=== PATIENT | female | born 1950 | race Caucasian/White ===

== ENCOUNTER 2024-10-16 13:09 | Outpatient (REF) | payer OTHER, SELFPAY ==
[2024-10-16 17:34] LABS: Influenza A PCR POSITIVE (Negative); Influenza B PCR NEGATIVE (Negative); Resp Syncy Virus RNA Qual PCR NEGATIVE (Negative); SARS COV2 PCR INHOUSE NEGATIVE (Negative)
--- OUTSIDE RECORDS SUMMARY | 2024-10-16 18:09 | XMS_ITS | Clinical Summary ---
Author Organization [facility] [address] [place] [address] Address [address] [place], [place] Phone Care Team Providers Care Ball Ender Name Role Phone Marjorie Viveros MD Primary Care Provider [phone] Allergies No known active allergies Medications cholecalciferol [...] 11:00 AM EST Office Visit Adult Medicine [facility] [address] [place] [address] Lauryn Fernández PA Hypercholesterolemia (Primary Dx); Vitamin [...] 12 & older) Biv alent, COVID-19 05/17/2023,06/24/2022 [employer] Covid-19 Bivalent, Or iginal + Ba.1 (Non-US Trademark [employer] Bivalent) 06/24/2022 [employer] SARS-CoV-2 COVID-19, mRNA, LNP-S, preservative free 05/23/2021 [...] care for your loved ones. For example, school child care attendant or elderly care for an older adult? [...] 11:00 AM EDT Office Visit Adult Medicine [facility] [address] [place] [address] Marjorie Viveros MD [address] [place] [address] 03/04/2025 10:30 AM EDT Appointment Radiology Department - [address] [phone] Health Maintenance Due Date Last Done Comments [...] mg/dL LAB CHEMISTRY METHOD 08/05/2024 12:17 PM [facility] Triglycerides 193(H) 0 - 150 mg/dL LAB CHEMISTRY METHOD 08/05/2024 12:17 PM [facility] HDL 75 >=40 mg/dL LAB CHEMISTRY METHOD 08/05/2024 12:17 PM [facility] LDL Calculated 93 0 - 100 mg/dL LAB CHEMISTRY METHOD 08/05/2024 12:17 PM [facility] VLDL Cholesterol Rolando 38.6 mg/dL LAB CHEMISTRY METHOD 08/05/2024 12:17 PM [facility] Non HDL Chol. (LDL+VLDL) 132 <145 mg/dL LAB CHEMISTRY METHOD 08/05/2024 12:17 PM [facility] Chol/HDL Ratio 2.8 0.0 - 4.4 LAB CHEMISTRY METHOD 08/05/2024 12:17 PM [facility] Blood Venous blood specimen / Unknown Venipuncture / Unknown 08/05/2024 9:17 AM EST 08/05/2024 9:17 AM EST us Lauryn ORTEGA LAB BLOOD ORDERABLES Final Re sult [facility] [address] [place] [address], * (ABNORMAL) CBC auto differential (08/05/2024 9:17 AM EST) WBC 4.6(L) 4.8 - 10.8 K/mcL LAB HEMETOLOGY METHOD 08/05/2024 10:09 AM [facility] RBC 4.30 3.80 - 4.80 M/mcL LAB HEMETOLOGY METHOD 08/05/2024 10:09 AM [facility] Hemoglobin 13.7 11.5 - 16.0 g/dL LAB HEMETOLOGY METHOD 08/05/2024 10:09 AM [facility] Hematocrit 40.1 35.0 - 47.0 % LAB HEMETOLOGY METHOD 08/05/2024 10:09 AM [facility] MCV 94.4 79.0 - 98.0 FL LAB HEMETOLOGY METHOD 08/05/2024 10:09 AM [facility] MCH 32.2(H) 27.0 - 32.0 pcg LAB HEMETOLOGY METHOD 08/05/2024 10:09 AM [facility] MCHC 34.2 32.0 - 37.0 g/dL LAB HEMETOLOGY METHOD 08/05/2024 10:09 AM [facility] RDW 12.5 11.0 - 15.0 % LAB HEMETOLOGY METHOD 08/05/2024 10:09 AM [facility] Platelets 214 130 - 400 K/mcL LAB HEMETOLOGY METHOD 08/05/2024 10:09 AM [facility] MPV 10.5 7.0 - 11.0 FL LAB HEMETOLOGY METHOD 08/05/2024 10:09 AM [facility] NRBC 0.0 <1.0 % LAB HEMETOLOGY METHOD 08/05/2024 10:09 AM [facility] NRBC Absolute 0.00 <0.10 K/mcL LAB HEMETOLOGY METHOD 08/05/2024 10:09 AM [facility] Neutrophils Relative 60.5 % LAB HEMETOLOGY METHOD 08/05/2024 10:09 AM [facility] Lymphocytes Relative 30.6 % LAB HEMETOLOGY METHOD 08/05/2024 10:09 AM [facility] Monocytes Relative 6.6 % LAB HEMETOLOGY METHOD 08/05/2024 10:09 AM [facility] Eosinophils Relative 1.7 % LAB HEMETOLOGY METHOD 08/05/2024 10:09 AM EST [facility] Basophils Relative 0.2 % LAB HEMETOLOGY METHOD 08/05/2024 10:09 AM EST [facility] Immature Granulocytes Relative 0.4 % LAB HEMETOLOGY METHOD 08/05/2024 10:09 AM [facility] Neutrophils Absolute 2.77 1.50 - 7.00 K/mcL LAB HEMETOLOGY METHOD 08/05/2024 10:09 AM EST [facility] Lymphocytes Absolute 1.40 1.00 - 5.00 K/mcL LAB HEMETOLOGY METHOD 08/05/2024 10:09 AM [facility] Monocytes Absolute 0.30 0.20 - 1.00 K/mcL LAB HEMETOLOGY METHOD 08/05/2024 10:09 AM [facility] Eosinophils Absolute 0.08 0.00 - 0.50 K/mcL LAB HEMETOLOGY METHOD 08/05/2024 10:09 AM EST [facility] Basophils Absolute 0.01 0.00 - 0.20 K/mcL LAB HEMETOLOGY METHOD 08/05/2024 10:09 AM [facility] Immature Granulocytes Absolute 0.02 0.00 - 0.03 K/mcL LAB HEMETOLOGY METHOD 08/05/2024 10:09 AM [facility] Blood Venous blood specimen / Unknown Venipuncture / Unknown 08/05/2024 9:17 AM EST 08/05/2024 9:17 AM EST us Lauryn ORTEGA LAB BLOOD ORDERABLES Final Re sult [facility] [address] [place] [address], * Vitamin D 25 hydroxy (08/05/2024 9:17 AM EST) Vit D, 25-Hydroxy 36.6 30.0 - 80.0 ng/mL LAB CHEMISTRY METHOD 08/05/2024 12:26 PM [facility] Blood Venous blood specimen / Unknown Venipuncture / Unknown 08/05/2024 9:17 AM EST 08/05/2024 9:17 AM EST us Lauryn ORTEGA LAB BLOOD ORDERABLES Final Re sult [facility] [address] [place] [address], [place] [phone] * Comprehensive metabolic panel (08/05/2024 9:17 AM EST) Sodium 140 133 - 145 mmol/L LAB CHEMISTRY METHOD 08/05/2024 12:17 PM [facility] Potassium 4.2 3.5 - 5.5 mmol/L LAB CHEMISTRY METHOD 08/05/2024 12:17 PM [facility] Chloride 106 96 - 110 mmol/L LAB CHEMISTRY METHOD 08/05/2024 12:17 PM [facility] CO2 27 21 - 32 mmol/L LAB CHEMISTRY METHOD 08/05/2024 12:17 PM [facility] Anion Gap 7 3 - 11 LAB CHEMISTRY METHOD 08/05/2024 12:17 PM [facility] Glucose 96 70 - 100 mg/dL LAB CHEMISTRY METHOD 08/05/2024 12:17 PM [facility] BUN 9 5 - 25 mg/dL LAB CHEMISTRY METHOD 08/05/2024 12:17 PM [facility] Creatinine 0.88 0.50 - 1.10 mg/dL LAB CHEMISTRY METHOD 08/05/2024 12:17 PM [facility] eGFR 69 >=60 mL/min/1. 73m2 LAB CHEMISTRY METHOD 08/05/2024 12:17 PM [facility] Comment:Calculation based on the??Chronic Kidney Disease Epidemiology Collaboration (CKD-EPI) equation refit??without adjustment for race. BUN/Creatinine Ratio 10.2 LAB CHEMISTRY METHOD 08/05/2024 12:17 PM [facility] Calcium 9.8 8.5 - 10.5 mg/dL LAB CHEMISTRY METHOD 08/05/2024 12:17 PM [facility] AST (SGOT) 20 10 - 42 unit/L LAB CHEMISTRY METHOD 08/05/2024 12:17 PM [facility] ALT (SGPT) 28 10 - 60 unit/L LAB CHEMISTRY METHOD 08/05/2024 12:17 PM [facility] Alkaline Phosphatase 76 42 - 121 unit/L LAB CHEMISTRY METHOD 08/05/2024 12:17 PM [facility] Total Protein 7.2 6.0 - 8.0 g/dL LAB CHEMISTRY METHOD 08/05/2024 12:17 PM [facility] Albumin 4.1 3.2 - 5.0 g/dL LAB CHEMISTRY METHOD 08/05/2024 12:17 PM [facility] Total Bilirubin 0.8 0.0 - 1.4 mg/dL LAB CHEMISTRY METHOD 08/05/2024 12:17 PM [facility] Blood Venous blood specimen / Unknown Venipuncture / Unknown 08/05/2024 9:17 AM EST 08/05/2024 9:17 AM EST us Lauryn ORTEGA LAB BLOOD ORDERABLES Final Re sult [facility] [address] [place] [address], * SCREENING MAMMOGRAPHY BI 2-VIEW BREAST INC [...] (World Health Organization Fracture Risk Assessment) [facility] Department of Internal Medicine recommends [...] (World Health Organization Fracture Risk Assessment) [facility] Department of Internal Medicine recommendsusing [...] Resu lt * Hepatitis C Screening (12/31/2013) [facility] Hepatitis C Screening abstracted Historical Provider HEALTH MAINTENANCE Final Result from Last 3 Months or Most Recently Relevant to Health Maintenance Insurance [employer] Care Teams Ball Ender Relationship Specialty Start Date End Date Marjorie Viveros MD [address] [place] [address] PCP - General Internal Medicine 01/13/21
== END 2024-10-16 13:10 | disposition home or self-care (01) ==
LOC: HO.LNP 13:09
PROVIDERS: PCP Internal Medicine; Visit Provider Physician Assistant
DX: B34.9 Viral infection, unspecified (principal); R09.89 Other specified symptoms and signs involving the circulatory and respiratory systems; R50.9 Fever, unspecified; R05.9 Cough, unspecified
CPT/HCPCS: 0241U; 99202

== ENCOUNTER 2024-10-16 13:09 | Outpatient (AMB) | payer OTHER, SELFPAY ==
--- NOTE | 2024-10-16 13:39 | AM.OFFWIN_ITS ---
Intake Vital Signs 10/16/24 13:42 Weight 157 lb 6 oz BP 118/80 Blood Pressure Location Rt brachial Position Sitting Pulse 80 Pulse Source Pulse Oximeter Temp 98.7 F Temp Source Oral Pulse Oximetry (%) 97 Oxygen Delivery Method Room Air Intake Visit Reasons: CST Respiratory symptoms Intake Note: Patient here for fatigue,loss of appetite, no energy and cough that started Saturday. Patient Tobacco Use Status: Never used Tobacco Allergies No Known Allergies Allergy (Verified 10/16/24 13:44) Do you need a note to return to daycare/school/sports/work: No HPI HPI Comments History of Present Illness Details History - The patient is a 74-year-old female wi th acute symptoms of an upper respiratory infection including cough, congestion, and shortness of breath for three days. - The patient reports exacerbation in [facility] affecting daily routine and nutritional intake since the onset. - Negative COVID-19 test at home; experi encing low-grade fevers; no known sick contacts. - Initial inhaler usage showed no signif icant effect. The patient has taken [id number] medications like loratadine and Corecidin. - Denies wheezing but reports overall re spiratory difficulty and headaches without sinus pain when assessed. Physical Exam General: Cooperative, healthy appearing, comfortable and no acute distress Orientation/consciousness: Patient oriented x3 Limitations: No limitations Head: Normal to inspection Ears: Hearing grossly normal bilaterally, external ears normal and TM's normal bilaterally Nose: Normal external nose present, Normal nares present and No nasal discharge present Face and sinus: Normal facial exam and Yes sinuses nontender Mouth: Normal oral and palatal mucosa present and moist mucous membranes Throat: Yes tonsils normal, Yes uvula midline. Posterior oropharynx erythema Eyes: Appearance normal, both eyes and all related structures Neck: Normal visual inspection Respiratory: Clear to auscultation bilaterally. Normal respiratory effort, able to speak in complete sentences, Actively coughing, no respiratory distress, not tachypneic, no tripod positioning and no use of accessory muscles Cardiovascular: Regular rate and rhythm. Normal S1 and S2 Skin: No rashes or lesions noted Neuro: Patient oriented x3 Extremities: Normal to inspection and Yes no clubbing, cyanosis or edema PFSH Social History Patient Tobacco Use Status: Never used Tobacco Review of Systems Const All systems reviewed & are unremarkable except as noted in HPI and below Physical Exam Vital Signs: Last Vital Signs Temp 98.7 F 10/16/24 13:42 Pulse 80 10/16/24 13:42 BP 118/80 10/16/24 13:42 Pulse Ox 95 10/16/24 13:42 Oxygen Delivery Method Room Air 10/16/24 13:42 Assessment & Plan Assessment & Plan (1) Acute viral syndrome: Code(s): B34.9 - Viral infection, unspecified Plan: VSS, pt well appearing and PE unremarkable. The presentation is indicative of a viral respiratory infection, potentially influenza, COVID-19, or RSV. Diagnostic testing for these infections has been conducted with results expected to guide further management. Pending test outcomes, symptomatic treatment will be managed using [id number] options, with a course of prednisone prescribed to reduce inflammation and respiratory discomfort, specifically advising against ibuprofen use concurrently. Cough suppressant is provided for nighttime use and co rticosteroid administration is aligned with diurnal rhythms to prevent insomnia. Symptom alleviation with Corecidin continues. Considering symptom duration, Tamiflu was not administered. Patient awaits test results for definitive viral identification. Patient was informed and verbally consented to the use of an ambient scribe for clinic note documentation during this visit Orders: Orders SARS-CoV2/FLU/RSV Today R09.89 - Other specified symptoms and signs involving the circulatory and respiratory systems Medications: New methylprednisolone PO PER PKG DIR for 6 days 21 ea 0RF benzonatate 200 mg PO BEDTIME PRN 10 caps 0RF cough Coding Level of Care Code New Pt Level 3 (59003) Diagnoses Acute viral syndrome B34.9
[2024-10-16 13:42] VITALS: BP 118/80; PULSE 80; TEMP 37.1; O2SAT 97
--- OUTSIDE RECORDS SUMMARY | 2024-10-16 15:12 | XMS_ITS | Clinical Summary ---
Author Organization [facility] [address] [place] [address] Address [address], [place] Phone Care Team Providers Care Music Intern Name Role Phone Marjorie Viveros MD Primary Care Provider [phone] Allergies No known active allergies Medications cholecalciferol (VITAMIN D-3) 50 mcg (2,000 unit) tablet Take 1 capsule (1,000 Units total) by mouth 1 (one) time each day. Active calcium carbonate-vitam in D 600 mg-10 mcg (400 unit) per tablet Take 1 tablet by mouth 2 (two) times a day. Active atorvastatin (LIPITOR) 20 mg tablet Take 1 tablet (20 mg total) by mouth at bedtime. 90 each 1 08/03/2024 Active Active Problems Problem Noted Date Diagnosed Date Hypercholesterolemia 06/29/2024 Osteopenia 06/29/2024 Vitamin D deficiency 06/29/2024 Overweight (BMI 25.0-29.9) 06/29/2024 Encounters Date Type Department Care Team Description 08/03/2024 11:00 AM EST Office Visit Adult Medicine [facility] [address] [place] [address] Lauryn Fernández PA Hypercholesterolemia (Primary Dx); Vitamin D deficiency; Osteopenia, unspecified location; Overweight (BMI 25.0-29.9); Colon cancer screening from Last 3 Months Immunizations Name Administration Dates Next Due COVID-19 (Pfizer/Comirnaty) 12yo and older 05/17/2023 Influenza Quadravalent, 0.5m l (Fluad) 65yo and older 04/21/2020 Influenza Quadravalent, 0.5m l (Fluzone High-dose) 65yo and older 04/29/2023,06/04/2022,05/08/2021 Influenza trivalent, 0.5mL ( Fluad) 65yo and older 04/28/2024,06/04/2022,04/21/2020,05/26,05/13/2018 Influenza trivalent, 0.5mL ( Fluzone High-dose) 65yo and older 05/26/2019,05/13/2018 Influenza trivalent, 0.5mL, preservative free (Fluarix; FluLaval; Fluzone) ages 6mo and older (Afluria) 3 years and older 04/29/2023,05/08/2021,06/21/2016,07/07,06/16/2014,07/02/2013,06/13/2012 Influenza trivalent, with pr eservative (Fluzone; Afluria) 6mo and older 06/21/2016,07/07/2015,06/16/2014,07/02,06/13/2012 Influenza, Unspecified 05/03/2021 Pfizer (ages 12 & older) Biv alent, COVID-19 05/17/2023,06/24/2022 Ringpay Covid-19 Bivalent, Or iginal + Ba.1 (Non-US Trademark COMIRNATReCoTech Bivalent) 06/24/2022 Ringpay SARS-CoV-2 COVID-19, mRNA, LNP-S, preservative free 05/23/2021 Pneumococcal conjugate 13 va lent (Prevnar 13, PCV13) 2mo and older 03/29/2016 Pneumococcal polysaccharide 23 valent (Pneumovax 23) 2yo and older 12/23/2014 Td Tetanus diptheria (Tdvax) 7yo and older 07/31/2023 Td Tetanus diptheria, preser vative free (Tenivac) 7yo and older 12/05/2022 Tdap Tetanus diptheria acell ular pertussis (Boostrix; Adacel) 7yo and older 12/01/2012 Zoster recombinant (Shingrix ) 19yo and older 06/23/2020,04/21/2020 Surgical History Surgery Date Site/Laterality Comments TUBAL LIGATION PROCEDURE: HISTORICAL TUBAL LIGATION TONSILLECTOMY PROCEDURE: HISTORICAL TONSILLECTOMY OTHER SURGICAL HISTORY 12/2021 Bilateral PROCEDURE: MAMMOGRAM, SCREENING, BOTH BREASTS COLONOSCOPY 04/01/2014 PROCEDURE: HISTORICAL COLONOSCOPY Medical History Medical History Date Comments Historical Medical DX 08/05/2012 DX:Hyperli pidemia LDL goal < 160 Osteopenia 08/01/2022 DX:Osteopenia Vitamin D deficiency 08/01/2022 DX:Vitamin D deficiency Family History Medical History Relation Name Comments Breast cancer Aunt mat 44 Breast cancer Mother age 70 Coronary artery disease Mother age 70 ca b reast Colon cancer Neg Hx Ovarian cancer Neg Hx Uterine cancer Neg Hx Relation Name Status Comments Aunt mat 44 Father Maternal Grandfather Maternal Grandmother Mother age 70 Paternal Grandfather Paternal Grandmother Social History Tobacco Use Types Packs/Day Years Used Date Smoking Tobacco: Never Smokeless Tobacco: Never Tobacco Cessation:Counseling Given: Not Answered Alcohol Use Standard Drinks/Week Comments Yes 0 (1 standard drink = 0.6 oz pur e alcohol) Housing Instability Answer Date Recorde d Are you worried that in the next 2 months you may not have stable housing? No 07/27/2024 Food Access & Nutrition Answer Date Rec orded Do you have access to a vari ety of food including fruits and vegetables? Yes 07/27/2024 Access to Healthcare Answer Date Record ed Within the last 3 months, ho w many times did you visit the emergency department for your medical care? 0 07/27/2024 Health Literacy Answer Date Recorded How often do you need to hav e someone help you when you read instructions, pamphlets, or other written material from your doctor or pharmacy? Never 07/27/2024 Caregiver: How often do you need to have someone help you when you read instructions, pamphlets, or other written material from your doctor or pharmacy? Not on file 07/27/2024 Financial Risk Answer Date Recorded How hard is it for you to pa y for the very basics like food, housing, medical care, and air conditioning / heating? Not very hard 07/27/2024 Transportation Answer Date Recorded Has the lack of transportati on kept you from meetings, work, or from getting things needed for daily living? No Has the lack of transportati on kept you from medical appointments or from getting medications? No 07/27/2024 Social Isolation Answer Date Recorded How often do you feel lonely or isolated from th ose around you? Never 07/27/2024 Food Risk Answer Date Recorded Within the past 12 months we worried whether our food would run out before we got money to buy more. Never true 07/27/2024 Within the past 12 months th e food we bought just didn't last and we didn't have money to get more. Never true 07/27/2024 Dependent Care Answer Date Recorded Do you need help finding or paying for care for your loved ones. For example, child care teacher or elderly care for an older adult? No 07/27/2024 Education Answer Date Recorded Do you think completing more education or training, like finishing a GED, going to college, or learning a trade, would be helpful for you? No 07/27/2024 Employment and Income Answer Date Recor ded During the last four weeks, have you been actively looking for work? No 07/27/2024 Comments Unknown Sex and Gender Information Value Date Recorded Sex Assigned at Not on file Legal Sex Female 6:30 AM EST Gender Identity Not on file Sexual Orientation Not on file Obstetrics History Last Filed Vital Signs Vital Sign Reading Time Taken Comments Blood Pressure 130/74 08/03/2024 10:56 AM EST Pulse 57 08/03/2024 10:56 AM EST Temperature 35.9 ??C (96.7 ??F) 08/03/2024 10:[address] Respiratory Rate 14 08/03/2024 10:56 AM EST Oxygen Saturation 97% 08/03/2024 10:56 AM EST Inhaled Oxygen Concentration - - Weight 72.6 kg (160 lb) 08/03/2024 10:56 AM EST Height 165.1 cm (5' 5 ) 08/03/2024 10:56 AM EST Body Mass Index 26.63 08/03/2024 10:56 AM EST Plan of Treatment Upcoming Encounters Date Type Department Care Team (Late st Contact Info) Description 02/02/2025 11:00 AM EDT Office Visit Adult Medicine [facility] [address] [place] [address] Marjorie Viveros MD [address] [place] [address] 03/04/2025 10:30 AM EDT Appointment Radiology Department - [address] [phone] Health Maintenance Due Date Last Done Comments Colorectal Cancer Screening: Colonoscopy 07/28/2022 Medicare Annual Wellness Visit 07/28/2022 RSV Immunization Patients 60+ Years Old (1 - 1-dose 75+ series) 2024 Depression Screening 07/27/2025 07/27/2024 Social Influencers of Health Screening 07/27/2025 07/27/2024 Falls Risk Assessment 08/03/2025 08/03/2024 Cholesterol Screening (Lipid Panel) 08/05/2029 08/05/2024, 07/25/2023 DTaP,Tdap,and Td Vaccines (4 - Td or Tdap) 07/31/2033 07/31/2023, 12/05/2022, 12/01/2012 Osteoporosis Screening (Bone Density Screening) 10/03/2033 10/03/2023, 12/14/2020, 04/29/2017 Hepatitis C Screening Completed 12/31/2013 Pneumococcal Vaccine: 50+ Years Completed 03/29/2016, 12/23/2014 Zoster Vaccines Completed 06/23/2020, 04/21/2020 Breast Cancer Screening Discontinued 02/26/20 24, 02/26/2024, 02/06/2023, Additional history exists COVID-19 Vaccine Completed 04/28/2024, , 05/17/2023, Additional history exists Influenza Vaccine Completed 04/28/2024, , 04/29/2023, Additional history exists HIB Vaccines Aged Out No longer eligi ble based on patient's age to complete this topic HPV Vaccines Aged Out No longer eligi ble based on patient's age to complete this topic Hepatitis A Vaccines Aged Out No long er eligible based on patient's age to complete this topic Hepatitis B Vaccines Aged Out No long er eligible based on patient's age to complete this topic IPV Vaccines Aged Out No longer eligi ble based on patient's age to complete this topic MMR Vaccines Aged Out No longer eligi ble based on patient's age to complete this topic Meningococcal ACWY Vaccine Aged Out N o longer eligible based on patient's age to complete this topic Meningococcal B Vacine Aged Out No lo nger eligible based on patient's age to complete this topic RSV Immunization Patients Under 20 months Aged Out No longer eligible based on patient's age to complete this topic Varicella Vaccines Aged Out No longer eligible based on patient's age to complete this topic Procedures Procedure Name Priority Date/Time Associated Diagnosis Comments CBC WITH AUTO DIFFERENTIAL Routine 08/05/2024 9:17 AM EST Hypercholesterolemi a Vitamin D deficiency Osteopenia, unspecified location Overweight (BMI 25.0-29.9) CBC AND DIFFERENTIAL Routine 08/05/2024 9:17 AM EST Hypercholesterolemi a Vitamin D deficiency Osteopenia, unspecified location Overweight (BMI 25.0-29.9) COMPREHENSIVE METABOLIC PANEL Routine 08/05/2024 9:17 AM EST Hypercholesterolemi a Vitamin D deficiency Osteopenia, unspecified location Overweight (BMI 25.0-29.9) LIPID PANEL WITH REFLEX TO DIRECT LDL Routine 08/05/2024 9:17 AM EST Hypercholesterolemi a VITAMIN D 25 HYDROXY Routine 08/05/2024 9:17 AM EST Vitamin D deficiency Osteopenia, unspecified location SCREENING MAMMOGRAPHY BI 2-VIEW BREAST INC CAD Routine 02/26/2024 11:24 AM EDT Encounter for screening mammogram for malignant neoplasm of breast DXA BONE DENSITY STUDY 1+ SITS AXIAL SKEL Routine 10/03/2023 2:37 PM EST Other specified disorders of bone density and structure, unspecified site HM HEPATITIS C SCREENING Routine 12/31/2013 from Last 3 Months or Most Recently Relevant to Health Maintenance Results * (ABNORMAL) Lipid panel with reflex to direct LDL (08/05/2024 9:17 AM EST) Cholesterol 207(H) 0 - 200 mg/dL LAB CHEMISTRY METHOD 08/05/2024 12:17 PM [facility] Triglycerides 193(H) 0 - 150 mg/dL LAB CHEMISTRY METHOD 08/05/2024 12:17 PM [facility] HDL 75 >=40 mg/dL LAB CHEMISTRY METHOD 08/05/2024 12:17 PM [facility] LDL Calculated 93 0 - 100 mg/dL LAB CHEMISTRY METHOD 08/05/2024 12:17 PM [facility] VLDL Cholesterol Rolando 38.6 mg/dL LAB CHEMISTRY METHOD 08/05/2024 12:17 PM [facility] Non HDL Chol. (LDL+VLDL) 132 <145 mg/dL LAB CHEMISTRY METHOD 08/05/2024 12:17 PM [facility] Chol/HDL Ratio 2.8 0.0 - 4.4 LAB CHEMISTRY METHOD 08/05/2024 12:17 PM [facility] Blood Venous blood specimen / Unknown Venipuncture / Unknown 08/05/2024 9:17 AM EST 08/05/2024 9:17 AM EST us Lauryn ORTEGA LAB BLOOD ORDERABLES Final Re sult [facility] [address] [place] [address], * (ABNORMAL) CBC auto differential (08/05/2024 9:17 AM EST) WBC 4.6(L) 4.8 - 10.8 K/mcL LAB HEMETOLOGY METHOD 08/05/2024 10:09 AM [facility] RBC 4.30 3.80 - 4.80 M/mcL LAB HEMETOLOGY METHOD 08/05/2024 10:09 AM [facility] Hemoglobin 13.7 11.5 - 16.0 g/dL LAB HEMETOLOGY METHOD 08/05/2024 10:09 AM [facility] Hematocrit 40.1 35.0 - 47.0 % LAB HEMETOLOGY METHOD 08/05/2024 10:09 AM [facility] MCV 94.4 79.0 - 98.0 FL LAB HEMETOLOGY METHOD 08/05/2024 10:09 AM [facility] MCH 32.2(H) 27.0 - 32.0 pcg LAB HEMETOLOGY METHOD 08/05/2024 10:09 AM [facility] MCHC 34.2 32.0 - 37.0 g/dL LAB HEMETOLOGY METHOD 08/05/2024 10:09 AM [facility] RDW 12.5 11.0 - 15.0 % LAB HEMETOLOGY METHOD 08/05/2024 10:09 AM [facility] Platelets 214 130 - 400 K/mcL LAB HEMETOLOGY METHOD 08/05/2024 10:09 AM [facility] MPV 10.5 7.0 - 11.0 FL LAB HEMETOLOGY METHOD 08/05/2024 10:09 AM [facility] NRBC 0.0 <1.0 % LAB HEMETOLOGY METHOD 08/05/2024 10:09 AM [facility] NRBC Absolute 0.00 <0.10 K/mcL LAB HEMETOLOGY METHOD 08/05/2024 10:09 AM [facility] Neutrophils Relative 60.5 % LAB HEMETOLOGY METHOD 08/05/2024 10:09 AM [facility] Lymphocytes Relative 30.6 % LAB HEMETOLOGY METHOD 08/05/2024 10:09 AM [facility] Monocytes Relative 6.6 % LAB HEMETOLOGY METHOD 08/05/2024 10:09 AM [facility] Eosinophils Relative 1.7 % LAB HEMETOLOGY METHOD 08/05/2024 10:[address] [facility] Basophils Relative 0.2 % LAB HEMETOLOGY METHOD 08/05/2024 10:[address] [facility] Immature Granulocytes Relative 0.4 % LAB HEMETOLOGY METHOD 08/05/2024 10:09 AM [facility] Neutrophils Absolute 2.77 1.50 - 7.00 K/mcL LAB HEMETOLOGY METHOD 08/05/2024 10:[address] [facility] Lymphocytes Absolute 1.40 1.00 - 5.00 K/mcL LAB HEMETOLOGY METHOD 08/05/2024 10:09 AM [facility] Monocytes Absolute 0.30 0.20 - 1.00 K/mcL LAB HEMETOLOGY METHOD 08/05/2024 10:09 AM [facility] Eosinophils Absolute 0.08 0.00 - 0.50 K/mcL LAB HEMETOLOGY METHOD 08/05/2024 10:[address] [facility] Basophils Absolute 0.01 0.00 - 0.20 K/mcL LAB HEMETOLOGY METHOD 08/05/2024 10:09 AM [facility] Immature Granulocytes Absolute 0.02 0.00 - 0.03 K/mcL LAB HEMETOLOGY METHOD 08/05/2024 10:09 AM [facility] Blood Venous blood specimen / Unknown Venipuncture / Unknown 08/05/2024 9:17 AM EST 08/05/2024 9:17 AM EST us Lauryn ORTEGA LAB BLOOD ORDERABLES Final Re sult [facility] [address] [place] [address], * Vitamin D 25 hydroxy (08/05/2024 9:17 AM EST) Vit D, 25-Hydroxy 36.6 30.0 - 80.0 ng/mL LAB CHEMISTRY METHOD 08/05/2024 12:26 PM [facility] Blood Venous blood specimen / Unknown Venipuncture / Unknown 08/05/2024 9:17 AM EST 08/05/2024 9:17 AM EST us Lauryn ORTEGA LAB BLOOD ORDERABLES Final Re sult [facility] [address] [place] [address], [place] [phone] * Comprehensive metabolic panel (08/05/2024 9:17 AM EST) Sodium 140 133 - 145 mmol/L LAB CHEMISTRY METHOD 08/05/2024 12:17 PM [facility] Potassium 4.2 3.5 - 5.5 mmol/L LAB CHEMISTRY METHOD 08/05/2024 12:17 PM [facility] Chloride 106 96 - 110 mmol/L LAB CHEMISTRY METHOD 08/05/2024 12:17 PM [facility] CO2 27 21 - 32 mmol/L LAB CHEMISTRY METHOD 08/05/2024 12:17 PM [facility] Anion Gap 7 3 - 11 LAB CHEMISTRY METHOD 08/05/2024 12:17 PM [facility] Glucose 96 70 - 100 mg/dL LAB CHEMISTRY METHOD 08/05/2024 12:17 PM [facility] BUN 9 5 - 25 mg/dL LAB CHEMISTRY METHOD 08/05/2024 12:17 PM [facility] Creatinine 0.88 0.50 - 1.10 mg/dL LAB CHEMISTRY METHOD 08/05/2024 12:17 PM [facility] eGFR 69 >=60 mL/min/1. 73m2 LAB CHEMISTRY METHOD 08/05/2024 12:17 PM [facility] Comment:Calculation based on the??Chronic Kidney Disease Epidemiology Collaboration (CKD-EPI) equation refit??without adjustment for race. BUN/Creatinine Ratio 10.2 LAB CHEMISTRY METHOD 08/05/2024 12:17 PM [facility] Calcium 9.8 8.5 - 10.5 mg/dL LAB CHEMISTRY METHOD 08/05/2024 12:17 PM [facility] AST (SGOT) 20 10 - 42 unit/L LAB CHEMISTRY METHOD 08/05/2024 12:17 PM [facility] ALT (SGPT) 28 10 - 60 unit/L LAB CHEMISTRY METHOD 08/05/2024 12:17 PM [facility] Alkaline Phosphatase 76 42 - 121 unit/L LAB CHEMISTRY METHOD 08/05/2024 12:17 PM [facility] Total Protein 7.2 6.0 - 8.0 g/dL LAB CHEMISTRY METHOD 08/05/2024 12:17 PM [facility] Albumin 4.1 3.2 - 5.0 g/dL LAB CHEMISTRY METHOD 08/05/2024 12:17 PM [facility] Total Bilirubin 0.8 0.0 - 1.4 mg/dL LAB CHEMISTRY METHOD 08/05/2024 12:17 PM [facility] Blood Venous blood specimen / Unknown Venipuncture / Unknown 08/05/2024 9:17 AM EST 08/05/2024 9:17 AM EST us Lauryn ORTEGA LAB BLOOD ORDERABLES Final Re sult [facility] [address] [place] [address], * SCREENING MAMMOGRAPHY BI 2-VIEW BREAST INC CAD (02/26/2024 11:24 AM EDT) Anatomical Region Laterality Modality Radiographic Antionette ging 02/06/2023 11:1 7 AM EDT Narrative 02/26/2024 4:21 PM EDT This is a summary report. The complete report is available in the patient's medical record. If you cannot access the medical record, please contact the sending organization for a detailed fax or copy. Full field digital screening 2D C views and 3D tomosynthesis mammography, reviewed with CAD and compared to previous. The breasts are composed of fatty and fibroglandular tissue. ??No suspicious mass, architectural distortion or suspicious calcifications are identified. IMPRESSION: : No mammographic evidence of malignancy. BIRADS 1-Negative; N. 5 year breast cancer risk assessment N/A Lifetime breast cancer risk assessment N/A Breast cancer risk category Breast cancer risk not assessed Procedure Note Elisa Bean MD - 06/03/2024 This is a summary report. The complete report is available in thepatient's medical record. If you cannot access the medical record, pleasecontact the sending organization for a detailed fax or copy. Full field digital screening 2D C views and 3D tomosynthesis mammography,reviewed with CAD and compared to previous. The breasts are composed offatty and fibroglandular tissue. No suspicious mass, architecturaldistortion or suspicious calcifications are identified. IMPRESSION: : No mammographic evidence of malignancy. BIRADS 1-Negative; N. 5 year breast cancer risk assessment N/A Lifetime breast cancer risk assessment N/A Breast cancer risk category Breast cancer risk not assessed us Marjorie Viveros MD IMG XR PROCEDURES Final Result * DXA BONE DENSITY STUDY 1+ SITS AXIAL SKEL (10/03/2023 2:37 PM EST) Anatomical Region Laterality Modality Bone Densitometr y 07/31/2023 11:3 1 AM EST Narrative 10/03/2023 6:24 PM EST BONE DENSITY ? Lumbar Spine T-score is -0.9 ?? (SD relative to 20-29 y/o adult) Z-score is +1.5 ??(SD relative to age matched peers) This is normal by criteria defined by the WHO. Left Hip T-score is -1.5 Z-score is +0.5 This is consistent with osteopenia by criteria defined by the WHO. Comparison exam(s): significant increase in bone density of ??hip when compared to most recent bone density examination ?? Confidence level is +/-95%. Impression: Based on the World Health Organization criteria, Viji Valencia should be classified as having osteopenia. This patient has a 11% risk of major osteoporotic fracture and a 2.1% risk of hip fracture over the next 10 years. (World Health Organization Fracture Risk Assessment) [facility] Department of Internal Medicine recommends using National Osteoporosis Foundation (NOF) guidelines in treatment decisions related to osteoporosis. NOF guidelines suggest considering treatment for postmenopausal women and men aged 50 or older presenting with the following: History of hip or vertebral fracture. T-score less than or equal to -2.5 (DXA) at the femoral neck, total hip, or spine, after appropriate evaluation to exclude secondary causes. Low bone mass (T-score between -1.0 and -2.5 at the femoral neck or spine) AND a 10-year probability of a hip fracture greater than or equal to 3% OR a 10-year probability of a major osteoporosis-related fracture greater than or equal to 20% based on the [place]-adapted WHO algorithm Please note that all treatment decisions require clinical judgment and consideration of individual patient factors, including patient preferences, co-morbidities, previous drug use, risk factors not captured in the FRAX model (e.g., frailty, falls, vitamin D deficiency, increased bone turnover, interval significant decline in bone density) and possible under- or over-estimation of fracture risk by FRAX. Procedure Note Elisa Bean MD - 04/06/2024 BONE DENSITY Lumbar Spine T-score is -0.9 (SD relative to 20-29 y/o adult) Z-score is +1.5 (SD relative to age matched peers) This is normal by criteria defined by the WHO. Left Hip T-score is -1.5 Z-score is +0.5 This is consistent with osteopenia by criteria defined by the WHO. Comparison exam(s): significant increase in bone density of hip whencompared to most recent bone density examination Confidence level is +/-95%. Impression: Based on the World Health Organization criteria, Viji Valencia should beclassified as having osteopenia. This patient has a 11% risk of majorosteoporotic fracture and a 2.1% risk of hip fracture over the next 10years. (World Health Organization Fracture Risk Assessment) [facility] Department of Internal Medicine recommendsusing National Osteoporosis Foundation (NOF) guidelines in treatmentdecisions related to osteoporosis. NOF guidelines suggest consideringtreatment for postmenopausal women and men aged 50 or older presentingwith the following: History of hip or vertebral fracture. T-score less than or equal to -2.5 (DXA) at the femoral neck, total hip,or spine, after appropriate evaluation to exclude secondary causes. Low bone mass (T-score between -1.0 and -2.5 at the femoral neck or spine)AND a 10-year probability of a hip fracture greater than or equal to 3% ORa 10-year probability of a major osteoporosis-related fracture greaterthan or equal to 20% based on the [place]-adapted WHO algorithm Please note that all treatment decisions require clinical judgment andconsideration of individual patient factors, including patientpreferences, co-morbidities, previous drug use, risk factors not capturedin the FRAX model (e.g., frailty, falls, vitamin D deficiency, increasedbone turnover, interval significant decline in bone density) and possibleunder- or over-estimation of fracture risk by FRAX. Lauryn ORTEGA IMG DXA PROCEDURES Final Resu lt * Hepatitis C Screening (12/31/2013) [facility] Hepatitis C Screening abstracted Historical Provider HEALTH MAINTENANCE Final Result from Last 3 Months or Most Recently Relevant to Health Maintenance Insurance [employer] MED[employer] Care Teams Music Intern Relationship Specialty Start Date End Date Marjorie Viveros MD [address] [place] [address] PCP - General Internal Medicine 01/13/21
== END 2024-10-16 14:32 | disposition home or self-care (01) ==
PROVIDERS: PCP Internal Medicine; Visit Provider Physician Assistant
DX: B34.9 Viral infection, unspecified (principal)

== ENCOUNTER 2024-10-26 14:02 | Inpatient (IN) | payer OTHER, SELFPAY ==
[2024-10-26] VITALS (7 sets, daily range): BP systolic 133–186; BP diastolic 70–78; PULSE 80–108; RESP 16–24; TEMP 36.8–37.4; O2SAT 87–98; BMI 25.1
--- NOTE | ~2024-10-26 | XR_ITS ---
EXAMINATION: XR CHEST 2 VIEWS HISTORY: dyspnea COMPARISON: There are no prior studies for comparison. FINDINGS: PA and lateral views of the chest are submitted. There is confluent airspace opacity in the right lower lobe, consistent with pneumonia. The left lung is clear. There is no pleural effusion, pneumothorax, or pulmonary vascular congestion. The heart is normal in size. The bones are intact. XR/XR chest 2V IMPRESSION: Right lower lobe pneumonia. Follow-up is recommended to document resolution. Electronically signed by: Sandro Mcguire MD 10/26/2024 03:20 PM EDT
--- NOTE | 2024-10-26 14:28 | ED_ITS ---
HPI - General Adult General Chief complaint: Upper Respiratory Symptoms Stated complaint: PER EMS SOB 89%RA Time Seen by Provider: 10/26/24 14:28 Source: patient, EMS, RN notes reviewed and old records reviewed Mode of arrival: EMS Limitations: no limitations History of Present Illness ED Provider: Cam HPI narrative: Patient is a 74-year-old female presenting to the emergency department from PCP office with complaint of hypoxia, worsening shortness of breath and fever. Patient tested positive for influenza a on 10/16/2024. States that since Saturday, she has been having fevers with T-max of 103?. Taking Tylenol at home. States cough is occasionally productive of clear sputum. Denies any chest pain or palpitations. Oxygen saturation was 89% on room air at PCP office, increased to 98% on 2 liters/min. Denies abdominal pain, nausea, vomiting or diarrhea. MD complaint: hypoxia, fever Onset (ago): day(s) Related Data Home Medications ?Medication ?Instructions ?Recorded ?Confirmed atorvastatin 20 mg tablet mg PO DAILY 10/16/24 Previous Rx's ?Medication ?Instructions ?Recorded benzonatate 200 mg capsule 200 mg PO BEDTIME PRN cough #10 10/16/24 caps methylprednisolone 4 mg tablets in See Rx Instructions PO PER PKG DIR 10/16/24 a dose pack #21 ea Allergies Allergy/AdvReac Type Severity Reaction Status Date / Time No Known Allergies Allergy Verified 10/26/24 14:25 Review of Systems 2 Review of Systems: As per HPI Yes all other systems are reviewed and are negative Constitutional: Constitutional: Reports as per HPI [facility] Social History Social History Alcohol intake: current Patient Tobacco Use Status: Never used Tobacco Smoked in Last 30 Days: No Use of substances other than those prescribed or required for medical reasons: No Advance Directives: No Advance Directives Information Provided: Yes Physical Exam ED Vital Signs: Vital Signs - 24 hr 10/26/24 14:21 10/26/24 15:07 10/26/24 15:46 Temperature 99.3 F Pulse Rate 98 90 Respiratory Rate 18 16 Blood Pressure 140/72 H Pulse Oximetry 98 95 91 L Oxygen Delivery Method Nasal Cannula Nasal Cannula Room Air BMI result Body Mass Index 25.1 Vital signs have been reviewed and appear to be correct. Blood pressure normal. Heart rate normal. Respiratory rate normal. Temperature normal. Oxygen saturation normal on O2, 92% on room air. Const General: cooperative, healthy appearing and no acute distress Orientation/consciousness: oriented to person, oriented to place, oriented to time and patient oriented x3 Limitations: no limitations HENMT Head: Yes normocephalic and Yes atraumatic Ears: external ears normal General nose exam: Normal external nose present Face and sinus: Yes face symmetric Mouth: oropharynx normal and moist mucous membranes Throat: Yes uvula midline Eyes Pupils: Equal, round and reactive pupils present Neck Neck: Yes normal visual inspection and Yes supple Resp Effort & Inspection: normal respiratory effort and able to speak in complete sentences Auscultation: diminished lung sounds diffuse Cardio Rate: regular rate Rhythm: regular rhythm Heart sounds: S1 normal heart sound present and S2 normal heart sound present GI Palpation (GI): Soft to palpation and nontender Auscultation: normoactive bowel sounds General: Yes no CVA tenderness Back/Spine/Pelvis Back: no CVA tenderness Skin General skin exam: elasticity normal and turgor normal Neuro General: oriented to person, oriented to place, oriented to time, patient oriented x3, moves all extremities, no focal motor deficits and CN's II-XI intact bilaterally Cranial nerves: Yes Equal, round and reactive pupils present Cognition (Neuro): normal cognition Extrem General: Yes full ROM, Yes no pedal edema and Yes no calf tenderness Psych Mental Status: mental status grossly normal Affect: normal affect Thought process: Normal thought process present Medications Administered Generic Name Dose Route Start Last Admin Trade Name Freq PRN Reason Stop Dose Admin Azithromycin 500 mg/ Sodium 250 mls @ 125 mls/hr 10/26/24 15:25 10/26/24 15:40 Chloride IV 10/26/24 17:24 125 mls/hr ONCE ONE Administration Discontinued Medications Generic Name Dose Route Start Last Admin Trade Name Freq PRN Reason Stop Dose Admin Ceftriaxone Sodium 1 gm 10/26/24 15:25 10/26/24 15:40 Ceftriaxone Sodium 1 Gm Vial IVPUSH 10/26/24 15:26 1 gm ONCE ONE Administration Medical Decision Making Medical Decision Making [facility] Narrative: Patient is a 74-year-old female presenting to the emergency department from PCP office with complaint of hypoxia, worsening shortness of breath and fever. On exam patient is awake, A+Ox3, hypoxic on room air, VS otherwise WNL, afebrile, normal neurological exam without focal deficits, physical exam findings as above. Given reported symptoms and physical exam findings, initial differential includes but is not limited to bronchitis, pneumonia, other viral illness. Labs notable for mild leukocytosis with left shift. X-ray notable for right lower lobe pneumonia. My interpretation is in agreement with the radiologist's interpretation. Patient updated on results and all questions answered. IV antibiotics ordered. Do not suspect sepsis at 3:30 p.m.. Patient remains hypoxic on room air, feels she requires admission for supplemental O2. Case discussed with hospitalist. Differential Diagnosis Differential Diagnoses: The differential diagnosis associated with the presentation includes as per [facility] Admission/Observation Consideration of admission/observation: Escalation of care including admission/observation considered Consult Healthcare Provider Management of the patient was discussed with: Hospitalist Lab Data [facility] Lab Attestation statement: I reviewed the patient's lab results. As per [facility] 10/26/24 14:46 10/26/24 14:46 Labs: Lab Results 10/26/24 Range/Units 14:46 WBC 11.5 H (4.8-10.8) X10*3/uL RBC 4.15 L (4.20-5.50) X10*6/uL Hgb 13.1 (12.0-16.0) g/dl Hct 36.9 L (37.0-47.0) % MCV 88.9 (80.0-98.0) fL MCH 31.6 (27.0-33.0) pg MCHC 35.5 H (31.0-35.0) g/dl RDW 12.8 (11.0-16.0) % Plt Count 252 (160-400) X10*3/uL MPV 9.3 L (9.4-12.3) fL Immature Gran % (Auto) 0.8 H (0.0-0.4) % Neut % (Auto) 86.8 H (45-73) % Lymph % (Auto) 4.9 L (20-40) % [place] % (Auto) 7.3 (2-11) % Eos % (Auto) 0.1 (0-4) % Baso % (Auto) 0.1 (0-2) % Lymph # (Auto) 0.6 L (1.2-4.9) X10*3/uL [place] # (Auto) 0.8 (0.1-1.2) X10*3/uL Eos # (Auto) 0.0 (0.0-0.4) X10*3/uL Baso # (Auto) 0.0 (0.0-0.2) X10*3/uL Abs Immat Gran (auto) 0.09 H (0.00-0.03) X10*3/uL Absolute Neuts (auto) 10.0 H (2.0-8.3) x10*3/uL Absolute Nucleated RBC 0.000 (0.0-0.012) X10*3/uL Nucleated RBC % (auto) 0.0 (0.0-0.2) /100WBC Sodium 139 (135-145) mmol/L Potassium 3.5 (3.3-5.1) mmol/L Chloride 106 (96-108) mmol/L Carbon Dioxide 22 (22-29) mmol/L Anion Gap 15 (12-20) BUN 10 (9-16) mg/dL Creatinine 0.63 (0.5-1.4) mg/dL Estim Creat Clear Calc 75.4 Estimated GFR > 60 Random Glucose 131 H (60-115) mg/dL Calcium 8.8 (8.4-10.2) mg/dL Total Bilirubin 1.2 H (0.0-1.0) mg/dL AST 22 (5-31) U/L ALT 19 (0-31) U/L Alkaline Phosphatase 75 (39-117) U/L Troponin I High Sens 3.8 (<3.5-17.0) ng/L Total Protein 7.6 (6.5-8.0) g/dL Albumin 3.6 (3.5-5.0) g/dL Influenza Type A (PCR) NEGATIVE (Negative) Influenza Type B (PCR) NEGATIVE (Negative) RSV RNA Qual (PCR) NEGATIVE (Negative) SARS-CoV-2 RNA (RT-PCR) NEGATIVE (Negative) Independent Interpretation I performed an independent interpretation of an: Plain X-Ray Interpretation: Right lower lobe pneumonia on chest x-ray. Radiology Impression Discussion of test interpretation with radiology: I have reviewed the radiologist's reading. Radiologist Impression: XR/XR chest 2V IMPRESSION: Right lower lobe pneumonia. Follow-up is recommended to document resolution. External Record Review External record reviewed: Inpatient record, Office record and Outpatient record Prescription Management I considered prescription management with: Antibiotic Discharge Plan Discharge Patient Disposition: Admitted As Inpatient Print Language: Kyrgyz
--- NOTE | 2024-10-26 14:33 | ECG_ITS ---
Test Reason : SOB Blood Pressure : */* mmHG Vent. Rate : 86 BPM Atrial Rate : 86 BPM P-R Int : 140 ms QRS Dur : 76 ms QT Int : 422 ms P-R-T Axes : 38 14 168 degrees QTcB Int : 504 ms Normal sinus rhythm ST & T wave abnormality, consider inferior ischemia ST & T wave abnormality, consider anterolateral ischemia Prolonged QT Abnormal ECG No previous ECGs available Referred By: Adele Levy Electronically Signed By: HUSSEIN MORELOS
[2024-10-26 14:52] LABS: MANUAL DIFF FLAG NO
[2024-10-26 14:53] LABS: Basophils Percent Auto 0.1 % (0-2); Eosinophils Percent Auto 0.1 % (0-4); Hematocrit 36.9 % (37.0-47.0); Hemoglobin 13.1 g/dl (12.0-16.0); Imm Gran Abs Auto 0.09 X10*3/uL (0.00-0.03); Imm Gran Pct Auto 0.8 % (0.0-0.4); Lymphocytes Absolute Auto 0.6 X10*3/uL (1.2-4.9); Lymphocytes Percent Auto 4.9 % (20-40); Mean Corpuscular HGB Conc 35.5 g/dl (31.0-35.0); Mean Corpuscular Hemoglobin 31.6 pg (27.0-33.0); Mean Corpuscular Volume 88.9 fL (80.0-98.0); Mean Platelet Volume 9.3 fL (9.4-12.3); Monocytes Absolute Auto 0.8 X10*3/uL (0.1-1.2); Monocytes Percent Auto 7.3 % (2-11); Neutrophils Percent Auto 86.8 % (45-73); Platelet Count 252 X10*3/uL (160-400); Red Blood Count 4.15 X10*6/uL (4.20-5.50); Red Cell Distribution Width 12.8 % (11.0-16.0); White Blood Count 11.5 X10*3/uL (4.8-10.8)
--- NOTE | 2024-10-26 15:10 | PC.NURSE ---
pt reports that she recently had the flu and was put on a prednisone taper for 1 week. today she went to the office and was found to be hypoxic - 89% on RA. pt states no respiratory disorders are in her hx. EMS places pt on 2L NC with good effect. She arrives with an IV in her left AC and EMS gave 500ml NS. IN ED, pt remains on 2L and Spo2 is 95%. NSR on tele.
[2024-10-26 15:14] LABS: Alanine Aminotransferase 19 U/L (0-31); Albumin Level 3.6 g/dL (3.5-5.0); Alkaline Phosphatase 75 U/L (39-117); Anion Gap 15 (12-20); Aspartate Amino Transferase 22 U/L (5-31); Bilirubin Total 1.2 mg/dL (0.0-1.0); Blood Urea Nitrogen 10 mg/dL (9-16); Calcium 8.8 mg/dL (8.4-10.2); Carbon Dioxide 22 mmol/L (22-29); Chloride 106 mmol/L (96-108); Creatinine Clr Calc Pharmacy 75.4; Estimated Glomerular Filt Rate > 60; Glucose Random 131 mg/dL (60-115); Potassium 3.5 mmol/L (3.3-5.1); Sodium 139 mmol/L (135-145); Total Protein 7.6 g/dL (6.5-8.0)
[2024-10-26 15:23] LABS: Troponin-I High Sensitivity 3.8 ng/L (<3.5-17.0)
[2024-10-26 15:32] LABS: Influenza A PCR NEGATIVE (Negative); Influenza B PCR NEGATIVE (Negative); Resp Syncy Virus RNA Qual PCR NEGATIVE (Negative); SARS COV2 PCR INHOUSE NEGATIVE (Negative)
[2024-10-26] MEDS: cefTRIAXone sodium 1 GM VIAL IVPUSH (15:40)
[2024-10-26] MEDS: Azithromycin 500 MG in 0.9 % Sodium Chloride 250 ML 125 MG IV (15:40)
--- NOTE | 2024-10-26 15:58 | PC.NURSE ---
pt trialed off oxygen. went to 91% on RA lying in bed. reported shortness of breath. Per [employer] [facility], oxygen put back on at 2L. Pt SpO2 improved to 95%.
--- NOTE | 2024-10-26 16:47 | MHC.EDTECH ---
delay on EKG computers were not working could not see order. Nurse aware
--- OUTSIDE RECORDS SUMMARY | 2024-10-26 16:48 | XMS_ITS | Encounter Summary ---
Author Organization [facility] Address [address] [place] [address] Care Team Providers Care Delicatessen Manager Name Role Phone Marjorie Viveros MD Primary Care Provider [phone] Reason for Visit * Reason Onset Date Comments Fever 10/26/2024 Flu Symptoms 10/26/2024 Encounter Details Date Type Department Care Team (Late st Contact Info) Description 10/26/2024 Nurse T[address] Adult Medicine [facility] [address] [place] [address] Marjorie Viveros MD [address] [place] [address] Fever; Flu Symptoms Social History Tobacco Use Types Packs/Day Years Used Date Smoking Tobacco: Never Smokeless Tobacco: Never Alcohol Use Standard Drinks/Week Comments Yes 0 [...] for your loved ones. For example, child psychiatrist or elderly care for an older adult? No 07/27/2024 Education Answer Date Recorded Do you think completing more education or training, like finishing a GED, going to college, or learning a trade, would be helpful for you? No 07/27/2024 Employment and Income Answer Date Recor ded During the last four weeks, have you been actively looking for work? No 07/27/2024 Comments No Sex and Gender Information Value Date Recorded Sex Assigned at Not on file Legal Sex Female 6:30 AM EST Gender Identity Not on file Sexual Orientation Not on file documented as of this encounter Progress Notes * Yari Sen RN - 10/26/2024 10:12 AM EDT Reason for Disposition ? ? [1] MILD difficulty breathing (e.g., minimal/no SOB at rest, SOB with walking, pulse <100) AND [2] still present when not coughing Answer Assessment - Initial Assessment Questions 1. ONSET: When did the cough begin? 2 weeks ago she went a walk in clinic and was diagnosed with Influenza. She states this weekend shedeveloped a fever. 2. SEVERITY: How bad is the cough today? She rates the cough as 6/10 3. SPUTUM: Describe the color of your sputum (e.g., none, dry cough; clear, white, yellow, green) It is a dry cough 4. HEMOPTYSIS: Are you coughing up any blood? If Yes, ask: How much? (e.g., flecks, streaks, tablespoons, etc.) No hemoptysis 5. DIFFICULTY BREATHING: Are you having difficulty breathing? If Yes, ask: How bad is it? (e.g., mild, moderate, severe) - MILD: No SOB at rest, mild SOB with walking, speaks normally in sentences, can lie down, no retractions, pulse < 100. - MODERATE: SOB at rest, SOB with minimal exertion and prefers to sit, cannot lie down flat, speaksin phrases, mild retractions, audible wheezing, pulse 100 to 120. - SEVERE: Very SOB at rest, speaks in single words, struggling to breathe, sitting hunched forward,retractions, pulse > 120 She reports shortness of breath with activity 6. FEVER: Do you have a fever? If Yes, ask: What is your temperature, how was it measured, and when did it start? Yes. Her temp was 103 degrees last evening. She has been taking Tylenol 7. CARDIAC HISTORY: Do you have any history of heart disease? (e.g., heart attack, congestive heart failure) No 8. LUNG HISTORY: Do you have any history of lung disease? (e.g., pulmonary embolus, asthma, emphysema) No 9. PE RISK FACTORS: Do you have a history of blood clots? (or: recent major surgery, recent prolonged travel, bedridden) No PE risk factors 10. OTHER SYMPTOMS: Do you have any other symptoms? (e.g., runny nose, wheezing, chest pain) Runny nose and headache 11. : Is there any chance you are ? When was your last menstrual period? No. Pt is 74 12. TRAVEL: Have you traveled out of the country in the last month? (e.g., travel history, exposures) Pt was given a Covid test at the walk in clinic and was negative for Covid and RSV bu positive Influenza Protocols used: Cough - Acute Kmc-Xoatoxitmf-F-AH * Yari Sen RN - 10/26/2024 10:12 AM EDT An appointment was made for her to be seen in the office today at 1:00 pm with Lucila Garcia and she is in agreement with this plan. * Victoriano Whitfield - 10/26/2024 9:55 AM EDT Patient calling back looking to speak to nurse * Yari Sen RN - 10/26/2024 9:03 AM EDT I left pt a message to call the office at . * Victoriano Whitfield - 10/26/2024 8:52 AM EDT Patient call requires triage: Symptoms patient is presenting: Patient called stating that she has been sick for a few days , states that she is afraid it is pneumonia , would like to speak to nurse to get advice on what to do - states that flu symptoms have been going on for 2 weeks , states that a fever started this Saturday -103 degree fever How long has patient had these symptoms?: For ALL patients calling to schedule any appointment (routine, sick visit, follow up, consult, etc.) in the outpatient setting please ask the following questions: Do you have fever of higher than 101, sore throat with difficulty swallowing or severe shortness ofbreath? yes If YES to any of these above symptoms, send a message to triage and do not book. Red dot. If no, an audio or video visit should be booked. Have you had close contact with someone with Coronavirus in the last 14 days? no Have you traveled abroad? no Have you traveled recently to another state outside of [place], [place], [place], [place], [place], [place], [place]? no o If yes, did you quarantine for 14 days or have a negative covid test? no If yes to any of the above, patient is not to be scheduled in office until after 14 day quarantine or negative covid test. If pain or injury related was it due to an accident at work or from a motor vehicle accident? If yes, date of accident/Injury: No If yes, gather 3rd green party insurance information Third Democrat Information: not applicable PCP: Marjorie Viveros MD Payor: MEDICARE / Plan: MEDICARE PART A & B / Product Type: Medicare / documented in this encounter Plan of Treatment Upcoming Encounters Date Type Department Care Team (Late st Contact Info) Description 02/02/2025 11:00 AM EDT Office Visit Adult Medicine [address] [phone] Marjorie Viveros MD [address] [place] [address] 03/04/2025 10:30 AM EDT Appointment Radiology Department - [address] [phone] documented as of this encounter Visit Diagnoses Not on filedocumented in this encounter Additional Health Concerns Assessment Noted Time PHQ-9 Depression Total Score: 0 07/27/20 24 8:10 PM EST documented as of this encounter Care Teams Delicatessen Manager Relationship Specialty Start Date End Date Marjorie Viveros MD [address] [place] [address] PCP - General Internal Medicine 01/13/21 documented as of this encounter
--- OUTSIDE RECORDS SUMMARY | 2024-10-26 16:49 | XMS_ITS | Clinical Summary ---
Author Organization [facility] [address] [place] [address] Address [address] [place], [place] Phone Care Team Providers Care Vp Ad Products And Planning Name Role Phone Marjorie Viveros MD Primary Care Provider [phone] Allergies No known active allergies Medications cholecalciferol [...] Encounters Date Type Department Care Team Description 10/26/2024 1:00 PM EDT Office Visit Adult [address] [phone] Lucila Garcia PA Shortness of breath (Primary Dx); Tachycardia 10/26/2024 Nurse Triage [address] [phone] Marjorie Viveros MD Fever; Flu Symptoms 08/03/2024 11:00 AM EST Office Visit Adult Medicine [address] [phone] Lauryn Fernández PA Hypercholesterolemia (Primary Dx); Vitamin [...] 12 & older) Biv alent, COVID-19 05/17/2023,06/24/2022 [employer] Covid-19 Bivalent, Or iginal + Ba.1 (Non-US Trademark COMIRNATY Bivalent) 06/24/2022 [employer] SARS-CoV-2 COVID-19, mRNA, LNP-S, preservative free 05/23/2021 [...] Record ed Within the last 3 months, sonu w many times did you visit the [...] for your loved ones. For example, child protective investigator or elderly care for an older adult? [...] Sign Reading Time Taken Comments Blood Pressure 120/50 10/26/2024 1:07 PM EDT Pulse 115 10/26/2024 1:31 PM EDT Temperature 37.4 ??C (99.4 ??F) 10/26/2024 1:07 PM ED T Respiratory Rate 15 10/26/2024 1:07 PM EDT Oxygen Saturation 91% 10/26/2024 1:07 PM EDT Inhaled Oxygen Concentration - - Weight 69.9 kg (154 lb) 10/26/2024 1:07 PM EDT Height 165.1 cm (5' 5 ) 10/26/2024 1:07 PM EDT Body Mass Index 25.63 10/26/2024 1:07 PM EDT Plan of Treatment Upcoming Encounters Date Type Department Care Team (Late st Contact Info) Description 02/02/2025 11:00 AM EDT Office Visit Adult Medicine [facility] [address] [place] [address] Marjorie Viveros MD [address], [place] 03/04/2025 10:30 AM EDT Appointment Radiology Department - [address] [phone] Health Maintenance Due Date Last Done Comments [...] of bone density and structure, unspecified site HEPATITIS C SCREENING Routine 12/31/2013 from Last 3 Months or Most Recently Relevant to Health Maintenance Results * (ABNORMAL) Lipid panel with reflex to direct LDL (08/05/2024 9:17 AM EST) Cholesterol 207(H) 0 - 200 mg/dL LAB CHEMISTRY METHOD 08/05/2024 12:17 PM EST [facility] Triglycerides 193(H) 0 - 150 mg/dL LAB CHEMISTRY METHOD 08/05/2024 12:17 PM EST [facility] HDL 75 >=40 mg/dL LAB CHEMISTRY METHOD 08/05/2024 12:17 PM EST [facility] LDL Calculated 93 0 - 100 mg/dL LAB CHEMISTRY METHOD 08/05/2024 12:17 PM EST [facility] VLDL Cholesterol Rolando 38.6 mg/dL LAB CHEMISTRY METHOD 08/05/2024 12:17 PM EST [facility] Non HDL Chol. (LDL+VLDL) 132 <145 mg/dL LAB CHEMISTRY METHOD 08/05/2024 12:17 PM EST [facility] Chol/HDL Ratio 2.8 0.0 - 4.4 LAB CHEMISTRY METHOD 08/05/2024 12:17 PM EST [facility] Blood Venous blood specimen / Unknown Venipuncture / Unknown 08/05/2024 9:17 AM EST 08/05/2024 9:17 AM EST us Lauryn ORTEGA LAB BLOOD ORDERABLES Final Re sult [facility] [address] [place] [address], * (ABNORMAL) CBC auto differential (08/05/2024 9:17 AM EST) Pathologist [facility] WBC 4.6(L) 4.8 - 10.8 K/mcL LAB HEMETOLOGY METHOD 08/05/2024 10:09 AM [facility] RBC 4.30 3.80 - 4.80 M/mcL LAB HEMETOLOGY METHOD 08/05/2024 10:09 AM [facility] Hemoglobin 13.7 11.5 - 16.0 g/dL LAB HEMETOLOGY METHOD 08/05/2024 10:09 AM [facility] Hematocrit 40.1 35.0 - 47.0 % LAB HEMETOLOGY METHOD 08/05/2024 10:09 AM [facility] MCV 94.4 79.0 - 98.0 FL LAB HEMETOLOGY METHOD 08/05/2024 10:09 AM [facility] MCH 32.2(H) 27.0 - 32.0 pcg LAB HEMETOLOGY METHOD 08/05/2024 10:09 AM [facility] MCHC 34.2 32.0 - 37.0 g/dL LAB HEMETOLOGY METHOD 08/05/2024 10:09 AM [facility] RDW 12.5 11.0 - 15.0 % LAB HEMETOLOGY METHOD 08/05/2024 10:09 AM [facility] Platelets 214 130 - 400 K/mcL LAB HEMETOLOGY METHOD 08/05/2024 10:09 AM [facility] MPV 10.5 7.0 - 11.0 FL LAB HEMETOLOGY METHOD 08/05/2024 10:09 AM [facility] NRBC 0.0 <1.0 % LAB HEMETOLOGY METHOD 08/05/2024 10:09 AM [facility] NRBC Absolute 0.00 <0.10 K/mcL LAB HEMETOLOGY METHOD 08/05/2024 10:09 AM [facility] Neutrophils Relative 60.5 % LAB HEMETOLOGY METHOD 08/05/2024 10:09 AM [facility] Lymphocytes Relative 30.6 % LAB HEMETOLOGY METHOD 08/05/2024 10:09 AM [facility] Monocytes Relative 6.6 % LAB HEMETOLOGY METHOD 08/05/2024 10:09 AM [facility] Eosinophils Relative 1.7 % LAB HEMETOLOGY METHOD 08/05/2024 10:09 AM [facility] Basophils Relative 0.2 % LAB HEMETOLOGY METHOD 08/05/2024 10:09 AM [facility] Immature Granulocytes Relative 0.4 % LAB HEMETOLOGY METHOD 08/05/2024 10:09 AM [facility] Neutrophils Absolute 2.77 1.50 - 7.00 K/mcL LAB HEMETOLOGY METHOD 08/05/2024 10:09 AM [facility] Lymphocytes Absolute 1.40 1.00 - 5.00 K/mcL LAB HEMETOLOGY METHOD 08/05/2024 10:09 AM [facility] Monocytes Absolute 0.30 0.20 - 1.00 K/mcL LAB HEMETOLOGY METHOD 08/05/2024 10:09 AM [facility] Eosinophils Absolute 0.08 0.00 - 0.50 K/mcL LAB HEMETOLOGY METHOD 08/05/2024 10:09 AM [facility] Basophils Absolute 0.01 0.00 - 0.20 K/mcL LAB HEMETOLOGY METHOD 08/05/2024 10:09 AM [facility] Immature Granulocytes Absolute 0.02 0.00 - 0.03 K/mcL LAB HEMETOLOGY METHOD 08/05/2024 10:09 AM [facility] Blood Venous blood specimen / Unknown Venipuncture / Unknown 08/05/2024 9:17 AM EST 08/05/2024 9:17 AM EST Lauryn ORTEGA LAB BLOOD ORDERABLES Final Re sult [facility] [address] [place] [address], [place] [phone] * Vitamin D 25 hydroxy (08/05/2024 9:17 AM EST) Vit D, 25-Hydroxy 36.6 30.0 - 80.0 ng/mL LAB CHEMISTRY METHOD 08/05/2024 12:26 PM [facility] Blood Venous blood specimen / Unknown Venipuncture / Unknown 08/05/2024 9:17 AM EST 08/05/2024 9:17 AM EST Lauryn ORTEGA LAB BLOOD ORDERABLES Final Re sult Performing Organization Address City/[facility]/ZIP Co de Phone Number [facility] [address] [place] [address], [place] [phone] * Comprehensive metabolic panel (08/05/2024 9:17 AM EST) [facility] Sodium 140 133 - 145 mmol/L LAB CHEMISTRY METHOD 08/05/2024 12:17 PM [facility] Potassium 4.2 3.5 - 5.5 mmol/L LAB CHEMISTRY METHOD 08/05/2024 12:17 PM [facility] Chloride 106 96 - 110 mmol/L LAB CHEMISTRY METHOD 08/05/2024 12:17 PM [facility] CO2 27 21 - 32 mmol/L LAB CHEMISTRY METHOD 08/05/2024 12:17 PM [facility] Anion Gap 7 3 - 11 LAB CHEMISTRY METHOD 08/05/2024 12:17 PM [facility] Glucose 96 70 - 100 mg/dL LAB CHEMISTRY METHOD 08/05/2024 12:17 PM [facility] BUN 9 5 - 25 mg/dL LAB CHEMISTRY METHOD 08/05/2024 12:17 PM [facility] Creatinine 0.88 0.50 - 1.10 mg/dL LAB CHEMISTRY METHOD 08/05/2024 12:17 PM [facility] eGFR 69 >=60 mL/min/1. 73m2 LAB CHEMISTRY METHOD 08/05/2024 12:17 PM [facility] Comment:Calculation based on the??Chronic Kidney Disease Epidemiology Collaboration (CKD-EPI) equation refit??without adjustment for race. BUN/Creatinine Ratio 10.2 LAB CHEMISTRY METHOD 08/05/2024 12:17 PM [facility] Calcium 9.8 8.5 - 10.5 mg/dL LAB CHEMISTRY METHOD 08/05/2024 12:17 PM [facility] AST (SGOT) 20 10 - 42 unit/L LAB CHEMISTRY METHOD 08/05/2024 12:17 PM [facility] ALT (SGPT) 28 10 - 60 unit/L LAB CHEMISTRY METHOD 08/05/2024 12:17 PM [facility] Alkaline Phosphatase 76 42 - 121 unit/L LAB CHEMISTRY METHOD 08/05/2024 12:17 PM [facility] Total Protein 7.2 6.0 - 8.0 g/dL LAB CHEMISTRY METHOD 08/05/2024 12:17 PM [facility] Albumin 4.1 3.2 - 5.0 g/dL LAB CHEMISTRY METHOD 08/05/2024 12:17 PM [facility] Total Bilirubin 0.8 0.0 - 1.4 mg/dL LAB CHEMISTRY METHOD 08/05/2024 12:17 PM [facility] Blood Venous blood specimen / Unknown Venipuncture / Unknown 08/05/2024 9:17 AM EST 08/05/2024 9:17 AM EST us Lauryn ORTEGA LAB BLOOD ORDERABLES Final Re sult [facility] [address] [place] [address], * SCREENING MAMMOGRAPHY BI 2-VIEW BREAST INC [...] risk category Breast cancer risk not assessed Marjorie Viveros MD IMG XR PROCEDURES Final [...] (World Health Organization Fracture Risk Assessment) [facility] Department of Internal Medicine recommends using National [...] (World Health Organization Fracture Risk Assessment) [facility] Department of Internal Medicine recommendsusing National Osteoporosis [...] Resu lt * Hepatitis C Screening (12/31/2013) [facility] Hepatitis C Screening abstracted Historical Provider MD HEALTH MAINTENANCE Final Result from Last 3 Months or Most Recently Relevant to Health Maintenance Insurance MEDICARE [employer] Care Teams Vp Ad Products And Planning Relationship Specialty Start Date End Date Marjorie Viveros MD [address] [place] [id number] PCP - General Internal Medicine 01/13/21
--- OUTSIDE RECORDS SUMMARY | 2024-10-26 16:49 | XMS_ITS | Encounter Summary ---
Author Organization [facility] Address [address] [place] [address] Care Team Providers Care Automotive Metalsmith Name Role Phone Marjorie Viveros MD Primary Care Provider [phone] Reason for Visit * Reason Comments Cough Fever Encounter Details Date Type Department Care Team ([facility] Contact Info) Description 10/26/2024 1:00 PM EDT Office Visit Adult Medicine [facility] [address], [place] [phone] Lucila Garcia PA [address], [place] Shortness of breath (Primary Dx); Tachycardia Social History Tobacco Use Types Packs/Day Years [...] care for your loved ones. For example, early childhood special educator or elderly care for an older adult? [...] on file documented as of this encounter Last Filed Vital Signs Vital Sign Reading [...] Mass Index 25.63 10/26/2024 1:07 PM EDT documented in this encounter Progress Notes * SHANNON Pollard - 10/26/2024 1:00 PM EDT CHIEF COMPLAINT: Cough and Fever IDENTIFIER: Viji Valencia is a 74 y.o. old female. HPI: Patient is a 74-year-old female who presents to the office today complaining of fever, dry cough and SOB. She went to a walk-in clinic 2 weeks ago and was diagnosed with influenza. COVID-19 and RSV swabs were negative. She was given a short prednisone taper and Tessalon Perles without help. This past weekend she developed a fever and shortness of breath. There has been sweats and chills. Last night her fever was 103 ??F. She has been taking Tylenol, last dose of Tylenol was 4 AM. She is not a smoker. She does not have a history of asthma or COPD. ROS: GENERAL: See HPI RESPIRATORY: See HPI CARDIOVASCULAR: No chest pain, leg swelling or palpitations MUSCULOSKELETAL: No myalgias NEURO: No persistent headache PAST MEDICAL HISTORY: Patient Active Problem List Diagnosis Date Noted Hypercholesterolemia 06/29/2024 Osteopenia 06/29/2024 Vitamin D deficiency 06/29/2024 Overweight (BMI 25.0-29.9) 06/29/2024 Past Surgical History: Procedure Laterality Date COLONOSCOPY 04/01/2014 PROCEDURE: HISTORICAL COLONOSCOPY OTHER SURGICAL HISTORY Bilateral 12/2021 PROCEDURE: MAMMOGRAM, SCREENING, BOTH BREASTS TONSILLECTOMY PROCEDURE: HISTORICAL TONSILLECTOMY TUBAL LIGATION PROCEDURE: HISTORICAL TUBAL LIGATION SOCIAL HISTORY: Social History Tobacco Use Smoking status: Never Smokeless tobacco: Never Substance Use Topics Alcohol use: Yes FAMILY HISTORY: Family History Problem Relation Name Age of Onset Coronary artery disease Mother age 70 ca breast Breast cancer Mother age 70 70.00 Breast cancer Aunt mat 44 Colon cancer Neg Hx Ovarian cancer Neg Hx Uterine cancer Neg Hx MEDICATIONS DISCONTINUED/REORDERED: There are no discontinued medications. ACTIVE MEDICATIONS: Outpatient Medications Marked as Taking for the 10/26/24 encounter (Office Visit) with SHANNON Pollard Medication Sig Dispense Refill atorvastatin (LIPITOR) 20 mg tablet Take 1 tablet (20 mg total) by mouth at bedtime. 90 each 1 calcium carbonate-vitamin D 600 mg-10 mcg (400 unit) per tablet Take 1 tablet by mouth 2 (two) times a day. cholecalciferol (VITAMIN D-3) 50 mcg (2,000 unit) tablet Take 1 capsule (1,000 Units total) by mouth 1 (one) time each day. ALLERGIES: No Known Allergies PHYSICAL EXAM: Blood pressure 120/50, pulse (!) 115, temperature 37.4 ??C (99.4 ??F), temperature source Temporal,resp. rate 15, height 1.651 m (65 ), weight 69.9 kg (154 lb), SpO2 91%. Body mass index is 25.63 kg/m??. BMI is greater than 25.0 (above the normal range) - see Plan APPEARANCE: Alert and in distress EYES: PERRLA, conjunctiva and sclera normal EARS: External ears normal. Canals clear. TMs normal NOSE/SINUS: Nares normal. Septum midline. Mucosa normal. No drainage or sinus tenderness THROAT: No erythema or exudates NECK: Neck supple, no adenopathy HEART: Tachycardic with normal S1 and S2, no murmurs, no gallops LUNG: Clear to auscultation, tachypneic EXTREMITIES: No edema. No calf tenderness NEURO: Awake, alert LABS: Lab Results Component Value Date NA 140 08/05/2024 K 4.2 08/05/2024 CL 106 08/05/2024 CO2 27 08/05/2024 GLUCOSE 96 08/05/2024 BUN 9 08/05/2024 CREATININE 0.88 08/05/2024 CALCIUM 9.8 08/05/2024 PROT 7.2 08/05/2024 ALBUMIN 4.1 08/05/2024 BILITOT 0.8 08/05/2024 AST 20 08/05/2024 ALT 28 08/05/2024 ALKPHOS 76 08/05/2024 EGFR 69 08/05/2024 IMAGING: Ordered IMPRESSION/PLAN: 1. Shortness of breath 2. Tachycardia Medication and lab orders: No orders of the defined types were placed in this encounter. Other orders: None 1/2. She has been sick for 2 days but developed fever and shortness of breath over the weekend. Lungs are clear to auscultation however she is tachypneic. Additionally, she is tachycardic and hypoxic, oxygen saturation is 91%. She does not have known asthma or COPD. Discussed with Dr. Longoria. Advised patient that her vital signs are unstable. Recommend that she go to [facility] ER via ambulance for further evaluation and management. Concerned for pneumonia, PE. Advised the patient to call me if any problems. Patient understands the plan. Patient is in agreement with the plan. Today's documentation was made using voice recognition software.This note may contain grammatical errors secondary to this software. Lucila Garcia PA-C documented in this encounter Plan of Treatment Upcoming Encounters Date Type Department Care Team (Late st Contact Info) Description 02/02/2025 11:00 AM EDT Office Visit Adult Medicine [address] [phone] Marjorie Viveros MD [address] [place] [address] 03/04/2025 10:30 AM EDT Appointment Radiology Department - [address] [phone] documented as of this encounter Visit Diagnoses Diagnosis Shortness of breath- Primary Tachycardia Unspecified tachycardia Encounter for screening mammogram for breast cancer documented in this encounter Additional Health Concerns Assessment Noted Time PHQ-9 Depression Total Score: 0 07/27/20 24 8:10 PM EST documented as of this encounter Care Teams Automotive Metalsmith Relationship Specialty Start Date End Date Marjorie Viveros MD [address] [place] [address] PCP - General Internal Medicine 01/13/21 documented as of this encounter
--- NOTE | 2024-10-26 17:09 | MHC.EDTECH ---
ambulation trial patient oxygen level at resting state was 92 with no oxygen. During ambulation trial patient oxygen dropped to 87 on room air. Nurse is aware.
--- NOTE | 2024-10-26 17:15 | PC.NURSE ---
tech ambulated with pt to the bathroom on room air. she became hypoxic to 87%. Pt brought back to room and placed back on 2l oxygen
--- NOTE | 2024-10-26 17:40 | PHA.MEDREC ---
Addendum entered by Brie Logan RPh 10/26/24 18:11: [facility] REVIEWED Original Note: Pharmacy Consult ? Medication Reconciliation Pharmacy has completed the medication reconciliation. Spoke with patient and she was able to confirm her medications. Patient confirmed she last took her medications yesterday.
[2024-10-26 17:48] LABS: Troponin-I High Sensitivity 6.9 ng/L (<3.5-17.0)
--- NOTE | 2024-10-26 18:32 | P.HPHOSP_ITS ---
History of Present Illness Date of Service: 10/26/24 Chief Complaint: Shortness of breath and cough 74-year-old female with past medical history significant for hyperlipidemia recently diagnosed to have influenza A infection on October 16 and treated with prednisone and cough medication however due to persistent shortness of breath and fever patient went to see PCP where she was noted to be hypoxic with finger oximetry 89% on room air therefore referred to [facility] emergency room, patient complaining of fever up to 103 48 hours ago associated with intractable dry cough and shortness of breath worse with exertion patient denies associated lightheadedness dizziness, no recent history of travel no other family member with similar symptoms, denies chest pain, no palpitations had headache that has now resolved has been taking Tylenol at home, workup in the ED chest x-ray showed right lower lobe pneumonia, WBC 11.5, hematocrit 36.9 stable electrolytes and kidney function, blood sugar 131, patient treated in the emergency room with IV ceftriaxone and IV azithromycin,, patient was ambulated but she was noted to have profound tachypnea oxygenation dropped to 87% on room air therefore patient is being admitted to [facility] with acute hypoxic respiratory failure due to influenza a and pneumonia. Review of Systems 2 Review of Systems: General no headache no dizziness ,fever chills resolved. CVS no chest pain, no palpitation. Respiratory intractable cough Gastrointestinal no nausea no vomiting, no abdominal pain no urgency no frequency All other system reviewed and are negative [facility] Social History Alcohol intake: current Patient Tobacco Use Status: Never used Tobacco Smoked in Last 30 Days: No Use of substances other than those prescribed or required for medical reasons: No Advance Directives: No Advance Directives Information Provided: Yes Meds Allergies Allergy/AdvReac Type Severity Reaction Status Date / Time No Known Allergies Allergy Verified 10/26/24 14:25 Active Medications: Current Medications Acetaminophen (Acetaminophen 325 Mg Tablet) 650 mg PO Q6H PRN PRN Reason: Pain, Mild 1-3,fever,headache Atorvastatin Calcium (Atorvastatin Calcium 20 Mg Tablet) 20 mg PO BEDTIME NADIA Calcium Carbonate (Calcium Carbonate 750 Mg Tab.Chew) 750 mg PO Q4H PRN PRN Reason: Heartburn Enoxaparin Sodium (Enoxaparin Sodium 40 Mg/0.4 Ml Syringe) 40 mg SUBCUT Q24H NAD[facility] Magnesium Hydroxide (Milk Of Magnesia 30 Ml Oral.Susp) 30 ml PO DAILY PRN PRN Reason: Constipation Melatonin (Melatonin 3 Mg Tablet) 6 mg PO BEDTIME PRN PRN Reason: Insomnia Ondansetron HCl (Ondansetron Hcl 4 Mg/2 Ml Vial) 4 mg IVPUSH Q8H PRN PRN Reason: Nausea and Vomiting Polyethylene Glycol (Polyethylene Glycol 3350 17 Gm Powd.Pack) 17 gm PO DAILY PRN PRN Reason: Constipation Sodium Chloride (0.9 % Sodium Chloride Flush 3 Ml Syringe) 3 ml IVFLUSH QSHIFT [facility] Home Medications ?Medication ?Instructions ?Recorded ?Confirmed ?Last Taken ?Type atorvastatin 20 mg tablet 20 mg PO BEDTIME 10/16/24 10/26/24 10/25/24 History calcium 600 mg (as 1 tab PO DAILY 10/26/24 10/26/24 10/25/24 History carbonate)-vitamin D3 5 mcg (200 unit) tablet Physical Exam 2 Vital Signs and Narrative: Vital Signs: Last Vital Signs Temp 98.3 F 10/26/24 17:56 Pulse 80 10/26/24 17:56 Resp 16 10/26/24 17:56 BP 133/70 10/26/24 17:56 Pulse Ox 96 10/26/24 17:56 O2 Del Method Nasal Cannula 10/26/24 17:56 O2 Flow Rate 2 10/26/24 17:56 Oxygen Flow Rate 2 10/26/24 15:07 BMI result Body Mass Index 25.1 Const: Other: General in no acute distress, intermittent coughing. Moist mucous membranes Neck no JVD. CVS regular rate rhythm, Respiratory lungs rhonchi, no respiratory distress, no wheeze Gastrointestinal abdomen soft, non tender, bowel sounds audible Extremities no edema. Neuro non focal Skin no rash Psych appropriate affect Results Labs 10/26/24 14:46 10/26/24 14:46 Labs: Laboratory Results - last 24 hr 10/26/24 14:46 MCV 88.9 MCH 31.6 MCHC 35.5 H RDW 12.8 Plt Count 252 MPV 9.3 L Immature Gran % (Auto) 0.8 H Neut % (Auto) 86.8 H Lymph % (Auto) 4.9 L [place] % (Auto) 7.3 Eos % (Auto) 0.1 Baso % (Auto) 0.1 Lymph # (Auto) 0.6 L [place] # (Auto) 0.8 Eos # (Auto) 0.0 Baso # (Auto) 0.0 Abs Immat Gran (auto) 0.09 H Absolute Neuts (auto) 10.0 H Absolute Nucleated RBC 0.000 Nucleated RBC % (auto) 0.0 Anion Gap 15 Estim Creat Clear Calc 75.4 Estimated GFR > 60 Random Glucose 131 H Calcium 8.8 Total Bilirubin 1.2 H AST 22 ALT 19 Alkaline Phosphatase 75 Total Protein 7.6 Albumin 3.6 Influenza Type A (PCR) NEGATIVE Influenza Type B (PCR) NEGATIVE RSV RNA Qual (PCR) NEGATIVE SARS-CoV-2 RNA (RT-PCR) NEGATIVE Imaging Radiologist's Impressions: Impressions Chest X-Ray 10/26/24 14:26 IMPRESSION: Right lower lobe pneumonia. Follow-up is recommended to document resolution. Electronically signed by: Sandro Mcguire MD 10/26/2024 03:20 PM EDT RP Assessment and Plan (1) Hypoxia: Status: Acute (2) Right lower lobe pneumonia: Status: Acute (3) Acute viral syndrome: Status: Acute Plan 74-year-old female with past medical history significant for hyperlipidemia recently diagnosed to have influenza a infection on October 16 and treated with prednisone and cough medication, but due to progressive symptoms of shortness of breath cough and fever patient went to see PCP and noted of hypoxia therefore referred to ED and being admitted to [facility] due to acute hypoxic respiratory failure. Acute hypoxic respiratory failure due to recent influenza A infection/pneumonia Admitted to medical floor/no sepsis/WBC less than 12,000 IV ceftriaxone and IV azithromycin started on 10/26 Cough medication analgesics Wean O2 as tolerated not on home oxygen Outpatient follow-up on chest x-ray to document resolution Hyperlipidemia continue statin Full code Lovenox In my clinical judgment patient require 2 night inpatient hospitalization for management of acute hypoxic respiratory failure requiring IV antibiotic. Quality Stroke Does the patient have a stroke diagnosis?: No VTE Prior VTE?: No VTE Risk Level:: Medical - moderate - high VTE Device Contraindication: Treatment Not Indicated VTE Drug Contraindication: N/A - Med Ordered
[2024-10-26] MEDS: Enoxaparin Sodium 40 MG/0.4 ML SYRINGE SUBCUT (21:28)
[2024-10-26] MEDS: Atorvastatin Calcium 20 MG TABLET PO (21:28)
[2024-10-26] MEDS: guaiFENesin DM 200/20/10 ML 10 ML SYRUP PO (21:28)
[2024-10-27] MEDS: guaiFEN/Codeine SF 200/20/10ML 10 ML LIQUID PO ×2 (01:09→10:56)
[2024-10-27] MEDS: Acetaminophen 325 MG TABLET 650 MG PO ×2 (01:09→18:46)
[2024-10-27 01:20] VITALS: BP 115/58; PULSE 82; RESP 16; O2SAT 98
--- NOTE | 2024-10-27 01:32 | PC.NURSE ---
pt reports CASTELLON and frequent cough, PRN given per oct.
[2024-10-27 04:09] VITALS: BP 114/60; PULSE 70; RESP 15; TEMP 36.5; O2SAT 98
[2024-10-27] MEDS: 0.9 % Sodium Chloride Flush 3 ML SYRINGE IVFLUSH ×3 (07:57→21:40)
[2024-10-27] MEDS: guaiFENesin DM 200/20/10 ML 10 ML SYRUP PO ×3 (08:00→21:39)
--- NOTE | 2024-10-27 08:05 | PC.NURSE ---
Pt alert and oriented, breathing even and unlabored at rest, frequent coughing. Remains on 2L O2 NC. Report she was able to eat full breakfast this morning and overall is feeling better. No new complaints.
--- NOTE | 2024-10-27 09:08 | P.PNIM_ITS ---
Subjective Subjective Date of Service: 10/27/24 Interval History: States her breathing is better since admission. On 2 L supplemental oxygen. Is ambulating without assistance Review of Systems General no headache no dizziness ,fever chills resolved. CVS no chest pain, no palpitation. Respiratory intractable cough Gastrointestinal no nausea no vomiting, no abdominal pain no urgency no frequency All other system reviewed and are negative Physical Exam 2 Vital Signs: Vital Signs: Last Vital Signs Temp 97.7 F 10/27/24 04:09 Pulse 70 10/27/24 04:09 Resp 15 10/27/24 04:09 BP 114/60 10/27/24 04:09 Pulse Ox 98 10/27/24 04:09 O2 Del Method Nasal Cannula 10/27/24 04:09 O2 Flow Rate 2 10/27/24 04:09 Oxygen Flow Rate 2 10/26/24 15:07 BMI result Body Mass Index 25.1 Const: Other: General in no acute distress, intermittent coughing. Moist mucous membranes Neck no JVD. CVS regular rate rhythm, Respiratory lungs rhonchi, no respiratory distress, no wheeze Gastrointestinal abdomen soft, non tender, bowel sounds audible Extremities no edema. Neuro non focal Skin no rash Psych appropriate affect Objective Data Active Medications Acetaminophen (Acetaminophen 325 Mg Tablet) 650 mg PO Q6H PRN PRN Reason: Pain, Mild 1-3,fever,headache Last Admin: 10/27/24 01:09 Dose: 650 mg Documented By: LURDES Atorvastatin Calcium (Atorvastatin Calcium 20 Mg Tablet) 20 mg PO BEDTIME [facility] Last Admin: 10/26/24 21:28 Dose: 20 mg Documented By: REY Calcium Carbonate (Calcium Carbonate 750 Mg Tab.Chew) 750 mg PO Q4H PRN PRN Reason: Heartburn Ceftriaxone Sodium (Ceftriaxone Sodium 1 Gm Vial) 1 gm IVPUSH Q24H [facility] Enoxaparin Sodium (Enoxaparin Sodium 40 Mg/0.4 Ml Syringe) 40 mg SUBCUT Q24H [facility] Last Admin: 10/26/24 21:28 Dose: 40 mg Documented By: REY Guaifenesin/Codeine Phosphate (Guaifen/Codeine Sf 200/20/10ml 10 Ml Liquid) 10 ml PO Q6H PRN PRN Reason: Cough Last Admin: 10/27/24 01:09 Dose: 10 ml Documented By: LURDES Guaifenesin/Dextromethorphan (Guaifenesin Dm 200/20/10 Ml 10 Ml Syrup) 10 ml PO TID [facility] Last Admin: 10/27/24 08:00 Dose: 10 ml Documented By: MIRIAM Azithromycin 500 mg/ Sodium (Chloride) 250 mls @ 125 mls/hr IV Q24H [facility] Magnesium Hydroxide (Milk Of Magnesia 30 Ml Oral.Susp) 30 ml PO DAILY PRN PRN Reason: Constipation Melatonin (Melatonin 3 Mg Tablet) 6 mg PO BEDTIME PRN PRN Reason: Insomnia Ondansetron HCl (Ondansetron Hcl 4 Mg/2 Ml Vial) 4 mg IVPUSH Q8H PRN PRN Reason: Nausea and Vomiting Polyethylene Glycol (Polyethylene Glycol 3350 17 Gm Powd.Pack) 17 gm PO DAILY PRN PRN Reason: Constipation Sodium Chloride (0.9 % Sodium Chloride Flush 3 Ml Syringe) 3 ml IVFLUSH QSHIFT [facility] Last Admin: 10/27/24 07:57 Dose: 3 ml Documented By: MIRIAM Labs 10/26/24 14:46 10/26/24 14:46 Labs: Laboratory Results - last 24 hr 10/26/24 14:46 MCV 88.9 MCH 31.6 MCHC 35.5 H RDW 12.8 Plt Count 252 MPV 9.3 L Immature Gran % (Auto) 0.8 H Neut % (Auto) 86.8 H Lymph % (Auto) 4.9 L [place] % (Auto) 7.3 Eos % (Auto) 0.1 Baso % (Auto) 0.1 Lymph # (Auto) 0.6 L [place] # (Auto) 0.8 Eos # (Auto) 0.0 Baso # (Auto) 0.0 Abs Immat Gran (auto) 0.09 H Absolute Neuts (auto) 10.0 H Absolute Nucleated RBC 0.000 Nucleated RBC % (auto) 0.0 Anion Gap 15 Estim Creat Clear Calc 75.4 Estimated GFR > 60 Random Glucose 131 H Calcium 8.8 Total Bilirubin 1.2 H AST 22 ALT 19 Alkaline Phosphatase 75 Total Protein 7.6 Albumin 3.6 Influenza Type A (PCR) NEGATIVE Influenza Type B (PCR) NEGATIVE RSV RNA Qual (PCR) NEGATIVE SARS-CoV-2 RNA (RT-PCR) NEGATIVE Assessment and Plan (1) Hypoxia: Status: Acute (2) Right lower lobe pneumonia: Status: Acute Plan 74-year-old female with past medical history significant for hyperlipidemia recently diagnosed to have influenza a infection on October 16 and treated with prednisone and cough medication, but due to progressive symptoms of shortness of breath cough and fever patient went to see PCP and noted of hypoxia therefore referred to ED and being admitted to [facility] due to acute hypoxic respiratory failure. Acute hypoxic respiratory failure due to recent influenza A infection, now with superimposed bacterial pneumonia Admitted to medical floor/no sepsis/WBC less than 12,000 IV ceftriaxone and IV azithromycin started on 10/26 Cough medication analgesics Wean O2 as tolerated not on home oxygen Hyperlipidemia continue statin Full code Lovenox Reason for continued hospitalization: Supplemental oxygen Quality Stroke Does the patient have a stroke diagnosis?: No VTE Prior VTE?: No VTE Risk Level:: Medical - moderate - high VTE Device Contraindication: Treatment Not Indicated VTE Drug Contraindication: N/A - Med Ordered
[2024-10-27 09:13] VITALS: BP 115/64; PULSE 80; RESP 20; O2SAT 94
[2024-10-27 14:02] VITALS: BP 116/71; PULSE 84; RESP 20; TEMP 36.6; O2SAT 96
--- NOTE | 2024-10-27 14:03 | MHC.CM.PN ---
PT IS INDEPENDENT LIVES WITH S/O HAD NO SERVICES LIVES WITH S/O DC PLAN HOME NO SERVIES
[2024-10-27 14:48] VITALS: BP 134/62; PULSE 83; RESP 18; TEMP 37.2; O2SAT 91
[2024-10-27] MEDS: cefTRIAXone sodium 1 GM VIAL IVPUSH (15:23)
[2024-10-27] MEDS: Azithromycin 500 MG in 0.9 % Sodium Chloride 250 ML 125 MG IV (15:24)
[2024-10-27] MEDS: Enoxaparin Sodium 40 MG/0.4 ML SYRINGE SUBCUT (18:46)
[2024-10-27 19:31] VITALS: BP 135/60; PULSE 84; RESP 18; TEMP 36.7; O2SAT 95
[2024-10-27] MEDS: Atorvastatin Calcium 20 MG TABLET PO (21:39)
[2024-10-28 03:33] VITALS: BP 116/66; PULSE 69; RESP 18; TEMP 36.6; O2SAT 97
[2024-10-28] MEDS: Acetaminophen 325 MG TABLET 650 MG PO (05:09)
[2024-10-28 07:56] VITALS: BP 131/62; PULSE 65; RESP 16; TEMP 36.4; O2SAT 96
[2024-10-28] MEDS: guaiFENesin DM 200/20/10 ML 10 ML SYRUP PO ×3 (08:19→20:25)
[2024-10-28] MEDS: 0.9 % Sodium Chloride Flush 3 ML SYRINGE IVFLUSH ×3 (08:19→20:26)
--- NOTE | 2024-10-28 10:52 | MHC.CM.PN ---
Per MD rounds Patient may be ready to discharge tomorrow. She is being weaned from oxygen. DP Home self care private transport.
--- NOTE | 2024-10-28 11:20 | P.PNIM_ITS ---
Subjective Subjective Date of Service: 10/28/24 Interval History: States her breathing is better since admission. Still on 1- 2 L supplemental oxygen. Is ambulating without assistance Review of Systems General no headache no dizziness ,fever chills resolved. CVS no chest pain, no palpitation. Respiratory intractable cough Gastrointestinal no nausea no vomiting, no abdominal pain no urgency no frequency All other system reviewed and are negative Physical Exam 2 Vital Signs: Vital Signs: Last Vital Signs Temp 97.6 F 10/28/24 07:56 Pulse 65 10/28/24 07:56 Resp 16 10/28/24 07:56 BP 131/62 10/28/24 07:56 Pulse Ox 96 10/28/24 07:56 O2 Del Method Nasal Cannula 10/28/24 07:56 O2 Flow Rate 2 10/28/24 07:56 Oxygen Flow Rate 2 10/26/24 15:07 BMI result Body Mass Index 25.1 Const: Other: General in no acute distress, intermittent coughing. Moist mucous membranes Neck no JVD. CVS regular rate rhythm, Respiratory lungs rhonchi, no respiratory distress, no wheeze Gastrointestinal abdomen soft, non tender, bowel sounds audible Extremities no edema. Neuro non focal Skin no rash Psych appropriate affect Objective Data Active Medications Acetaminophen (Acetaminophen 325 Mg Tablet) 650 mg PO Q6H PRN PRN Reason: Pain, Mild 1-3,fever,headache Last Admin: 10/28/24 05:09 Dose: 650 mg Documented By: FRANSICO Atorvastatin Calcium (Atorvastatin Calcium 20 Mg Tablet) 20 mg PO BEDTIME COUNT INCLUDES [facility] Last Admin: 10/27/24 21:39 Dose: 20 mg Documented By: FRANSICO Calcium Carbonate (Calcium Carbonate 750 Mg Tab.Chew) 750 mg PO Q4H PRN PRN Reason: Heartburn Ceftriaxone Sodium (Ceftriaxone Sodium 1 Gm Vial) 1 gm IVPUSH Q24H COUNT INCLUDES [facility] Last Admin: 10/27/24 15:23 Dose: 1 gm Documented By: ALEKSANDER Enoxaparin Sodium (Enoxaparin Sodium 40 Mg/0.4 Ml Syringe) 40 mg SUBCUT Q24H COUNT [facility]CLUDES [facility] Last Admin: 10/27/24 18:46 Dose: 40 mg Documented By: ALEKSANDER Guaifenesin/Codeine Phosphate (Guaifen/Codeine Sf 200/20/10ml 10 Ml Liquid) 10 ml PO Q6H PRN PRN Reason: Cough Last Admin: 10/27/24 10:56 Dose: 10 ml Documented By: MIRIAM Guaifenesin/Dextromethorphan (Guaifenesin Dm 200/20/10 Ml 10 Ml Syrup) 10 ml PO TID COUNT INCLUDES [facility] Last Admin: 10/28/24 08:19 Dose: 10 ml Documented By: RHONA Azithromycin 500 mg/ Sodium (Chloride) 250 mls @ 125 mls/hr IV Q24H [facility]CLUD[facility] Last Infusion: 10/27/24 17:59 Dose: Infused Documented By: ALEKSANDER Magnesium Hydroxide (Milk Of Magnesia 30 Ml Oral.Susp) 30 ml PO DAILY PRN PRN Reason: Constipation Melatonin (Melatonin 3 Mg Tablet) 6 mg PO BEDTIME PRN PRN Reason: Insomnia Ondansetron HCl (Ondansetron Hcl 4 Mg/2 Ml Vial) 4 mg IVPUSH Q8H PRN PRN Reason: Nausea and Vomiting Polyethylene Glycol (Polyethylene Glycol 3350 17 Gm Powd.Pack) 17 gm PO DAILY PRN PRN Reason: Constipation Sodium Chloride (0.9 % Sodium Chloride Flush 3 Ml Syringe) 3 ml IVFLUSH QSHIFT COUNT [facility]CLUDES [facility] Last Admin: 10/28/24 08:19 Dose: 3 ml Documented By: RHONA Labs 10/26/24 14:46 10/26/24 14:46 Assessment and Plan (1) Right lower lobe pneumonia: Status: Acute (2) Hypoxia: Status: Acute Plan 74-year-old female with past medical history significant for hyperlipidemia recently diagnosed to have influenza a infection on October 16 and treated with prednisone and cough medication, but due to progressive symptoms of shortness of breath cough and fever patient went to see PCP and noted of hypoxia therefore referred to ED and being admitted to [facility] due to acute hypoxic respiratory failure. Acute hypoxic respiratory failure due to recent influenza A infection, now with superimposed bacterial pneumonia Admitted to medical floor/no sepsis/WBC less than 12,000 IV ceftriaxone and IV azithromycin started on 10/26 Cough medication analgesics Wean O2 as tolerated not on home oxygen Hyperlipidemia continue statin Full code Lovenox Reason for continued hospitalization: Supplemental oxygen, IV abx Quality Stroke Does the patient have a stroke diagnosis?: No VTE Prior VTE?: No VTE Risk Level:: Medical - moderate - high VTE Device Contraindication: Treatment Not Indicated VTE Drug Contraindication: N/A - Med Ordered
[2024-10-28 15:14] VITALS: BP 123/58; PULSE 75; RESP 16; TEMP 36.2; O2SAT 95
[2024-10-28] MEDS: cefTRIAXone sodium 1 GM VIAL IVPUSH (15:40)
[2024-10-28] MEDS: Azithromycin 500 MG in 0.9 % Sodium Chloride 250 ML 125 MG IV (15:45)
[2024-10-28 19:32] VITALS: BP 122/60; PULSE 78; RESP 20; TEMP 37.1; O2SAT 95
[2024-10-28] MEDS: Enoxaparin Sodium 40 MG/0.4 ML SYRINGE SUBCUT (20:25)
[2024-10-28] MEDS: Benzonatate 100 MG CAPSULE 200 MG PO (20:25)
[2024-10-28] MEDS: Atorvastatin Calcium 20 MG TABLET PO (20:26)
[2024-10-29 02:52] VITALS: BP 120/62; PULSE 65; RESP 16; TEMP 36.6; O2SAT 96
[2024-10-29 07:49] VITALS: BP 121/62; PULSE 71; RESP 18; TEMP 36.7; O2SAT 95
[2024-10-29] MEDS: 0.9 % Sodium Chloride Flush 3 ML SYRINGE IVFLUSH (07:50)
[2024-10-29] MEDS: guaiFENesin DM 200/20/10 ML 10 ML SYRUP PO (07:50)
[2024-10-29] MEDS: Albuterol/Iprat 2.5/0.5MG 3 ML AMPUL.NEB INHALE (08:09)
[2024-10-29 08:12] VITALS: PULSE 88; RESP 18; O2SAT 88
[2024-10-29] MEDS: Acetaminophen 325 MG TABLET 650 MG PO (08:50)
--- NOTE | 2024-10-29 10:27 | MHC.CM.PN ---
Patient is discharged to home today. She has arranged for a ride home.
--- NOTE | 2024-10-29 10:30 | P.DS_ITS ---
DS: Providers Provider Date of Service: 10/29/24 Date of admission: 10/26/24 18:28 Date of discharge: 10/29/24 Primary care physician: Marjorie Viveros MD DS: Diagnosis Discharge Diagnosis (1) Right lower lobe pneumonia: Status: Acute (2) Hypoxia: Status: Acute DS: Summary Hospital Course Hospital Course: HPI: 74-year-old female with past medical history significant for hyperlipidemia recently diagnosed to have influenza A infection on October 16 and treated with prednisone and cough medication however due to persistent shortness of breath and fever patient went to see PCP where she was noted to be hypoxic with finger oximetry 89% on room air therefore referred to [place] emergency room, patient complaining of fever up to 103 48 hours ago associated with intractable dry cough and shortness of breath worse with exertion patient denies associated lightheadedness dizziness, no recent history of travel no other family member with similar symptoms, denies chest pain, no palpitations had headache that has now resolved has been taking Tylenol at home, workup in the ED chest x-ray showed right lower lobe pneumonia, WBC 11.5, hematocrit 36.9 stable electrolytes and kidney function, blood sugar 131, patient treated in the emergency room with IV ceftriaxone and IV azithromycin,, patient was ambulated but she was noted to have profound tachypnea oxygenation dropped to 87% on room air therefore patient is being admitted to [facility] with acute hypoxic respiratory failure due to influenza a and pneumonia. Hospital course: Acute hypoxemic respiratory failure due to bacterial pneumonia in a patient with recent influenza infection. Patient was admitted with supplemental oxygen which was weaned during hospital course and patient maintaining normal oxygen saturation on room air prior to discharge. Patient was started on IV ceftriaxone and IV azithromycin for right lower lobe pneumonia. She completed 3 day course of azithromycin 500 mg inpatient. Will discharge with cefpodoxime p.o. to complete 7 day course. Also given a prescription for benzonatate as needed for cough. Patient is hemodynamically stable and mentating well prior to discharge. Close follow-up with PCP in 1 week Status at Discharge Functional status at discharge: independent ambulation Overall status at discharge: patient is back to baseline Time Attestation Discharge Coordination Time (in mins): 32 minute Quality: Safe Use of Opioids Does Pt have an Active Cancer Diagnosis on the Problem List?: No Quality: Stroke Does the patient have a stroke diagnosis?: No Physical Exam Vital Signs: Vital Signs: Last Vital Signs Temp 98.0 F 10/29/24 07:49 Pulse 88 10/29/24 08:12 Resp 18 10/29/24 08:12 BP 121/62 10/29/24 07:49 Pulse Ox 95 10/29/24 07:49 O2 Del Method Nasal Cannula 10/29/24 07:49 O2 Flow Rate 2 10/29/24 07:49 Oxygen Flow Rate 2 10/26/24 15:07 BMI result Body Mass Index 25.1 General in no acute distress, intermittent coughing. Moist mucous membranes Neck no JVD. CVS regular rate rhythm, Respiratory lungs rhonchi, no respiratory distress, no wheeze Gastrointestinal abdomen soft, non tender, bowel sounds audible Extremities no edema. Neuro non focal Skin no rash Psych appropriate affect DS: Data Imaging Chest x-ray: Radiologist's impression: ITS Impressions Chest X-Ray 10/26/24 14:26 IMPRESSION: Right lower lobe pneumonia. Follow-up is recommended to document resolution. Electronically signed by: Sandro Mcguire MD 10/26/2024 03:20 PM EDT RP Discharge Plan Discharge Anticipated Discharge Date/Time: 10/29/24 10:25 Patient Disposition: Home, Self-Care Discharge Diagnosis: Acute hypoxic respiratory failure due to recent influenza A infection, now with superimposed bacterial pneumonia Referrals: Marjorie Viveros MD [Primary Care Provider] - 1 Week Discharge Medications: New benzonatate 100 mg Capsule 200 mg PO TID PRN (Reason: Cough) Qty: 10 0RF cefpodoxime 200 mg tablet 200 mg PO Q12H 4 Days Qty: 8 0RF Rx Instructions: must administer with a meal/food Continued calcium carbonate-vitamin D3 600 mg-5 mcg (200 unit) Tablet 1 tab PO DAILY atorvastatin 20 mg tablet 20 mg PO BEDTIME Discharge Orders: Discharge Order (Routine); Ordered 10/29/24 Ordered By: Ronnie Haas Diet: Advance to usual diet Activity on Discharge: As tolerated Stand Alone Forms: Patient Portal Discharge page Print Language: Tristanian Care Plan Goals: Follow-up with PCP within 1 week Health Concerns: Community-acquired pneumonia Plan of Treatment: Cefpodoxime 200 mg twice daily x4 days Benzonatate 100 mg 3 times daily as needed for cough Assessment: As above
[2024-10-29] MEDS: guaiFEN/Codeine SF 200/20/10ML 10 ML LIQUID PO (10:43)
== END 2024-10-29 11:38 | disposition home or self-care (01) | DRG 193 ==
LOC: HO.ED 16:11 → HO.EDOVER 18:42 → HO.S3 10-27 13:48
PROVIDERS: Physician Assistant Medical; Registered Nurse Emergency; Admitting Provider Hospitalist; Emergency Provider Student in an Organized Health Care Education/Training Program; PCP Internal Medicine; Visit Provider Student in an Organized Health Care Education/Training Program
DX: J15.9 Unspecified bacterial pneumonia (principal); J96.01 Acute respiratory failure with hypoxia; E78.5 Hyperlipidemia, unspecified; Z20.822 Contact with and (suspected) exposure to COVID-19; Z79.899 Other long term (current) drug therapy
CPT/HCPCS: 0241U; 36415; 71046; 80053; 84484; 85025; 93005; 94640; 99285; J0456; J0696; J1650

== ENCOUNTER → 2024-10-26 14:26 | Outpatient (BNV) | payer OTHER, SELFPAY | PROVIDERS: Emergency Provider Student in an Organized Health Care Education/Training Program; PCP Internal Medicine; Visit Provider Radiology Diagnostic Radiology | DX: J18.1 Lobar pneumonia, unspecified organism (principal) | CPT/HCPCS: 71046 ==

== ENCOUNTER → 2024-10-26 14:33 | Outpatient (BNV) | payer OTHER, SELFPAY | PROVIDERS: Admitting Provider Hospitalist; Emergency Provider Student in an Organized Health Care Education/Training Program; PCP Internal Medicine; Visit Provider Internal Medicine | DX: R94.31 Abnormal electrocardiogram [ECG] [EKG] (principal) | CPT/HCPCS: 93010 ==

== ENCOUNTER → 2024-10-26 18:28 | Outpatient (BNV) | payer OTHER, SELFPAY | PROVIDERS: Admitting Provider Hospitalist; Emergency Provider Student in an Organized Health Care Education/Training Program; PCP Internal Medicine; Visit Provider Hospitalist | DX: J18.9 Pneumonia, unspecified organism (principal); J96.01 Acute respiratory failure with hypoxia | CPT/HCPCS: 99223; 99232; 99239 ==

== ENCOUNTER 2024-11-12 12:10 | Inpatient (IN) | payer OTHER, SELFPAY ==
--- NOTE | ~2024-11-12 | US_ITS ---
CLINICAL HISTORY: Pt with bilateral PE, r o DVT Venous duplex ultrasound bilateral lower extremity COMPARISON: None FINDINGS: Expansile noncompressible thrombus present within the left popliteal vein extending into the left proximal posterior tibial vein. Otherwise the visualized deep veins are fully compressible with normal Doppler color flow and spectral tracings. No popliteal cyst. IMPRESSION: 1. Acute deep venous thrombosis within the left popliteal vein extending into the left posterior tibial vein. 2. Negative for right lower extremity deep vein thrombosis. This document has been electronically signed by: Fletcher Sahni MD on 11/12/2024 18:05:27
--- NOTE | ~2024-11-12 | XR_ITS ---
EXAMINATION: XR CHEST 2 VIEWS HISTORY: hypoxia COMPARISON: Comparison is made with the prior examination dated 10/26/2024. FINDINGS: PA and lateral views of the chest are submitted. There has been progression of previously seen airspace opacity in the right lower lobe. There has been improvement in aeration of the left lower lobe, however. There is no pleural effusion, pneumothorax, or pulmonary vascular congestion. The heart is normal in size. The bones are intact. XR/XR chest 2V IMPRESSION: Progression of right lower lobe pneumonia, with improvement on the left. Continued follow-up is recommended to document resolution. Electronically signed by: Sandro Mcguire MD 11/12/2024 01:11 PM EDT
--- NOTE | ~2024-11-12 | CT_ITS ---
EXAMINATION: CT ANGIOGRAM CHEST CLINICAL INFORMATION: Dyspnea, known pneumonia, rule out PE. COMPARISON: No prior CT available. TECHNIQUE: Multiple axial images were obtained through the chest after the administration of 65 mL of Omnipaque 350 intravenous contrast. Extensive vascular post-processing including two-dimensional and three-dimensional reformatted images were created and reviewed on an independent workstation. This CT examination was performed using dose optimization techniques as appropriate, variously including the following: *Automated exposure control *Adjustment of mA and/or kV according to patient size (this includes techniques or standardized protocols for targeted exams where dose is matched to indication/reason for exam; i.e. extremities or head) *Use of iterative reconstruction technique FINDINGS: VASCULAR: There are bilateral pulmonary emboli. Fairly heavy clot burden seen. There is evidence for right heart strain with inward bowing of the intraventricular septum. There is mild cardiomegaly. There is prominence of the main pulmonary artery. There is contrast reflux into the superior hepatic IVC. Findings the criteria for submassive PE. The aorta is nonaneurysmal without evidence of acute aortic syndrome. There is mild atheromatous plaque. The great vessels are patent. LUNGS: There is extensive small airway endobronchial mucous plugging seen in the lingula, right middle lobe, and bilateral lower lobes. There is multi segmental consolidative opacity in the right lower lobe, with sparing of the superior segment. This is consistent with pneumonia. There is subsegmental subpleural consolidative opacity in the left lower lobe inferiorly. Similar changes seen in the inferior lingula, and lateral right middle lobe. This is also likely guest relations representative of pneumonia and/or atelectasis. There is no pleural effusion or pneumothorax. MEDIASTINUM: There is no mass or adenopathy. There is no pericardial effusion. The central airways are patent. Mildly patulous appearing esophagus. Normal GE junction. Normal thyroid. AXILLA/CHEST WALL: No lymphadenopathy. UPPER ABDOMEN: Unremarkable. OSSEOUS STRUCTURES: No suspicious lytic or blastic bone lesions. Mild degenerative spinal changes present. CT/CT angio chest PE protocol IMPRESSION: 1. Bilateral pulmonary emboli present, with moderate to heavy clot burden. Right heart strain evident. Findings meet criteria for submassive PE. 2. Right lower lobe consolidation suspicious for pneumonia, with more proximal endobronchial mucous airway plugging. 3. Patchy endobronchial mucous plugging also noted in the left lower lobe, lingula, and right middle lobe. Associated subsegmental atelectasis, consolidative opacities in the inferior left lower lobe, and posterior lingula. 4. Mild cardiomegaly with inward bowing of the intraventricular septum. Mild hepatic IVC contrast reflux. Critical findings discussed with Dr. Julianne Akhtar via phone call at 4:43 PM, 11/12/2024. Electronically signed by: Justin Argueta MD 11/12/2024 04:49 PM EDT
[2024-11-12 12:38] VITALS: BP 157/79; PULSE 125; RESP 24; O2SAT 81; BMI 26.3
--- NOTE | 2024-11-12 12:43 | ED.GENADULT ---
HPI - General Adult General Chief complaint: Dyspnea Stated complaint: shortness of breath, pneumonia Time Seen by Provider: 11/12/24 12:56 Source: patient Mode of arrival: ambulatory Limitations: no limitations History of Present Illness HPI narrative: This is a 74-year-old woman with a past medical history of hyperlipidemia, recently diagnosed influenza a on October 16 treated with a prednisone and cough medication, recent hospital admission for right lower lobe pneumonia with hypoxic respiratory failure on October 26, 2024 treated with ceftriaxone/azithromycin and subsequent cefpodoxime/azithromycin who presents for evaluation of dyspnea and cough. The patient states that she was discharged from the hospital 2 weeks ago. She states that she never felt 100% better. She reports completing her antibiotics as prescribed. She states no fevers or chills. She states ongoing cough without sputum production or hemoptysis. She reports dyspnea. She reports occasionally feeling nauseous without having emesis. She states no urinary symptoms. She reports that she did have 1 loose nonbloody stool a day ago. She states no abdominal pain or chest pain. She reports some right-sided chest discomfort with coughing. She states no trauma. Related Data Home Medications ?Medication ?Instructions ?Recorded ?Confirmed atorvastatin 20 mg tablet 20 mg PO BEDTIME 10/16/24 11/12/24 calcium 600 mg (as 1 tab PO DAILY 10/26/24 11/12/24 carbonate)-vitamin D3 5 mcg (200 unit) tablet dextromethorphan HBr 10 mg/15 mL 10 mg PO Q4H PRN Cough 11/12/24 11/12/24 oral syrup guaifenesin 600 mg tablet, 600 mg PO Q12H PRN Cough 11/12/24 11/12/24 extended release 12 hr (Mucinex) Allergies Allergy/AdvReac Type Severity Reaction Status Date / Time No Known Allergies Allergy Verified 11/12/24 12:39 Review of Systems Review of Systems: ROS as per [facility] Social History Social History Household Members: Spouse Housing: House Do you presently have visiting nurse or other home services: No Alcohol intake: current Alcohol intake frequency: a few times a week Patient Tobacco Use Status: Never used Tobacco Smoked in Last 30 Days: No Use of substances other than those prescribed or required for medical reasons: No Advance Directives: No Advance Directives Information Provided: Yes Do you have a plan to hurt others: No Plan service: No Physical Exam ED Vital Signs: Vital Signs - 24 hr 11/12/24 12:38 11/12/24 14:35 Pulse Rate 125 H 98 Respiratory Rate 24 H 20 Blood Pressure 157/79 H 144/72 H Pulse Oximetry 81 L 91 L Oxygen Delivery Method Room Air Nasal Cannula Oxygen Flow Rate 4 BMI result Body Mass Index 26.3 Gen: NAD, AOx3 HEENT: NCAT, EOMI, normal conjunctiva CV: RRR Pulm: CTAB, no increased work of breathing GI: Soft, NTND, no rebound, guarding or rigidity Neuro: Grossly non focal Course Course Course Narrative: This is a rapid medical exam performed by Luz Levy NP: Additional HPI, ROS, PE not included below will be deferred to primary provider. Patient is a 74-year-old female presenting with shortness of breath. Recently admitted inpatient for PNA. Patient noted to be hypoxic at 81% on room air with HR in the 130s. Plan: foam charger notified and patient brought directly to main ED Medications Administered Discontinued Medications Generic Name Dose Route Start Last Admin Trade Name Freq PRN Reason Stop Dose Admin Hydrocortisone Sodium Succinate 100 mg 11/12/24 13:22 11/12/24 13:40 Hydrocortisone Sod Succ/Pf 100 Mg Vial IVPUSH 11/12/24 13:23 100 mg ONCE ONE Administration Lactated Ringer's 2,148 mls @ 2,148 mls/hr 11/12/24 12:58 11/12/24 13:40 Lr 30 ml/kg infuse over 1 hr (2148 ml) 11/12/24 13:57 2,148 mls/hr IV Administration .Q1H ONE Piperacillin Sod/Tazobactam 50 mls @ 100 mls/hr 11/12/24 13:12 11/12/24 14:34 Sod 3.375 gm/ Sodium Chloride IV 11/12/24 13:41 Infused ONCE ONE Infusion Vancomycin HCl 1,000 mg/ 535 mls @ 267.5 mls/hr 11/12/24 13:30 11/12/24 14:34 Vancomycin HCl 750 mg/ Sodium IV 11/12/24 15:29 267.5 mls/hr Chloride ONCE ONE Administration Medical Decision Making Medical Decision Making [facility] Narrative: 1324 - patient presents tachycardic and hypoxic on room air. Concern for pneumonia given recent hospitalization and patient is certainly triggering sepsis. Given recent hospitalization and IV antibiotics we will treat the patient empirically with broad-spectrum antibiotics including Zosyn, vancomycin and doxycycline. We will obtain sepsis labs and provide 30 cc/kg IV fluid bolus with lactated Ringer's. The patient also provided 100 mg IV hydrocortisone for severe pneumonia Differential diagnosis includes, but is not limited to viral URI, pneumonia, sepsis, pneumothorax. Patient is afebrile and hemodynamically stable albeit tachycardic on arrival and found to have new oxygen requirement. Exam is benign and reassuring. I reviewed the patient's labs, viral panel, EKG and chest x-ray as below. I discussed the patient's case and management with hospitalist, Dr. Centeno, who accepts the patient for admission. Critical Care Time: A total of 35 minutes spent in direct patient care with coordinating critical resuscitation, procedures, reviewing records, discussing with consultants, reviewing labs, and/or managing patient. Admission/Observation Consideration of admission/observation: Escalation of care including admission/observation considered Consult Healthcare Provider Management of the patient was discussed with: Hospitalist Lab Data MDM Lab Attestation statement: I reviewed the patient's lab results. Per my interpretation, labs overall benign and reassuring with the exception of troponin elevation at work, which is likely demand ischemia in the setting of hypoxia (patient presents with SpO2 81% on room air), patient states no chest pain and EKG demonstrates no ischemic changes to suggest ACS so this is a very low clinical suspicion. Patient is negative for COVID-19, influenza and RSV. 11/12/24 13:23 11/12/24 13:23 Labs: Lab Results 11/12/24 11/12/24 11/12/24 Range/Units 13:23 13:24 13:25 WBC 8.1 (4.8-10.8) X10*3/uL RBC 4.13 L (4.20-5.50) X10*6/uL Hgb 13.1 (12.0-16.0) g/dl Hct 37.8 (37.0-47.0) % MCV 91.5 (80.0-98.0) fL MCH 31.7 (27.0-33.0) pg MCHC 34.7 (31.0-35.0) g/dl RDW 13.7 (11.0-16.0) % Plt Count 272 (160-400) X10*3/uL MPV 9.2 L (9.4-12.3) fL Immature Gran % (Auto) 0.5 H (0.0-0.4) % Neut % (Auto) 79.5 H (45-73) % Lymph % (Auto) 12.4 L (20-40) % [place] % (Auto) 7.4 (2-11) % Eos % (Auto) 0.1 (0-4) % Baso % (Auto) 0.1 (0-2) % Lymph # (Auto) 1.0 L (1.2-4.9) X10*3/uL [place] # (Auto) 0.6 (0.1-1.2) X10*3/uL Eos # (Auto) 0.0 (0.0-0.4) X10*3/uL Baso # (Auto) 0.0 (0.0-0.2) X10*3/uL Abs Immat Gran (auto) 0.04 H (0.00-0.03) X10*3/uL Absolute Neuts (auto) 6.5 (2.0-8.3) x10*3/uL Absolute Nucleated RBC 0.000 (0.0-0.012) X10*3/uL Nucleated RBC % (auto) 0.0 (0.0-0.2) /100WBC PT 13.4 H (10.9-12.4) SEC INR 1.2 H (0.9-1.1) D-Dimer High Sensitivty 5488 NG/ML VBG pH (7.32-7.43) VBG pCO2 mmHg VBG pO2 mmHg VBG HCO3 (22-26) mmol/L VBG O2 Saturation % VBG Base Excess mmol/L Sodium 140 (135-145) mmol/L Potassium 4.0 (3.3-5.1) mmol/L Chloride 106 (96-108) mmol/L Carbon Dioxide 23 (22-29) mmol/L Anion Gap 15 (12-20) BUN 15 (9-16) mg/dL Creatinine 0.74 (0.5-1.4) mg/dL Estim Creat Clear Calc 65.1 Estimated GFR > 60 Random Glucose 127 H (60-115) mg/dL Lactic Acid 1.7 (0.5-2.0) mmol/L Calcium 10.0 D (8.4-10.2) mg/dL Total Bilirubin 0.7 Cancelled (0.0-1.0) mg/dL Direct Bilirubin 0.3 Cancelled (0.0-0.5) mg/dL AST 34 H Cancelled (5-31) U/L ALT 24 Cancelled (0-31) U/L Alkaline Phosphatase 89 Cancelled (39-117) U/L Troponin I High Sens 254.0 H* D (<3.5-17.0) ng/L B-Natriuretic Peptide 72 (<100) pg/mL Total Protein 8.0 Cancelled (6.5-8.0) g/dL Albumin 3.8 Cancelled (3.5-5.0) g/dL Influenza Type A (PCR) NEGATIVE (Negative) Influenza Type B (PCR) NEGATIVE (Negative) RSV RNA Qual (PCR) NEGATIVE (Negative) SARS-CoV-2 RNA (RT-PCR) NEGATIVE (Negative) 11/12/24 Range/Units 13:35 WBC (4.8-10.8) X10*3/uL RBC (4.20-5.50) X10*6/uL Hgb (12.0-16.0) g/dl Hct (37.0-47.0) % MCV (80.0-98.0) fL MCH (27.0-33.0) pg MCHC (31.0-35.0) g/dl RDW (11.0-16.0) % Plt Count (160-400) X10*3/uL MPV (9.4-12.3) fL Immature Gran % (Auto) (0.0-0.4) % Neut % (Auto) (45-73) % Lymph % (Auto) (20-40) % [place] % (Auto) (2-11) % Eos % (Auto) (0-4) % Baso % (Auto) (0-2) % Lymph # (Auto) (1.2-4.9) X10*3/uL [place] # (Auto) (0.1-1.2) X10*3/uL Eos # (Auto) (0.0-0.4) X10*3/uL Baso # (Auto) (0.0-0.2) X10*3/uL Abs Immat Gran (auto) (0.00-0.03) X10*3/uL Absolute Neuts (auto) (2.0-8.3) x10*3/uL Absolute Nucleated RBC (0.0-0.012) X10*3/uL Nucleated RBC % (auto) (0.0-0.2) /100WBC PT (10.9-12.4) SEC INR (0.9-1.1) D-Dimer High Sensitivty NG/ML VBG pH 7.47 H (7.32-7.43) VBG pCO2 29 mmHg VBG pO2 41 mmHg VBG HCO3 21 L (22-26) mmol/L VBG O2 Saturation 70.0 % VBG Base Excess -0.6 mmol/L Sodium (135-145) mmol/L Potassium (3.3-5.1) mmol/L Chloride (96-108) mmol/L Carbon Dioxide (22-29) mmol/L Anion Gap (12-20) BUN (9-16) mg/dL Creatinine (0.5-1.4) mg/dL Estim Creat Clear Calc Estimated GFR Random Glucose (60-115) mg/dL Lactic Acid (0.5-2.0) mmol/L Calcium (8.4-10.2) mg/dL Total Bilirubin (0.0-1.0) mg/dL Direct Bilirubin (0.0-0.5) mg/dL AST (5-31) U/L ALT (0-31) U/L Alkaline Phosphatase (39-117) U/L Troponin I High Sens (<3.5-17.0) ng/L B-Natriuretic Peptide (<100) pg/mL Total Protein (6.5-8.0) g/dL Albumin (3.5-5.0) g/dL Influenza Type A (PCR) (Negative) Influenza Type B (PCR) (Negative) RSV RNA Qual (PCR) (Negative) SARS-CoV-2 RNA (RT-PCR) (Negative) Independent Interpretation I performed an independent interpretation of an: Plain X-Ray Interpretation: Per my interpretation, chest x-ray shows right lower lobe pneumonia. EKG demonstrates a sinus tachycardia at 110 beats per minute, ME 128, QRS 76, QTC 462, no STEMI, T-wave inversions anterolaterally (no significant change compared to prior EKG October 26, 2024) Radiology Impression Discussion of test interpretation with radiology: I have reviewed the radiologist's reading. Radiologist Impression: XR/XR chest 2V IMPRESSION: Progression of right lower lobe pneumonia, with improvement on the left. Continued follow-up is recommended to document resolution. Electronically signed by: Sandro Mcguire MD 11/12/2024 01:11 PM EDT RP Dictated By: Sandro Mcguire MD Signed By: <Electronically signed by Sandro Mcguire MD in OV> 11/12/24 1311 Discharge Plan Discharge Clinical Impression: Right lower lobe pneumonia, Sepsis, Leukocytosis Patient Disposition: Admitted As Inpatient Prescriptions: No Action calcium carbonate-vitamin D3 600 mg-5 mcg (200 unit) Tablet 1 tab PO DAILY guaifenesin [Mucinex] 600 mg Tablet Extended Release 12hr 600 mg PO Q12H PRN (Reason: Cough) Dextromethorphan Cough 10 mg/15 mL Syrup 10 mg PO Q4H PRN (Reason: Cough) atorvastatin 20 mg tablet 20 mg PO BEDTIME Print Language: Italian
--- NOTE | 2024-11-12 12:44 | ECG_ITS ---
Test Reason : DYSPNEA Blood Pressure : */* mmHG Vent. Rate : 110 BPM Atrial Rate : 110 BPM P-R Int : 128 ms QRS Dur : 76 ms QT Int : 342 ms P-R-T Axes : 64 22 172 degrees QTcB Int : [address] & T wave abnormality, consider anterolateral ischemia Abnormal ECG When compared with ECG of 26-Oct-2024 16:30, No significant change was found Referred By: Adele Levy Electronically Signed By: KACIE FERNANDEZ MD
[2024-11-12 13:34] LABS: MANUAL DIFF FLAG NO
[2024-11-12 13:37] LABS: Venous Blood Gas Refer to POC result
[2024-11-12 13:38] LABS: Basophils Percent Auto 0.1 % (0-2); Eosinophils Percent Auto 0.1 % (0-4); Hematocrit 37.8 % (37.0-47.0); Hemoglobin 13.1 g/dl (12.0-16.0); Imm Gran Abs Auto 0.04 X10*3/uL (0.00-0.03); Imm Gran Pct Auto 0.5 % (0.0-0.4); Lymphocytes Percent Auto 12.4 % (20-40); Mean Corpuscular HGB Conc 34.7 g/dl (31.0-35.0); Mean Corpuscular Hemoglobin 31.7 pg (27.0-33.0); Mean Corpuscular Volume 91.5 fL (80.0-98.0); Mean Platelet Volume 9.2 fL (9.4-12.3); Monocytes Absolute Auto 0.6 X10*3/uL (0.1-1.2); Monocytes Percent Auto 7.4 % (2-11); Neutrophils Absolute Auto 6.5 x10*3/uL (2.0-8.3); Neutrophils Percent Auto 79.5 % (45-73); Platelet Count 272 X10*3/uL (160-400); Red Blood Count 4.13 X10*6/uL (4.20-5.50); Red Cell Distribution Width 13.7 % (11.0-16.0); White Blood Count 8.1 X10*3/uL (4.8-10.8)
[2024-11-12] MEDS: Hydrocortisone Sod Succ/PF 100 MG VIAL IVPUSH (13:40)
[2024-11-12] MEDS: Piperacillin Sodium/Tazobactam 3.375 GM in 0.9 % Sodium Chloride 50 ML IV (13:40)
[2024-11-12 13:45] LABS: VBG Base Excess -0.6 mmol/L; VBG HCO3 21 mmol/L (22-26); VBG pCO2 29 mmHg; VBG pH 7.47 (7.32-7.43); VBG pO2 41 mmHg
[2024-11-12 13:46] LABS: INTERNATIONAL NORM RATIO 1.2 (0.9-1.1); Prothrombin Time 13.4 SEC (10.9-12.4)
[2024-11-12 13:56] LABS: Lactic Acid 1.7 mmol/L (0.5-2.0)
--- NOTE | 2024-11-12 14:00 | PC.NURSE ---
pt is alert and oriented, skin pwd, respirations labored and breathing at about 30 per min, ls very diminished, pt reports just getting over pneumonia and actually was admitted for it, pt having a cough, sometimes productive wit greenish phlegm sometimes dry, denies pain, pt is currently on 4 l and sating about 89-91%
[2024-11-12 14:05] LABS: Alanine Aminotransferase 24 U/L (0-31); Albumin Level 3.8 g/dL (3.5-5.0); Alkaline Phosphatase 89 U/L (39-117); Anion Gap 15 (12-20); Aspartate Amino Transferase 34 U/L (5-31); Bilirubin Direct 0.3 mg/dL (0.0-0.5); Bilirubin Total 0.7 mg/dL (0.0-1.0); Blood Urea Nitrogen 15 mg/dL (9-16); Carbon Dioxide 23 mmol/L (22-29); Chloride 106 mmol/L (96-108); Creatinine Clr Calc Pharmacy 65.1; Estimated Glomerular Filt Rate > 60; Glucose Random 127 mg/dL (60-115); Sodium 140 mmol/L (135-145)
[2024-11-12 14:11] LABS: B Type Natriuretic Peptide 72 pg/mL (<100)
[2024-11-12 14:15] LABS: Influenza A PCR NEGATIVE (Negative); Influenza B PCR NEGATIVE (Negative); Resp Syncy Virus RNA Qual PCR NEGATIVE (Negative); SARS COV2 PCR INHOUSE NEGATIVE (Negative)
[2024-11-12] MEDS: vancomycin HCL 1,000 MG, vancomycin HCL 750 MG in 0.9 % Sodium Chloride 500 ML 267.5 MG IV (14:34)
[2024-11-12 14:35] VITALS: BP 144/72; PULSE 98; RESP 20; O2SAT 91
--- NOTE | 2024-11-12 14:44 | PM.IMHP ---
History of Present Illness Date of Service: 11/12/24 Attending physician on admission: Ethan Melendez Chief Complaint: SOB Addendum: CTA of chest positive for bilateral pulmonary emboli with moderate to heavy clot burden, right heart strain, and findings meeting criteria for submassive PE. Also showed right lower lobe consolidation suspicious for pneumonia, and with bilateral endobronchial mucous airway plugging. Will start pt on heparin drip, order echocardiogram and bilateral lower extremity ultrasound. Will also consult vascular surgery and Cardiology. Pt is a 74-year-old female with a PMH significant for?HLD who presents to the ED with?worsening SOB and difficulty breathing since this morning. Pt was recently admitted to the hospital on 10/26-10/29 where she was treated for pneumonia in the setting of recent influenza type a infection (diagnosed on 10/16/2024). Pt was treated with IV azithromycin and ceftriaxone in the hospital and sent home on cefpodoxime 200 mg b.i.d. x4 days. Pt reports felt better the week after discharge and had uneventful one-week follow-up with PCP. This week pt sates thought was getting better but might have plateaued, until this morning when she awoke with significantly worsened SOB and difficulty breathing. Also complains of occasional productive cough, palpitations, and chest tightness associated with cough and deep breathing. Denies chest pain or pressure. Pt denies any lower leg edema or calf tenderness. No fever, chills, nausea, vomiting, abdominal pain. In the ED pt was tachycardic up to 125, tachypneic up to 24, and hypertensive up to 157/79, satting at 81% on RA. Labs were significant for troponin 254.0 and D-dimer 5488, otherwise grossly unremarkable and around baseline for pt. No leukocytosis. Stable H&H. No significant electrolyte abnormalities. Renal function WNL. Lactic acid WNL. Liver function largely WNL. Tested negative for flu, COVID, RSV. CXR showed progression of right lower lobe pneumonia with improvement on the left. EKG demonstrated sinus tachycardia of [address] depressions in inferolateral leads, similar to prior. Pt was treated with IVF, hydrocortisone, vancomycin, Zosyn, and doxy. Pt will be admitted to the hospital for treatment and further evaluation of acute hypoxic respiratory failure in the setting of worsening right lower lobe pneumonia with sepsis that failed outpatient therapy. Review of Systems Review of Systems: Negative except for that which is stated in the HPI. [facility] Medical History HLD (hyperlipidemia) Social History Household Members: Spouse Housing: House Do you presently have visiting nurse or other home services: No Alcohol intake: current Alcohol intake frequency: holidays/special occasions only Patient Tobacco Use Status: Never used Tobacco Second Hand Smoke Exposure: No service: No Meds Allergies Allergy/AdvReac Type Severity Reaction Status Date / Time No Known Allergies Allergy Verified 11/12/24 12:39 Active Medications: Current Medications Vancomycin HCl 1,000 mg/Vancomycin HCl 750 mg/ Sodium Chloride 535 mls @ 267.5 mls/hr IV ONCE ONE Stop: 11/12/24 15:29 Last Admin: 11/12/24 14:34 Dose: 267.5 mls/hr Home Medications ?Medication ?Instructions ?Recorded ?Confirmed ?Last Taken ?Type atorvastatin 20 mg tablet 20 mg PO BEDTIME 10/16/24 11/12/24 11/11/24 History calcium 600 mg (as 1 tab PO DAILY 10/26/24 11/12/24 11/11/24 History carbonate)-vitamin D3 5 mcg (200 unit) tablet dextromethorphan HBr 10 mg/15 mL 10 mg PO Q4H PRN Cough 11/12/24 11/12/24 Unknown History oral syrup guaifenesin 600 mg tablet, 600 mg PO Q12H PRN Cough 11/12/24 11/12/24 Unknown History extended release 12 hr (Mucinex) Physical Exam Vital Signs and Narrative: Vital Signs: Last Vital Signs Pulse 98 11/12/24 14:35 Resp 20 11/12/24 14:35 BP 144/72 H 11/12/24 14:35 Pulse Ox 91 L 11/12/24 14:35 O2 Del Method Nasal Cannula 11/12/24 14:35 O2 Flow Rate 4 11/12/24 14:35 BMI result Body Mass Index 26.3 General: AOx3, looks uncomfortable Resp: CTA. Increased work of breathing. CVS: S1, S2, RRR GI: +BS, NT, no distention Skin: Warm, dry Neuro: Cranial nerves II-XII grossly intact bilaterally. Motor grossly intact bilaterally Extremities: No edema Psych: Appropriate affect Results Labs 11/13/24 07:09 11/13/24 07:09 Labs: Laboratory Results - last 24 hr 11/12/24 11/12/24 11/12/24 13:23 13:24 13:25 MCV 91.5 MCH 31.7 MCHC 34.7 RDW 13.7 Plt Count 272 MPV 9.2 L Immature Gran % (Auto) 0.5 H Neut % (Auto) 79.5 H Lymph % (Auto) 12.4 L [place] % (Auto) 7.4 Eos % (Auto) 0.1 Baso % (Auto) 0.1 Lymph # (Auto) 1.0 L [place] # (Auto) 0.6 Eos # (Auto) 0.0 Baso # (Auto) 0.0 Abs Immat Gran (auto) 0.04 H Absolute Neuts (auto) 6.5 Absolute Nucleated RBC 0.000 Nucleated RBC % (auto) 0.0 PT 13.4 H INR 1.2 H VBG pH VBG pCO2 VBG pO2 VBG HCO3 VBG O2 Saturation VBG Base Excess Anion Gap 15 Estim Creat Clear Calc 65.1 Estimated GFR > 60 Random Glucose 127 H Lactic Acid 1.7 Calcium 10.0 D Total Bilirubin 0.7 Cancelled Direct Bilirubin 0.3 Cancelled AST 34 H Cancelled ALT 24 Cancelled Alkaline Phosphatase 89 Cancelled B-Natriuretic Peptide 72 Total Protein 8.0 Cancelled Albumin 3.8 Cancelled Influenza Type A (PCR) NEGATIVE Influenza Type B (PCR) NEGATIVE RSV RNA Qual (PCR) NEGATIVE SARS-CoV-2 RNA (RT-PCR) NEGATIVE 11/12/24 13:35 MCV MCH MCHC RDW Plt Count MPV Immature Gran % (Auto) Neut % (Auto) Lymph % (Auto) [place] % (Auto) Eos % (Auto) Baso % (Auto) Lymph # (Auto) [place] # (Auto) Eos # (Auto) Baso # (Auto) Abs Immat Gran (auto) Absolute Neuts (auto) Absolute Nucleated RBC Nucleated RBC % (auto) PT INR VBG pH 7.47 H VBG pCO2 29 VBG pO2 41 VBG HCO3 21 L VBG O2 Saturation 70.0 VBG Base Excess -0.6 Anion Gap Estim Creat Clear Calc Estimated GFR Random Glucose Lactic Acid Calcium Total Bilirubin Direct Bilirubin AST ALT Alkaline Phosphatase B-Natriuretic Peptide Total Protein Albumin Influenza Type A (PCR) Influenza Type B (PCR) RSV RNA Qual (PCR) SARS-CoV-2 RNA (RT-PCR) Imaging Radiologist's Impressions: Impressions Chest X-Ray 11/12/24 12:44 IMPRESSION: Progression of right lower lobe pneumonia, with improvement on the left. Continued follow-up is recommended to document resolution. Electronically signed by: Sandro Mcguire MD 11/12/2024 01:11 PM EDT RP Assessment and Plan (1) Right lower lobe pneumonia: Status: Acute (2) Acute hypoxic respiratory failure: Status: Acute Plan Pt is a 74-year-old female with a PMH significant for?HLD who presents to the ED with?worsening SOB and difficulty breathing since this morning. Pt will be admitted to the hospital for treatment and further evaluation of acute hypoxic respiratory failure in the setting of worsening right lower lobe pneumonia with sepsis that failed outpatient therapy. Acute hypoxic respiratory failure in the setting of worsening right lower lobe pneumonia that failed outpatient therapy Hypoxic at 81% on RA, increased SOB difficulty breathing since this morning Admitted to hospital on 10/26-10/29 for pneumonia after recent influenza type a infection, discharged home on cefuroxime 200 mg b.i.d. x4 days CXR showed worsening right lower lobe pneumonia with improvement on the left Pt meets sepsis criteria with tachycardia and tachypnea Pt given IVF and started on broad-spectrum antibiotics in the ED Will treat with linezolid and Zosyn, started 11/12/2024 Titrate supplemental O2 >92, wean as tolerated Follow cultures Question of PE Pt with sudden-onset increased SOB, tachycardia, and hyxpoxia since this morning Elevated d-dimer No LLE or calf tenderness Will get CTA of chest to r/o PE HLD Continue statin Full Code Attending:?Dr. Melendez DVT Prophylaxis: Waiting on CTA before choosing agent Pt will require a hospitalization of at least two nights for treatment of?acute hypoxic respiratory in the setting of worsening right lower lobe lobe pneumonia with sepsis. Given that pt failed outpatient therapy on oral antibiotics, will require inpatient hospitalization for administration of IV antibiotics, supplemental oxygen, and additional workup to rule out PE. Quality Stroke Does the patient have a stroke diagnosis?: No VTE Prior VTE?: No VTE Risk Level:: Medical - moderate - high VTE Device Contraindication: Treatment Not Indicated VTE Drug Contraindication: N/A - Med Ordered
--- NOTE | 2024-11-12 14:59 | PHA.MEDREC ---
Pharmacy Consult ? Medication Reconciliation Pharmacy has completed the medication reconciliation. Spoke with patient and she confirmed her medications. Patient confirmed she took her medications last night.
--- NOTE | 2024-11-12 15:01 | PHA.MEDREC ---
Addendum entered by Serenity Cancino RPh 11/12/24 15:17: Reviewed by [facility] Original Note: Pharmacy Consult ? Medication Reconciliation Pharmacy has completed the medication reconciliation. Spoke with patient and she confirmed her medications. Patient confirmed she finished the Cefpodoxime regimen in the last week. Patient confirmed she took her medications last night.
[2024-11-12 15:22] LABS: D Dimer High Sensitivity 5488 NG/ML
[2024-11-12 16:04] VITALS: BP 136/79; PULSE 98; RESP 28; TEMP 36.6; O2SAT 90
[2024-11-12] MEDS: iohexoL 350 MG/ML 100 ML INFUS..BTL IV (16:22)
[2024-11-12 16:54] LABS: Procalcitonin 0.05 ng/mL
[2024-11-12 17:04] VITALS: BP 127/60; PULSE 96; RESP 26; O2SAT 94
[2024-11-12 17:24] VITALS: BMI 28.2
--- NOTE | 2024-11-12 17:31 | HE.PHANOTE ---
CALLED ED AT 1653 TO ASK FOR UPDATED WEIGHT FOR HEPARIN DRIP. HAD TO CALL BACK AT 1718 IT WASN'T UPDATED YET. RN UPDATED WEIGHT AND ORDER WAS COMPLETE AT 1730.
[2024-11-12 17:32] LABS: PTT Heparin Drip 25.4 SEC (53-77.9)
[2024-11-12 17:35] LABS: Troponin-I High Sensitivity 248.4 ng/L (<3.5-17.0)
[2024-11-12] MEDS: Heparin Sodium,Porcine 5,000 UNIT/ML VIAL 5700 UNIT IVPUSH (17:43)
[2024-11-12] MEDS: Heparin Sodium,Porcine/1/2NS 25,000 UNIT/250 ML IV.SOLN 10.75 UNIT IVCONT (17:45)
[2024-11-12] MEDS: 0.9 % Sodium Chloride Flush 3 ML SYRINGE IVFLUSH (17:47)
--- NOTE | 2024-11-12 18:27 | P.CONGS_ITS ---
History of Present Illness Consult details Consult date: 11/12/24 Reason for consult: other (Pulmonary embolism) Narrative: This is a 74-year-old female who originally presented to the hospital earlier this month with pneumonia. Subsequently upon discharge a do or 2 later she did disc cover some calf discomfort in the left lower extremity. She had been doing her routine things an office in became shortness of breath over the last day or so. Upon presentation to the emergency room she was satting 81% on room air. At the current time she appears to be doing a little bit better she is on 3 L nasal cannula and was satting 89%. She was able to speak comfortably and was sitting up in bed with at bedside. She now presents for vascular evaluation. Upon further discussion with her this is a first-time event. She has no prior history of clotting. She has no history of a filter as well. Review of Systems 2 Review of Systems: Yes all other systems are reviewed and are negative Constitutional: Constitutional: Reports no additional constitutional complaints ENT: Reports Normal hearing present Cardiovascular: Cardiovascular: Denies chest pain, Denies chest pain at rest, Denies chest pain with activity and Denies pedal edema Respiratory: Respiratory: Denies cough Gastrointestinal: Gastrointestinal: Denies abdominal pain Musculoskeletal: Musculoskeletal: Denies abnormal gait, Denies muscle cramps and Denies radiating pain into limb Integumentary/Breasts: Skin/Breast: Denies skin ulcer and Denies wounds Neurologic: Reports Normal hearing present and Denies abnormal gait Psychiatric: Psychiatric: Reports no additional psychiatric complaints [facility] Past Medical History Medical History (Updated 11/12/24 @ 18:32 by Usama Barton MD) HLD (hyperlipidemia) Social History Social History Household Members: Spouse Housing: House Do you presently have visiting nurse or other home services: No Alcohol intake: current Alcohol intake frequency: a few times a week Patient Tobacco Use Status: Never used Tobacco Smoked in Last 30 Days: No Use of substances other than those prescribed or required for medical reasons: No Advance Directives: No Advance Directives Information Provided: Yes Do you have a plan to hurt others: No Plan service: No Meds Allergies Allergy/AdvReac Type Severity Reaction Status Date / Time No Known Allergies Allergy Verified 11/12/24 12:39 Active Medications: Current Medications Acetaminophen (Acetaminophen 325 Mg Tablet) 650 mg PO Q6H PRN PRN Reason: Pain, Mild 1-3,fever,headache Atorvastatin Calcium (Atorvastatin Calcium 20 Mg Tablet) 20 mg PO BEDTIME [facility] Calcium Carbonate (Calcium Carbonate 750 Mg Tab.Chew) 750 mg PO Q4H PRN PRN Reason: Heartburn Guaifenesin (Guaifenesin La 600 Mg Tab.Er.12h) 600 mg PO Q12H PRN PRN Reason: Cough Heparin Sodium (Porcine) (Heparin Sodium,Porcine 5,000 Unit/Ml Vial) 3,100 unit 40 unit/kg (3100 unit) IVPUSH PROTOCOL BOLUS PRN; Protocol PRN Reason: 40 unit/kg - Heparin Protocol Heparin Sodium (Porcine) (Heparin Sodium,Porcine 5,000 Unit/Ml Vial) 6,100 unit 80 unit/kg (6100 unit) IVPUSH PROTOCOL BOLUS PRN; Protocol PRN Reason: 80 unit/kg - Heparin Protocol Linezolid (Zyvox/D5w) 600 mg in 300 mls @ 300 mls/hr IV Q12H NADIA Piperacillin Sod/Tazobactam (Sod 4.5 gm/ Sodium Chloride) 50 mls @ 100 mls/hr IV Q6H NADAI Heparin Sodium/Sodium Chloride (Heparin Sodium,Porcine/1/2ns) 25,000 unit in 250 mls @ 0 mls/hr IVCONT .Q0M [facility]; Protocol Last Admin: 11/12/24 17:45 Dose: 14 units/kg/hr, 10.75 mls/hr Magnesium Hydroxide (Milk Of Magnesia 30 Ml Oral.Susp) 30 ml PO DAILY PRN PRN Reason: Constipation Melatonin (Melatonin 3 Mg Tablet) 6 mg PO BEDTIME PRN PRN Reason: Insomnia Ondansetron HCl (Ondansetron Hcl 4 Mg/2 Ml Vial) 4 mg IVPUSH Q8H PRN PRN Reason: Nausea and Vomiting Sodium Chloride (0.9 % Sodium Chloride Flush 3 Ml Syringe) 3 ml IVFLUSH QSHIFT [facility] Last Admin: 11/12/24 17:47 Dose: 3 ml Home Medications ?Medication ?Instructions ?Recorded ?Confirmed ?Last Taken ?Type atorvastatin 20 mg tablet 20 mg PO BEDTIME 10/16/24 11/12/24 11/11/24 History calcium 600 mg (as 1 tab PO DAILY 10/26/24 11/12/24 11/11/24 History carbonate)-vitamin D3 5 mcg (200 unit) tablet dextromethorphan HBr 10 mg/15 mL 10 mg PO Q4H PRN Cough 11/12/24 11/12/24 Unknown History oral syrup guaifenesin 600 mg tablet, 600 mg PO Q12H PRN Cough 11/12/24 11/12/24 Unknown History extended release 12 hr (Mucinex) Physical Exam 2 Vital Signs: Vital Signs: Last Vital Signs Temp 97.9 F 11/12/24 16:04 Pulse 96 11/12/24 17:04 Resp 26 H 11/12/24 17:04 BP 127/60 11/12/24 17:04 Pulse Ox 94 11/12/24 17:04 O2 Del Method Nasal Cannula 11/12/24 17:04 O2 Flow Rate 4 11/12/24 17:04 BMI result Body Mass Index 28.2 Const: General: cooperative, healthy appearing and comfortable O rientation/consciousness: oriented to person, oriented to place and oriented to time HEENT: Head: Yes normal to inspection Neck: Neck: Yes normal visual inspection Carotids: no bruits Chest: Chest palpation & inspection: normal inspection of the chest Resp: Effort & Inspection: normal respiratory effort and able to speak in complete sentences Auscultation: clear to auscultation bilaterally, no crackles, no rales, no rhonchi and no wheezes Cardio: Rate: regular rate Rhythm: regular rhythm Heart sounds: S1 normal heart sound present and S2 normal heart sound present Bruits: no carotid bruits Peripheral pulses: Peripheral pulses 2+ throughout GI: Inspection: Yes normal to inspection Skin: Wounds: no wounds Hair: normal Neuro: General: oriented to person, oriented to place and oriented to time Cranial nerves: Yes CN's II-XII intact bilaterally and Yes Normal hearing present Cognition (Neuro): normal cognition Motor exam (neuro): 5/5 motor strength present throughout Extrem: Other: venous exam: No significant superficial varicosities or spider telangiectasias, minimal edema General: No clubbing, No cyanosis and No edema Psych: Appearance: grossly normal Mental Status: mental status grossly normal Speech and movement: Normal speech and movement present Results Labs 11/12/24 13:23 11/12/24 13:23 Labs: Abnormal lab results 0311/12/24 11/12/24 Range/Units 13:23 13:35 17:03 RBC 4.13 L (4.20-5.50) X10*6/uL MPV 9.2 L (9.4-12.3) fL Immature Gran % (Auto) 0.5 H (0.0-0.4) % Neut % (Auto) 79.5 H (45-73) % Lymph % (Auto) 12.4 L (20-40) % Lymph # (Auto) 1.0 L (1.2-4.9) X10*3/uL Abs Immat Gran (auto) 0.04 H (0.00-0.03) X10*3/uL PT 13.4 H (10.9-12.4) SEC INR 1.2 H (0.9-1.1) aPTT Heparin Protocol 25.4 L (53-77.9) SEC VBG pH 7.47 H (7.32-7.43) VBG HCO3 21 L (22-26) mmol/L Random Glucose 127 H (60-115) mg/dL AST 34 H (5-31) U/L Troponin I High Sens 254.0 H* D 248.4 H* (<3.5-17.0) ng/L Short CBC 11/12/24 Range/Units 13:23 WBC 8.1 (4.8-10.8) X10*3/uL Hgb 13.1 (12.0-16.0) g/dl Hct 37.8 (37.0-47.0) % Plt Count 272 (160-400) X10*3/uL BMP 11/12/24 13:23 Sodium 140 Potassium 4.0 Chloride 106 Carbon Dioxide 23 BUN 15 Creatinine 0.74 Calcium 10.0 D Liver Function 11/12/24 11/12/24 Range/Units 13:23 13:24 Total Bilirubin 0.7 Cancelled (0.0-1.0) mg/dL Direct Bilirubin 0.3 Cancelled (0.0-0.5) mg/dL AST 34 H Cancelled (5-31) U/L ALT 24 Cancelled (0-31) U/L Alkaline Phosphatase 89 Cancelled (39-117) U/L Albumin 3.8 Cancelled (3.5-5.0) g/dL All other labs normal. Imaging Additional studies: CT angio of chest reviewed positive for PE BNP was 72 High sensitive troponin 254 D-dimer 5488 Assessment and Plan (1) Pulmonary emboli: Qualifiers: Pulmonary embolism type: other Chronicity: acute Acute cor pulmonale presence: with acute cor pulmonale Qualified Code(s): I26.09 - Other pulmonary embolism with acute cor pulmonale Status: Acute Plan In short patient is positive for DVT with acute PE. I did an extensive review of the CAT scan which appeared to have large segmental and subsegmental branches with evidence of right heart strain. She will require pulmonary embolectomy. Risks benefits complications of the procedure were discussed in detail with the patient and the patient's family who was at bedside. She will be scheduled for tomorrow morning. Thank you for allowing us to assist in her care. If there are any questions or concerns please do not hesitate to contact us. Total time managing care of this patient today: 60 minutes. Procedures Date of Service Date of Service: 11/12/24
[2024-11-12 19:20] VITALS: BP 123/56; PULSE 89; RESP 26; O2SAT 92
--- NOTE | 2024-11-12 19:41 | PC.NURSE ---
Report taken from Dorothy PATEL assumed care of pt at 1900. Pt A&Ox3 sitting up in bed. SpO2 93% on 4L respirations even unlabored at this time. NSR on monitor. Pt denies pain. Heparin infusing at 14mcg/hr, PTT due at 2345. IV abx hung and infusing without difficulty. Purewick in place draining clear yellow urine. Pt NPO at midnight. Awaiting bed assignment for admission, aware of plan of care.
[2024-11-12] MEDS: Linezolid/D5W 600 MG/300 ML PIGGYBACK 300 MG IV (20:40)
[2024-11-12 21:05] VITALS: BP 114/77; PULSE 85; RESP 24; O2SAT 93
[2024-11-12] MEDS: Atorvastatin Calcium 20 MG TABLET PO (22:09)
--- NOTE | 2024-11-12 22:48 | PC.NURSE ---
Pt resting in bed skin pwd respirations even unlabored, denies pain or SOB. Repositioned for comfort, remains 92-93% on 4l NC. Purewick continues to drain clear yellow urine. Heparin continues to infuse without difficulty, no bleeding noted anywhere. Continues to await bed assignment for admission, will continue to monitor.
[2024-11-13] VITALS (32 sets, daily range): BP systolic 114–142; BP diastolic 53–85; PULSE 66–92; RESP 9–33; TEMP 36.4–37.2; O2SAT 91–98; BMI 28.6
[2024-11-13 00:15] LABS: PTT Heparin Drip 55.8 SEC (53-77.9)
[2024-11-13] MEDS: 0.9 % Sodium Chloride Flush 3 ML SYRINGE IVFLUSH ×3 (00:47→21:04)
--- NOTE | 2024-11-13 00:58 | PC.NURSE ---
Pt continues to rest in bed NAD. PTT resulted, heparin rate unchanged continues to infuse at 14units/kg/hr. VSS, SpO2 improved 95% on 4l. Pt denies pain, denies SOB. NPO for procedure in morning. Call franco w/i reach, will continue to monitor.
--- NOTE | 2024-11-13 00:59 | PC.NURSE ---
Next PTT due at 0651.
--- NOTE | 2024-11-13 03:04 | PC.NURSE ---
Pt resting in bed eyes closed, skin pwd respirations even unlabored. NSR on monitor, SpO2 improved to 97% on 4L. Heparin drip continues to infuse without difficulty.
--- NOTE | 2024-11-13 07:00 | CA_ITS ---
Transthoracic Echocardiogram Patient (Last, First, Middle): Viji Valencia, Gender: Female Date of : 1950 Age: 74 Procedure Date: 11/13/2024 Procedure Type: Transthoracic Echocardiogram Location: ER Height: 165.1 cm Weight: 76.66 kg BSA: 1.84 m2 Heart Rate: bpm BP: 118 / 59 mmHg [employer] Head: RISHI Gill MD: Julianne ORTEGA Rv Body Mechanic: Edwin Kamara MD Symptoms: Elevated trops Study Quality: Fair ECG Rhythm: Sinus Conclusions: - 1. Normal biventricular function with grade 1 LV diastolic dysfunction 2. Normal cardiac valvular Dopplers 3. Mildly elevated right ventricular systolic pressure 4. No gross pericardial effusion Findings Left Ventricle Normal left ventricular size, thickness, and systolic function. The visually estimated ejection fraction is between 60-65%. Spectral Doppler is indicative of an impaired relaxation filling pattern. E/E prime ratio is <8, consistent with normal filling pressures. Evidence suggests grade I (mild) diastolic dysfunction. Right Ventricle Normal right ventricular cavity size and systolic function. Atria The left atrium is normal in size. There is lipomatous hypertrophy of the interatrial septum. There is no evidence of interatrial shunt. The right atrium is normal in size. Aortic Valve The aortic valve structure and function is likely normal. There is no aortic valve stenosis. There is no aortic valve regurgitation. Mitral Valve There is mild anterior mitral leaflet thickening. There is mild mitral annular calcification. There is trace mitral valve regurgitation. There is no mitral valve stenosis. Pulmonic Valve The pulmonic valve was not well visualized. Tricuspid Valve There is trace tricuspid valve regurgitation. The right ventricular systolic pressure is 40 mmHg. Normal right atrial pressure. Mild pulmonary hypertension is present. Great Vessels All visible segments of the aorta are normal in size. The pulmonary artery was not well visualized. Venous The inferior vena cava is normal in size and collapses greater than 50% with inspiration. Pericardium/Pleural There is no evidence of pericardial effusion. Prior Study Comparison No prior study available for comparison. Measurements 2D Linear Measurements IVSd: 1.03 0.6-0.9/0.6-1.0 cm LVIDd: 4.05 3.9-5.3/4.2-5.9 cm LVIDd Index: 2.20 2.4-3.2/2.2-3.1 cm/m2 LVIDs: 2.47 2.0-3.6 cm LVPWd: 1.05 0.7-1.1 cm Ao Root: 3.10 2.1-3.5 cm LA Diam: 3.10 2.7-3.8/3.0-4.0 cm LAIDs Index: 1.68 1.5-2.3 cm/m2 LV Mass: 170.47 67-162/88-224 g LV Mass Index: 92.65 43-95/49-115 g/m2 LVOT Diam: 2.20 3.0+(-)1.3 cm Mitral Valve MV Pk E: 0.63 MV PK A: 1.05 MV Decel Time: 209.00 E/A: 0.60 E'Lateral: 7.51 E'Medial: 5.33 E/E' Med: 11.70 E/E' Lat: 8.30 PHT: 61.00 MVA PHT: 3.61 Decel Motley: 3.00 Aortic Valve AoV Pk Moo: 1.52 AoV Mn Moo: 0.98 AoV VTI: 0.28 AoV Pk Grad: 9.00 Aov Mn Grad: 5.00 PRABHAKAR Cont.VTI: 2.99 LVOT LVOT Pk Moo: 1.03 LVOT Mn Moo: 0.63 LVOT VTI: 0.22 LVOT Pk Grad: 4.00 LVOT Mn Grad: 2.00 LVOT Diam: 2.20 LVOT Area: 3.80 Diastolic Function MV Pk E: 0.63 MV Pk A: 1.05 E/A: 0.60 E'Medial: 5.33 E/E' Med: 11.70 E' Laterial: 7.51 E/E' Lat: 8.30 Right Ventricle TAPSE (mm): 22.40 TVS' Moo: 14.90 Tricuspid Valve TR Pk Moo: 3.04 TR Pk Grad: 37.00 RA Press: 3.00 RVSP: 40.00 Great Vessels Aorta Ao Root-2D: 3.10 2.0-3.7 cm Ao Asc: 3.20 2.1-3.4 cm Pulmonary Valve PV Pk Moo: 1.05 Peak PV Grad: 4.00 Updated in Other Vendor System with Status of Final Edwin Kamara MD electronically signed on 11/13/2024 3:55:30 PM with status of Final
--- NOTE | 2024-11-13 07:03 | PC.NURSE ---
No change in pt physical assessment, VSS, IV abx hung and infusing without difficulty, phlebo at bedside for repeat PTT draw. Report given to Saige PATEL, pt exits my care at this time.
[2024-11-13 07:35] LABS: INTERNATIONAL NORM RATIO 1.1 (0.9-1.1); Prothrombin Time 13.1 SEC (10.9-12.4)
[2024-11-13 07:36] LABS: Hematocrit 31.3 % (37.0-47.0); Hemoglobin 11.4 g/dl (12.0-16.0); Mean Corpuscular HGB Conc 36.4 g/dl (31.0-35.0); Mean Corpuscular Volume 90.7 fL (80.0-98.0); Mean Platelet Volume 9.2 fL (9.4-12.3); Platelet Count 233 X10*3/uL (160-400); Red Blood Count 3.45 X10*6/uL (4.20-5.50); Red Cell Distribution Width 13.5 % (11.0-16.0); White Blood Count 6.5 X10*3/uL (4.8-10.8)
[2024-11-13 07:42] LABS: Anion Gap 14 (12-20); Blood Urea Nitrogen 10 mg/dL (9-16); Carbon Dioxide 24 mmol/L (22-29); Chloride 110 mmol/L (96-108); Creatinine Clr Calc Pharmacy 76.6; Estimated Glomerular Filt Rate > 60; Glucose Random 91 mg/dL (60-115); Potassium 3.5 mmol/L (3.3-5.1); Sodium 144 mmol/L (135-145)
[2024-11-13] MEDS: Heparin Sodium,Porcine 5,000 UNIT/ML VIAL 3100 UNIT IVPUSH (07:52)
[2024-11-13] MEDS: 0.9 % Sodium Chloride 1,000 ML 100 ML IVCONT (09:04)
--- NOTE | 2024-11-13 09:16 | PC.NURSE ---
family at bedside requesting to speak with surgeon and cardiology, [facility] sent a loading unit operator powder charging to transport patient to [facility] stay however, atmospheric drier tender requested the patient to have bedside echo before they are transported to [facility] stay.
--- NOTE | 2024-11-13 09:49 | P.CONCA_ITS ---
History of Present Illness History of Present Illness Date of Service: 11/13/24 Requesting physician: Ethan Melendez Consult reason: other (Pulmonary embolism) Chief complaint: Hypoxia, pneumonia,elevated trops Narrative: I was consulted to see V[place] in cardiology consultation today for pulmonary embolism with hypoxemia with elevated troponin. Patient was a pleasant 74-year-old female who prior to the last admission when she was admitted with influenza as well as pneumonia was doing very well. She was very functional and active with history of hyperlipidemia with no known prior risk factors. Post pneumonia and flu she has not recovered completely and he had been pretty much sedentary with partial improvement and not been very active and functional around the house. Patient came to the hospital yesterday developed sudden onset significant shortness of breath with rapid heart rate and felt like she just had run a marathon and was not able to catch her breath. She then called her primary care physician and after speaking to the nurse in the practice she was advised to come to the emergency room. In the Emergency she was noted to have acute hypoxemic respiratory failure with tachycardia with T-wave inversions although EKG with T-wave inversions similar to the prior EKG from 2 weeks ago. Troponins were elevated but flat. She did not have any syncopal episodes. No cardiac arrest no hypotension. She was then given oxygen therapy stabilized and started on IV heparin. Overnight she has had significant improvement with no hemodynamic instability. Heart rate has settled down and oxygen levels are stable. BNP on admission was within normal limits. Cardiology consult was sought for management. We did a bedside echocardiogram which shows normal RV systolic function and RV size with upper limits normal RV systolic pressure with normal right atrial pressures. Patient says she is breathing a lot better. Patient was never prior history of venous thromboembolic disease. No family history of clotting disorder. Patient was no history of congestive heart failure or coronary artery disease in the past. Review of Systems 2 Constitutional: Constitutional: Reports weakness Eyes: Eyes: Reports no additional eye complaints Cardiovascular: Cardiovascular: Denies chest pain, Denies lightheadedness, Denies Loss of Consciousness, Reports palpitations and Reports dyspnea Respiratory: Respiratory: Reports dyspnea Gastrointestinal: Gastrointestinal: Reports no additional gastrointestinal complaints Genitourinary: Genitourinary: Reports no additional female genitourinary complaints Musculoskeletal: Musculoskeletal: Reports no additional musculoskeletal complaints Integumentary/Breasts: Skin/Breast: Reports system reviewed and no additional complaints, except as docu Neurologic: Reports weakness Endocrine: Endocrine: Reports palpitations [facility] Past Medical History Medical History HLD (hyperlipidemia) Social History Social History Household Members: Spouse Housing: House Do you presently have visiting nurse or other home services: No Alcohol intake: current Alcohol intake frequency: a few times a week Patient Tobacco Use Status: Never used Tobacco Smoked in Last 30 Days: No Use of substances other than those prescribed or required for medical reasons: No Advance Directives: No Advance Directives Information Provided: Yes Do you have a plan to hurt others: No Plan Nutrition Risks: No Nutritional Risk service: No Meds Allergies Allergy/AdvReac Type Severity Reaction Status Date / Time No Known Allergies Allergy Verified 11/12/24 12:39 Active Medications: Current Medications Acetaminophen (Acetaminophen 325 Mg Tablet) 650 mg PO Q6H PRN PRN Reason: Pain, Mild 1-3,fever,headache Atorvastatin Calcium (Atorvastatin Calcium 20 Mg Tablet) 20 mg PO BEDTIME [facility] Last Admin: 11/12/24 22:09 Dose: 20 mg Calcium Carbonate (Calcium Carbonate 750 Mg Tab.Chew) 750 mg PO Q4H PRN PRN Reason: Heartburn Guaifenesin (Guaifenesin La 600 Mg Tab.Er.12h) 600 mg PO Q12H PRN PRN Reason: Cough Heparin Sodium (Porcine) (Heparin Sodium,Porcine 5,000 Unit/Ml Vial) 3,100 unit 40 unit/kg (3100 unit) IVPUSH PROTOCOL BOLUS PRN; Protocol PRN Reason: 40 unit/kg - Heparin Protocol Last Admin: 11/13/24 07:52 Dose: 3,100 unit Heparin Sodium (Porcine) (Heparin Sodium,Porcine 5,000 Unit/Ml Vial) 6,100 unit 80 unit/kg (6100 unit) IVPUSH PROTOCOL BOLUS PRN; Protocol PRN Reason: 80 unit/kg - Heparin Protocol Linezolid (Zyvox/D5w) 600 mg in 300 mls @ 300 mls/hr IV Q12H [facility] Last Infusion: 11/12/24 21:55 Dose: Infused Piperacillin Sod/Tazobactam (Sod 4.5 gm/ Sodium Chloride) 50 mls @ 100 mls/hr IV Q6H [facility] Last Infusion: 11/13/24 07:32 Dose: Infused Heparin Sodium/Sodium Chloride (Heparin Sodium,Porcine/1/2ns) 25,000 unit in 250 mls @ 0 mls/hr IVCONT .Q0M [facility]; Protocol Last Titration: 11/13/24 07:50 Dose: 16 units/kg/hr, 12.29 mls/hr Sodium Chloride (Ns) 1,000 mls @ 100 mls/hr IVCONT .Q10H [facility] Last Admin: 11/13/24 09:04 Dose: 100 mls/hr Magnesium Hydroxide (Milk Of Magnesia 30 Ml Oral.Susp) 30 ml PO DAILY PRN PRN Reason: Constipation Melatonin (Melatonin 3 Mg Tablet) 6 mg PO BEDTIME PRN PRN Reason: Insomnia Ondansetron HCl (Ondansetron Hcl 4 Mg/2 Ml Vial) 4 mg IVPUSH Q8H PRN PRN Reason: Nausea and Vomiting Sodium Chloride (0.9 % Sodium Chloride Flush 3 Ml Syringe) 3 ml IVFLUSH QSHIFT [facility] Last Admin: 11/13/24 09:01 Dose: Not Given Home Medications ?Medication ?Instructions ?Recorded ?Confirmed ?Last Taken ?Type atorvastatin 20 mg tablet 20 mg PO BEDTIME 10/16/24 11/12/24 11/11/24 History calcium 600 mg (as 1 tab PO DAILY 10/26/24 11/12/24 11/11/24 History carbonate)-vitamin D3 5 mcg (200 unit) tablet dextromethorphan HBr 10 mg/15 mL 10 mg PO Q4H PRN Cough 11/12/24 11/12/24 Unknown History oral syrup guaifenesin 600 mg tablet, 600 mg PO Q12H PRN Cough 11/12/24 11/12/24 Unknown History extended release 12 hr (Mucinex) Physical Exam 2 Vital Signs: Vital Signs: Last Vital Signs Temp 97.5 F 11/13/24 00:57 Pulse 71 11/13/24 06:15 Resp 22 H 11/13/24 06:15 BP 118/59 L 11/13/24 06:15 Pulse Ox 98 11/13/24 06:15 O2 Del Method Room Air 11/13/24 06:15 O2 Flow Rate 4 11/13/24 03:03 BMI result Body Mass Index 28.2 Const: General: cooperative, comfortable, alert, awake and in distress mild and respiratory Nutritional Appearance: overweight O rientation/consciousness: patient oriented x3 Limitations: no limitations HEENT: Head: Yes normocephalic and Yes atraumatic Neck: Neck: Yes trachea midline, Yes supple and Yes no JVD Resp: Effort & Inspection: normal respiratory effort Auscultation: d iminished lung sounds on the right Cardio: Jugular venous distension: no JVD Palpation: normal PMI Rate: r egular rate Rhythm: regular rhythm Heart sounds: S1 normal heart sound present, S2 normal heart sound present, no click, no gallops and no murmurs GI: Auscultation: normal bowel sounds Skin: General skin exam: no rashes or lesions noted Neuro: General: patient oriented x3 and no focal motor deficits Extrem: General: Yes no clubbing, cyanosis or edema Objective Labs and Meds 11/13/24 07:09 11/13/24 07:09 Lab results: Laboratory Results - last 24 hr 11/12/24 11/12/24 11/12/24 13:23 13:24 13:25 WBC 8.1 RBC 4.13 L Hgb 13.1 Hct 37.8 MCV 91.5 MCH 31.7 MCHC 34.7 RDW 13.7 Plt Count 272 MPV 9.2 L Immature Gran % (Auto) 0.5 H Neut % (Auto) 79.5 H Lymph % (Auto) 12.4 L [place] % (Auto) 7.4 Eos % (Auto) 0.1 Baso % (Auto) 0.1 Lymph # (Auto) 1.0 L [place] # (Auto) 0.6 Eos # (Auto) 0.0 Baso # (Auto) 0.0 Abs Immat Gran (auto) 0.04 H Absolute Neuts (auto) 6.5 Absolute Nucleated RBC 0.000 Nucleated RBC % (auto) 0.0 PT 13.4 H INR 1.2 H aPTT Heparin Protocol D-Dimer High Sensitivty 5488 VBG pH VBG pCO2 VBG pO2 VBG HCO3 VBG O2 Saturation VBG Base Excess Sodium 140 Potassium 4.0 Chloride 106 Carbon Dioxide 23 Anion Gap 15 BUN 15 Creatinine 0.74 Estim Creat Clear Calc 65.1 Estimated GFR > 60 Random Glucose 127 H Lactic Acid 1.7 Calcium 10.0 D Total Bilirubin 0.7 Cancelled Direct Bilirubin 0.3 Cancelled AST 34 H Cancelled ALT 24 Cancelled Alkaline Phosphatase 89 Cancelled Troponin I High Sens 254.0 H* D B-Natriuretic Peptide 72 Total Protein 8.0 Cancelled Albumin 3.8 Cancelled Procalcitonin 0.05 Influenza Type A (PCR) NEGATIVE Influenza Type B (PCR) NEGATIVE RSV RNA Qual (PCR) NEGATIVE SARS-CoV-2 RNA (RT-PCR) NEGATIVE 11/12/24 11/12/24 11/12/24 13:35 17:03 23:49 WBC RBC Hgb Hct MCV MCH MCHC RDW Plt Count MPV Immature Gran % (Auto) Neut % (Auto) Lymph % (Auto) [place] % (Auto) Eos % (Auto) Baso % (Auto) Lymph # (Auto) [place] # (Auto) Eos # (Auto) Baso # (Auto) Abs Immat Gran (auto) Absolute Neuts (auto) Absolute Nucleated RBC Nucleated RBC % (auto) PT INR aPTT Heparin Protocol 25.4 L 55.8 D D-Dimer High Sensitivty VBG pH 7.47 H VBG pCO2 29 VBG pO2 41 VBG HCO3 21 L VBG O2 Saturation 70.0 VBG Base Excess -0.6 Sodium Potassium Chloride Carbon Dioxide Anion Gap BUN Creatinine Estim Creat Clear Calc Estimated GFR Random Glucose Lactic Acid Calcium Total Bilirubin Direct Bilirubin AST ALT Alkaline Phosphatase Troponin I High Sens 248.4 H* B-Natriuretic Peptide Total Protein Albumin Procalcitonin Influenza Type A (PCR) Influenza Type B (PCR) RSV RNA Qual (PCR) SARS-CoV-2 RNA (RT-PCR) 11/13/24 07:09 WBC 6.5 RBC 3.45 L Hgb 11.4 L Hct 31.3 L MCV 90.7 MCH 33.0 MCHC 36.4 H RDW 13.5 Plt Count 233 MPV 9.2 L Immature Gran % (Auto) Neut % (Auto) Lymph % (Auto) [place] % (Auto) Eos % (Auto) Baso % (Auto) Lymph # (Auto) [place] # (Auto) Eos # (Auto) Baso # (Auto) Abs Immat Gran (auto) Absolute Neuts (auto) Absolute Nucleated RBC 0.000 Nucleated RBC % (auto) 0.0 PT 13.1 H INR 1.1 aPTT Heparin Protocol 47.0 L D-Dimer High Sensitivty VBG pH VBG pCO2 VBG pO2 VBG HCO3 VBG O2 Saturation VBG Base Excess Sodium 144 Potassium 3.5 Chloride 110 H Carbon Dioxide 24 Anion Gap 14 BUN 10 Creatinine 0.65 Estim Creat Clear Calc 76.6 Estimated GFR > 60 Random Glucose 91 Lactic Acid Calcium 9.0 D Total Bilirubin Direct Bilirubin AST ALT Alkaline Phosphatase Troponin I High Sens B-Natriuretic Peptide Total Protein Albumin Procalcitonin Influenza Type A (PCR) Influenza Type B (PCR) RSV RNA Qual (PCR) SARS-CoV-2 RNA (RT-PCR) Imaging Radiologist's impression: Impressions Chest X-Ray 11/12/24 12:44 IMPRESSION: Progression of right lower lobe pneumonia, with improvement on the left. Continued follow-up is recommended to document resolution. Electronically signed by: Sandro Mcguire MD 11/12/2024 01:11 PM EDT Chest CTA 11/12/24 16:09 IMPRESSION: 1. Bilateral pulmonary emboli present, with moderate to heavy clot burden. Right heart strain evident. Findings meet criteria for submassive PE. 2. Right lower lobe consolidation suspicious for pneumonia, with more proximal endobronchial mucous airway plugging. 3. Patchy endobronchial mucous plugging also noted in the left lower lobe, lingula, and right middle lobe. Associated subsegmental atelectasis, consolidative opacities in the inferior left lower lobe, and posterior lingula. 4. Mild cardiomegaly with inward bowing of the intraventricular septum. Mild hepatic IVC contrast reflux. Critical findings discussed with Dr. Julianne Akhtar via phone call at 4:43 PM, 11/12/2024. Electronically signed by: Justin Argueta MD 11/12/2024 04:49 PM EDT Assessment and Plan (1) Pulmonary emboli: Qualifiers: Pulmonary embolism type: other Chronicity: acute Acute cor pulmonale presence: with acute cor pulmonale Qualified Code(s): I26.09 - Other pulmonary embolism with acute cor pulmonale Status: Acute Patient presents with sudden-onset shortness of breath with acute hypoxemic respiratory failure on admission which has been corrected. He was no episodes of syncope or hypotension. Initially when she presented she was definitely intermediate risk for submassive pulmonary embolism with RV strain noted on CT scan along with tachycardia and mildly elevated troponins although BNP was within normal limits. Subsequently with IV heparin and oxygenation she was stabilized and RV strain has resolved with no other hemodynamic instability at this point time. Patient's symptoms have improved. Echocardiogram shows normal RV function and normal RV size at this point time. She was planned to undergo pulmonary thrombectomy interventionally. At this point time I think the clinical benefit of pursuing pulmonary thrombectomy from hemodynamic perspective or RV function perspective is low. Discussed with vascular surgery about the findings of the echocardiogram and clinical findings. Vascular surgery will discuss with family about further treatment options. At this point time would continue anticoagulation switch her to direct oral anticoagulant therapy once stabilized. Continue supportive care. Management was discussed with patient and patient's family. Greater than 40 minutes was spent in managing her care. Thank you for allowing me to partake in her care Procedures Date of Service Date of Service: 11/13/24
[2024-11-13 09:53] LABS: B Type Natriuretic Peptide 198 pg/mL (<100)
[2024-11-13 10:27] LABS: Troponin-I High Sensitivity 96.1 ng/L (<3.5-17.0)
--- NOTE | 2024-11-13 10:59 | PC.NURSE ---
per Dr. Barton doppler pulses not needed prior to procedure. patient transferred to procedure room.
[2024-11-13] MEDS: fentaNYL citrate/PF 100 MCG/2 ML VIAL 25 MCG IVPUSH ×2 (11:22→12:25)
[2024-11-13] MEDS: Midazolam HCl 2 MG/2 ML VIAL 0.5 MG IVPUSH ×3 (11:22→12:25)
[2024-11-13] MEDS: Heparin Sodium,Porcine 10,000 UNIT/10 ML VIAL 5000 UNIT IVPUSH (11:30)
[2024-11-13 11:33] LABS: MRSA Nasal PCR NEGATIVE (Negative); SA Nasal PCR NEGATIVE (Negative)
[2024-11-13] MEDS: Heparin Sodium,Porcine 10,000 UNIT/10 ML VIAL 3000 UNIT IVPUSH (11:45)
--- NOTE | 2024-11-13 13:00 | HO.PM.IMPN ---
Subjective Subjective Date of Service: 11/13/24 Interval History: shortness of breath improving no chest pain minimal cough no fever Review of Systems Review of Systems: Yes all other systems are reviewed and are negative Physical Exam Vital Signs: Vital Signs: Last Vital Signs Temp 99.0 F 11/13/24 10:39 Pulse 91 11/13/24 12:46 Resp 23 H 11/13/24 12:46 BP 135/85 11/13/24 12:46 Pulse Ox 93 11/13/24 12:46 O2 Del Method Nasal Cannula 11/13/24 12:46 O2 Flow Rate 4 11/13/24 12:46 BMI result Body Mass Index 28.2 Gen: tachypneic HEENT: sclera anicteric, moist mucus membranes Neck: supple Lungs: diminished R base Heart: regular rate and rhythm, no murmurs Abd: soft, non-tender, non-distended Ext: no edema Skin: warm/well-perfused Neuro: alert and oriented x3, no focal findings Psych: appropriate affect Objective Data Active Medications Acetaminophen (Acetaminophen 325 Mg Tablet) 650 mg PO Q6H PRN PRN Reason: Pain, Mild 1-3,fever,headache Atorvastatin Calcium (Atorvastatin Calcium 20 Mg Tablet) 20 mg PO BEDTIME [facility] Last Admin: 11/12/24 22:09 Dose: 20 mg Documented By: HERMAN Calcium Carbonate (Calcium Carbonate 750 Mg Tab.Chew) 750 mg PO Q4H PRN PRN Reason: Heartburn Guaifenesin (Guaifenesin La 600 Mg Tab.Er.12h) 600 mg PO Q12H PRN PRN Reason: Cough Heparin Sodium (Porcine) (Heparin Sodium,Porcine 5,000 Unit/Ml Vial) 3,100 unit 40 unit/kg (3100 unit) IVPUSH PROTOCOL BOLUS PRN; Protocol PRN Reason: 40 unit/kg - Heparin Protocol Last Admin: 11/13/24 07:52 Dose: 3,100 unit Documented By: PHILIP Heparin Sodium (Porcine) (Heparin Sodium,Porcine 5,000 Unit/Ml Vial) 6,100 unit 80 unit/kg (6100 unit) IVPUSH PROTOCOL BOLUS PRN; Protocol PRN Reason: 80 unit/kg - Heparin Protocol Linezolid (Zyvox/D5w) 600 mg in 300 mls @ 300 mls/hr IV Q12H [facility] Last Infusion: 11/12/24 21:55 Dose: Infused Documented By: HERMAN Piperacillin Sod/Tazobactam (Sod 4.5 gm/ Sodium Chloride) 50 mls @ 100 mls/hr IV Q6H [facility] Last Infusion: 11/13/24 07:32 Dose: Infused Documented By: PHILIP Heparin Sodium/Sodium Chloride (Heparin Sodium,Porcine/1/2ns) 25,000 unit in 250 mls @ 0 mls/hr IVCONT .Q0M [facility]; Protocol Last Titration: 11/13/24 07:50 Dose: 16 units/kg/hr, 12.29 mls/hr Documented By: PHILIP Co-signed By: SIMEON Sodium Chloride (Ns) 1,000 mls @ 100 mls/hr IVCONT .Q10H [facility] Last Admin: 11/13/24 09:04 Dose: 100 mls/hr Documented By: PHILIP Magnesium Hydroxide (Milk Of Magnesia 30 Ml Oral.Susp) 30 ml PO DAILY PRN PRN Reason: Constipation Melatonin (Melatonin 3 Mg Tablet) 6 mg PO BEDTIME PRN PRN Reason: Insomnia Morphine Sulfate (Morphine Sulfate 4 Mg/Ml Cartridge) 4 mg IVPUSH Q2H PRN; Protocol PRN Reason: Pain, Severe (Pain Scale 7-10) Ondansetron HCl (Ondansetron Hcl 4 Mg/2 Ml Vial) 4 mg IVPUSH Q8H PRN PRN Reason: Nausea and Vomiting Oxycodone HCl (Oxycodone Hcl Immed Release 5 Mg Tablet) 5 mg PO Q4H PRN PRN Reason: Pain, Moderate(Pain Scale 4-6) Sodium Chloride (0.9 % Sodium Chloride Flush 3 Ml Syringe) 3 ml IVFLUSH QSHIFT [facility] Last Admin: 11/13/24 09:01 Dose: Not Given Documented By: PHILIP Non-Admin Reason: IV Running Labs 11/13/24 07:09 11/13/24 07:09 Labs: Laboratory Results - last 24 hr 11/12/24 11/12/24 11/12/24 13:23 13:24 13:25 MCV 91.5 MCH 31.7 MCHC 34.7 RDW 13.7 Plt Count 272 MPV 9.2 L Immature Gran % (Auto) 0.5 H Neut % (Auto) 79.5 H Lymph % (Auto) 12.4 L [place] % (Auto) 7.4 Eos % (Auto) 0.1 Baso % (Auto) 0.1 Lymph # (Auto) 1.0 L [place] # (Auto) 0.6 Eos # (Auto) 0.0 Baso # (Auto) 0.0 Abs Immat Gran (auto) 0.04 H Absolute Neuts (auto) 6.5 Absolute Nucleated RBC 0.000 Nucleated RBC % (auto) 0.0 PT 13.4 H INR 1.2 H aPTT Heparin Protocol D-Dimer High Sensitivty 5488 VBG pH VBG pCO2 VBG pO2 VBG HCO3 VBG O2 Saturation VBG Base Excess Anion Gap 15 Estim Creat Clear Calc 65.1 Estimated GFR > 60 Random Glucose 127 H Lactic Acid 1.7 Calcium 10.0 D Total Bilirubin 0.7 Cancelled Direct Bilirubin 0.3 Cancelled AST 34 H Cancelled ALT 24 Cancelled Alkaline Phosphatase 89 Cancelled B-Natriuretic Peptide 72 Total Protein 8.0 Cancelled Albumin 3.8 Cancelled Procalcitonin 0.05 Nasal Screen MRSA (PCR) Nasal S. aureus Screen Nasal MRSA/S.aureus Interp Influenza Type A (PCR) NEGATIVE Influenza Type B (PCR) NEGATIVE RSV RNA Qual (PCR) NEGATIVE SARS-CoV-2 RNA (RT-PCR) NEGATIVE 11/12/24 11/12/24 11/12/24 13:35 17:03 23:49 MCV MCH MCHC RDW Plt Count MPV Immature Gran % (Auto) Neut % (Auto) Lymph % (Auto) [place] % (Auto) Eos % (Auto) Baso % (Auto) Lymph # (Auto) [place] # (Auto) Eos # (Auto) Baso # (Auto) Abs Immat Gran (auto) Absolute Neuts (auto) Absolute Nucleated RBC Nucleated RBC % (auto) PT INR aPTT Heparin Protocol 25.4 L 55.8 D D-Dimer High Sensitivty VBG pH 7.47 H VBG pCO2 29 VBG pO2 41 VBG HCO3 21 L VBG O2 Saturation 70.0 VBG Base Excess -0.6 Anion Gap Estim Creat Clear Calc Estimated GFR Random Glucose Lactic Acid Calcium Total Bilirubin Direct Bilirubin AST ALT Alkaline Phosphatase B-Natriuretic Peptide Total Protein Albumin Procalcitonin Nasal Screen MRSA (PCR) Nasal S. aureus Screen Nasal MRSA/S.aureus Interp Influenza Type A (PCR) Influenza Type B (PCR) RSV RNA Qual (PCR) SARS-CoV-2 RNA (RT-PCR) 11/13/24 11/13/24 11/13/24 07:09 09:01 10:14 MCV 90.7 MCH 33.0 MCHC 36.4 H RDW 13.5 Plt Count 233 MPV 9.2 L Immature Gran % (Auto) Neut % (Auto) Lymph % (Auto) [place] % (Auto) Eos % (Auto) Baso % (Auto) Lymph # (Auto) [place] # (Auto) Eos # (Auto) Baso # (Auto) Abs Immat Gran (auto) Absolute Neuts (auto) Absolute Nucleated RBC 0.000 Nucleated RBC % (auto) 0.0 PT 13.1 H INR 1.1 aPTT Heparin Protocol 47.0 L D-Dimer High Sensitivty VBG pH VBG pCO2 VBG pO2 VBG HCO3 VBG O2 Saturation VBG Base Excess Anion Gap 14 Estim Creat Clear Calc 76.6 Estimated GFR > 60 Random Glucose 91 Lactic Acid Calcium 9.0 D Total Bilirubin Direct Bilirubin AST ALT Alkaline Phosphatase B-Natriuretic Peptide 198 H Total Protein Albumin Procalcitonin Nasal Screen MRSA (PCR) NEGATIVE Nasal S. aureus Screen NEGATIVE Nasal MRSA/S.aureus Interp SEE NOTE Influenza Type A (PCR) Influenza Type B (PCR) RSV RNA Qual (PCR) SARS-CoV-2 RNA (RT-PCR) ITS Impressions Chest X-Ray 11/12/24 12:44 IMPRESSION: Progression of right lower lobe pneumonia, with improvement on the left. Continued follow-up is recommended to document resolution. Electronically signed by: Sandro Mcguire MD 11/12/2024 01:11 PM EDT Chest CTA 11/12/24 16:09 IMPRESSION: 1. Bilateral pulmonary emboli present, with moderate to heavy clot burden. Right heart strain evident. Findings meet criteria for submassive PE. 2. Right lower lobe consolidation suspicious for pneumonia, with more proximal endobronchial mucous airway plugging. 3. Patchy endobronchial mucous plugging also noted in the left lower lobe, lingula, and right middle lobe. Associated subsegmental atelectasis, consolidative opacities in the inferior left lower lobe, and posterior lingula. 4. Mild cardiomegaly with inward bowing of the intraventricular septum. Mild hepatic IVC contrast reflux. Critical findings discussed with Dr. Julianne Akhtar via phone call at 4:43 PM, 11/12/2024. Electronically signed by: Justin Argueta MD 11/12/2024 04:49 PM EDT RP Assessment and Plan (1) Pulmonary emboli: Status: Acute Plan d2 for 74yo F with HLD, recent influenza and post-influenza PNA, presenting with acute dyspnea and found to be hypoxic from submassive PE submassive PE acute L popliteal/posterior tibial DVT - to OR with Vascular Surgery for pulmonary embolectomy today; continue heparin drip and transition to apixaban tomorrow - Cardiology consulted; bedside echocardiogram with normal RV systolic function and RV size with upper limits normal RV systolic pressure with normal right atrial pressures acute hypoxic respiratory failure - supplemental O2, wean as tolerated; currently on 4L pneumonia - MRSA negative; d/c linezolid; continue piperacillin-tazobactam 11/12-, follow BCx, trend PCT HLD - statin dispo - TBD In my clinical judgment, the patient requires continued inpatient hospitalization for the following reasons: hypoxia, heparin drip Total time managing care of this patient today: 45 minutes. Quality Stroke Does the patient have a stroke diagnosis?: No VTE Prior VTE?: No VTE Risk Level:: Medical - moderate - high VTE Device Contraindication: Treatment Not Indicated VTE Drug Contraindication: N/A - Med Ordered
--- NOTE | 2024-11-13 13:27 | W.PM.OPN ---
Operative Note Operative Note Date of Service: 11/13/24 Narrative: Operative note by [facility] Preoperative diagnosis: DVT with PE Postoperative diagnosis: Same Procedure:1. Ultrasound-guided right common femoral vein access 2. Inferior vena cavogram 3. Selective right pulmonary artery angiogram 4. Selective left pulmonary artery angiogram 5. Mechanical thrombectomy of pulmonary embolism of bilateral pulmonary artery 6. Return of blood using flow Saver system 7. Radiologic supervision and interpretation. Surgeon:Usaam Barton M.D. Business Records Manager: None Anesthesia: Local with moderate conscious sedation. Total intraservice moderate sedation time was 93 minutes. I monitored the patient's level of consciousness and physiologic status continuously throughout the procedure. Specimens: none Drains :none Estimated blood loss: Less than 50 ml Implant: None Comorbid conditions: Acute respiratory failure with hypoxia, acute hypoxic respiratory failure, leukocytosis, sepsis, right lower lobe pneumonia, acute viral syndrome., right heart strain. , Indications: Patient was noted to have submassive pulmonary embolism.. CT of the chest was reviewed and demonstrated bilateral segmental and subsegmental clots. Heparin drip was initiated immediately. Due to the clot burden the patient now presents for pulmonary embolectomy. The patient has signed the informed consent after reviewing risks, complications, benefits, and alternatives previously discussed with the patient. The patient was given the opportunity to ask any additional questions or voice any concerns. All questions were answered to the patient's satisfaction. Procedure in detail: Patient was brought to the angiography suite prior to which a time-out was called for patient identification and site verification. Bilateral groins were prepped and draped in the standard surgical fashion. Under ultrasound guidance right common femoral vein was punctured with micro puncture needle and wire. Subsequently a precision 5 [place] sheath was then placed. Bentson wire was advanced to the level of the vena cava. 4 [place] Flush catheter was brought up and parked at the level of the renal arteries. Vena cavogram was then undertaken. The patient was systemically anticoagulated with heparin 5000 units and subsequently an additional 3000 units and therapeutic ACT was achieved of 247. We then advanced a Bentson wire all the way up into the inferior vena cava to the atrial junction. We then advanced a pigtail catheter through that from the right atrium to the right ventricle into the pulmonary artery. We then readvanced the Bentson wire through this. In order to confirm appropriate positioning and no trauma to cardiac tissue we advanced an formed pigtail catheter through this.. We met no resistance. At this time we did a selective image the right main pulmonary artery and subsequently the left main pulmonary artery. We then advanced the INTRI 24 [place] sheath. Over this we then placed TRIEVER 24 large-bore catheter. We then placed a 20 small bore catheter and did subsequent embolectomy of the left segmental and subsegmental branches. This was directed towards the right pulmonary artery. We then successfully aspirated moderate clot burden. Once the syringe was filled we placed this through the flow Saver blood filtering system and returned the blood back to the patient. Several aspirations were performed until we had no thrombus return. Once this was all done completion imaging was then undertaken. No residual thrombus was noted. Catheter wire and sheath were removed. Pursestring suture was placed 10 minutes of direct pressure was held. Patient tolerated the procedure well and was returned to recovery with stable vitals. Interpretation of films: 1. Ultrasound was used to evaluate access site of the femoral vein. The femoral vein was noted to be patent with no thrombus. Ultrasound was used for visualization of needle entry. Image was saved to PACS 2. Vena cavogram demonstrated normal caliber vena cava with no evidence of thrombus. 3. Pulmonary artery imaging demonstrated - bilateral segmental and subsegmental thrombus 4. Completion imaging demonstrated excellent resolution of clot Conclusion: 1. Successful bilateral pulmonary embolectomy 2. Anticoagulation status: Continue heparin drip. Can restart formal oral anticoagulation tomorrow This note is constructed using voice recognition software. While every effort has been made to ensure accuracy, automobile racer errors may have been included. Thank you for allowing me to participate in the care of your patient. Yours sincerely, Usama Barton MD, FACS, R.P.V.I.
--- NOTE | 2024-11-13 15:07 | MHC.CLN ---
RE: CONSULT: 10# WT LOSS R/T SOB CURRENT WT 78KG (11/13/24) PREVIOUS WT 71KG (10/16/24) PT TRIGGERS FOR 10% SIGNIFICANT WT GAIN X 30 DAYS REGULAR DIET IN PLACE PT IS VERY LOW NUTRITION RISK AT THIS TIME MONITOR PO INTAKE IF PO INTAKE <25% X 3 DAYS, ADD ENSURE SUPPLEMENT BID RD TO FOLLOW WEEKLY
[2024-11-13] MEDS: Piperacillin Sodium/Tazobactam 4.5 GM in 0.9 % Sodium Chloride 100 ML IV ×2 (15:08→21:04)
--- NOTE | 2024-11-13 15:51 | PC.NURSE ---
Per Shaina Rea heparin gtt stopped and restarted at 1330 for procedure. This RN called pharmacy to report the pause. Per pharmacy next PTT in 6 hours after restart and order placed for 1930.
[2024-11-13] MEDS: Heparin Sodium,Porcine/1/2NS 25,000 UNIT/250 ML IV.SOLN 12.29 UNIT IVCONT (16:13)
[2024-11-13 20:02] LABS: PTT Heparin Drip 75.8 SEC (53-77.9)
[2024-11-13] MEDS: Atorvastatin Calcium 20 MG TABLET PO (21:04)
[2024-11-14] VITALS (15 sets, daily range): BP systolic 101–138; BP diastolic 52–86; PULSE 52–160; RESP 16–18; TEMP 36.1–37.3; O2SAT 93–97
[2024-11-14 01:14] LABS: ACT 134 Celite s (79-173)
[2024-11-14 01:15] LABS: ACT 186 Celite s (79-173)
[2024-11-14 01:15] LABS: ACT 247 Celite s (79-173)
[2024-11-14 02:00] LABS: PTT Heparin Drip 65.6 SEC (53-77.9)
[2024-11-14] MEDS: Piperacillin Sodium/Tazobactam 4.5 GM in 0.9 % Sodium Chloride 100 ML IV ×4 (02:44→21:40)
[2024-11-14 08:02] LABS: Hematocrit 30.8 % (37.0-47.0); Hemoglobin 10.4 g/dl (12.0-16.0); Mean Corpuscular HGB Conc 33.8 g/dl (31.0-35.0); Mean Corpuscular Volume 91.9 fL (80.0-98.0); Mean Platelet Volume 9.4 fL (9.4-12.3); Platelet Count 215 X10*3/uL (160-400); Red Blood Count 3.35 X10*6/uL (4.20-5.50); Red Cell Distribution Width 13.6 % (11.0-16.0); White Blood Count 5.2 X10*3/uL (4.8-10.8)
[2024-11-14 08:16] LABS: Anion Gap 10 (12-20); Blood Urea Nitrogen 7 mg/dL (9-16); Calcium 8.6 mg/dL (8.4-10.2); Carbon Dioxide 24 mmol/L (22-29); Chloride 112 mmol/L (96-108); Creatinine Clr Calc Pharmacy 74.9; Estimated Glomerular Filt Rate > 60; Glucose Random 85 mg/dL (60-115); Potassium 3.7 mmol/L (3.3-5.1); Sodium 142 mmol/L (135-145)
--- NOTE | 2024-11-14 08:19 | ECG_ITS ---
Test Reason : rapid rate Blood Pressure : */* mmHG Vent. Rate : 100 BPM Atrial Rate : 100 BPM P-R Int : 136 ms QRS Dur : 114 ms QT Int : 438 ms P-R-T Axes : 59 46 28 degrees QTcB Int : 565 ms Normal sinus rhythm Right bundle branch block Abnormal ECG When compared with ECG of 12-Nov-2024 13:38, Right bundle branch block is now Present Referred By: Ethan Melendez Electronically Signed By: KACIE FERNANDEZ MD
--- NOTE | 2024-11-14 08:23 | PC.NURSE ---
this RN at bedside to assess pt, pt had coughing fit and on monitor HR 160s sustaining SVT. pt reporting SOB and palpations. no chest pain. reporting mild chest pressure and mild h/a. [employer] called [id number], see [employer] sheet
[2024-11-14] MEDS: Adenosine 6 MG/2 ML VIAL IVPUSH ×2 (08:26→09:18)
--- NOTE | 2024-11-14 08:42 | P.PNIM_ITS ---
Subjective Subjective Date of Service: 11/14/24 Interval History: Rapid response called this AM for tachycardia, regular narrow-complex, 162, appeared to be SVT. Started after coughing fit. SaO2 94 on 1L NC. Pt c/o palpitations. BP 116/70. Vagal manuevers and carotid massage did not terminate the SVT. She was given 6 mg of adenosine and converted to sinus tachycardia with rate in 100s, BP now 134/65 and pt's symptoms resolved. Review of Systems Review of Systems: Yes all other systems are reviewed and are negative Physical Exam 2 Vital Signs: Vital Signs: Last Vital Signs Temp 97.6 F 11/14/24 07:05 Pulse 80 11/14/24 08:33 Resp 18 11/14/24 07:05 BP 134/65 11/14/24 08:33 Pulse Ox 95 11/14/24 08:33 O2 Del Method Nasal Cannula 11/14/24 08:33 O2 Flow Rate 1 11/14/24 08:33 Oxygen Flow Rate 1 11/14/24 08:33 BMI result Body Mass Index 28.6 Gen: in no acute distress HEENT: sclera anicteric, moist mucus membranes Neck: supple Lungs: inspiratory crackles R base Heart: regular, fast, no murmurs Abd: soft, non-tender, non-distended Ext: no edema Skin: warm/well-perfused Neuro: alert and oriented x3, no focal findings Psych: appropriate affect Objective Data Active Medications Acetaminophen (Acetaminophen 325 Mg Tablet) 650 mg PO Q6H PRN PRN Reason: Pain, Mild 1-3,fever,headache Atorvastatin Calcium (Atorvastatin Calcium 20 Mg Tablet) 20 mg PO BEDTIME NADIA Last Admin: 11/13/24 21:04 Dose: 20 mg Documented By: CHEYANNE Calcium Carbonate (Calcium Carbonate 750 Mg Tab.Chew) 750 mg PO Q4H PRN PRN Reason: Heartburn Guaifenesin (Guaifenesin La 600 Mg Tab.Er.12h) 600 mg PO Q12H PRN PRN Reason: Cough Heparin Sodium (Porcine) (Heparin Sodium,Porcine 5,000 Unit/Ml Vial) 3,100 unit 40 unit/kg (3100 unit) IVPUSH PROTOCOL BOLUS PRN; Protocol PRN Reason: 40 unit/kg - Heparin Protocol Last Admin: 11/13/24 07:52 Dose: 3,100 unit Documented By: PHILIP Heparin Sodium (Porcine) (Heparin Sodium,Porcine 5,000 Unit/Ml Vial) 6,100 unit 80 unit/kg (6100 unit) IVPUSH PROTOCOL BOLUS PRN; Protocol PRN Reason: 80 unit/kg - Heparin Protocol Heparin Sodium/Sodium Chloride (Heparin Sodium,Porcine/1/2ns) 25,000 unit in 250 mls @ 0 mls/hr IVCONT .Q0M [facility]; Protocol Last Titration: 11/14/24 02:50 Dose: 16 units/kg/hr, 12.29 mls/hr Documented By: CHEYANNE Co-signed By: MARIA D Piperacillin Sod/Tazobactam (Sod 4.5 gm/ Sodium Chloride) 100 mls @ 200 mls/hr IV Q6H [facility] Last Infusion: 11/14/24 08:32 Dose: 200 mls/hr Documented By: ROSS Magnesium Hydroxide (Milk Of Magnesia 30 Ml Oral.Susp) 30 ml PO DAILY PRN PRN Reason: Constipation Melatonin (Melatonin 3 Mg Tablet) 6 mg PO BEDTIME PRN PRN Reason: Insomnia Morphine Sulfate (Morphine Sulfate 4 Mg/Ml Cartridge) 4 mg IVPUSH Q2H PRN; Protocol PRN Reason: Pain, Severe (Pain Scale 7-10) Ondansetron HCl (Ondansetron Hcl 4 Mg/2 Ml Vial) 4 mg IVPUSH Q8H PRN PRN Reason: Nausea and Vomiting Oxycodone HCl (Oxycodone Hcl Immed Release 5 Mg Tablet) 5 mg PO Q4H PRN PRN Reason: Pain, Moderate(Pain Scale 4-6) Sodium Chloride (0.9 % Sodium Chloride Flush 3 Ml Syringe) 3 ml IVFLUSH QSHIFT [facility] Last Admin: 11/14/24 08:02 Dose: Not Given Documented By: ROSS Non-Admin Reason: IV Running Labs 11/14/24 07:16 11/14/24 07:16 Labs: Laboratory Results - last 24 hr 11/13/24 11/13/24 11/13/24 09:01 10:14 11:26 MCV MCH MCHC RDW Plt Count MPV Absolute Nucleated RBC Nucleated RBC % (auto) aPTT Heparin Protocol Activated Clotting Time 134 Hold Blue Top Anion Gap Estim Creat Clear Calc Estimated GFR Random Glucose Calcium B-Natriuretic Peptide 198 H Nasal Screen MRSA (PCR) NEGATIVE Nasal S. aureus Screen NEGATIVE Nasal MRSA/S.aureus Interp SEE NOTE 11/13/24 11/13/24 11/13/24 11:42 11:51 19:25 MCV MCH MCHC RDW Plt Count MPV Absolute Nucleated RBC Nucleated RBC % (auto) aPTT Heparin Protocol 75.8 D Activated Clotting Time 186 H 247 H Hold Blue Top Anion Gap Estim Creat Clear Calc Estimated GFR Random Glucose Calcium B-Natriuretic Peptide Nasal Screen MRSA (PCR) Nasal S. aureus Screen Nasal MRSA/S.aureus Interp 11/14/24 11/14/24 11/14/24 00:37 01:46 07:16 MCV 91.9 MCH 31.0 MCHC 33.8 RDW 13.6 Plt Count 215 MPV 9.4 Absolute Nucleated RBC 0.000 Nucleated RBC % (auto) 0.0 aPTT Heparin Protocol 65.6 Activated Clotting Time Hold Blue Top SEE NOTE Anion Gap 10 L Estim Creat Clear Calc 74.9 Estimated GFR > 60 Random Glucose 85 Calcium 8.6 B-Natriuretic Peptide Nasal Screen MRSA (PCR) Nasal S. aureus Screen Nasal MRSA/S.aureus Interp Microbiology Microbiology Results: Microbiology 11/12/24 13:31 Blood Culture - Preliminary Blood - Venous No growth after 24 hours. 11/12/24 13:24 Blood Culture - Preliminary Blood - Venous No growth after 24 hours. Assessment and Plan (1) Pulmonary emboli: Status: Acute Plan d3 for 74yo F with HLD, recent influenza and post-influenza PNA, presenting with acute dyspnea and found to be hypoxic from submassive PE submassive PE acute L popliteal/posterior tibial DVT - POD #1 mechanical pulmonary embolectomy today - transition heparin drip to apixaban 10 mg bid x7d then 5 mg bid for life - outpt Hematology consult for thrombophilia workup - Cardiology consulted - TTE 11/13: 1. Normal biventricular function with grade 1 LV diastolic dysfunction 2. Normal cardiac valvular Dopplers 3. Mildly elevated right ventricular systolic pressure 4. No gross pericardial effusion SVT - converted after adenosine 11/14 - likely due to pulmonary issues; monitor on telemetry acute hypoxic respiratory failure - supplemental O2, wean as tolerated; currently on 1L pneumonia - MRSA negative; d/c'ed linezolid; continue piperacillin-tazobactam 11/12-, follow BCx, trend PCT; urinary antigens for Legionella and pneumococcus pending HLD - statin dispo - will need PT + home O2 evals prior to discharge In my clinical judgment, the patient requires continued inpatient hospitalization for the following reasons: hypoxia, SVT Total time managing care of this patient today: 55 minutes. Quality Stroke Does the patient have a stroke diagnosis?: No VTE Prior VTE?: No VTE Risk Level:: Medical - moderate - high VTE Device Contraindication: Treatment Not Indicated VTE Drug Contraindication: N/A - Med Ordered
--- NOTE | 2024-11-14 09:02 | MHC.CM.PN ---
CM met with Patient at bedside. Patient lives in a house with her Significant Other/HCP/Delgado, who will transport home at time of dc. Patient is functionally independent and does not use home O2. Home/self care is Patient's goal and CM has initiated and will follow for dc planning. PCP is Dr. Marjorie Viveros.
--- NOTE | 2024-11-14 09:17 | PC.NURSE ---
on monitor HR sustaining 180s SVT. pt reporting mild chest pressure, SOB, palpations. prior to RN entering room, pt stated she was eating breakfast and it felt exhausting . [employer] called, see sheet.
[2024-11-14] MEDS: Metoprolol Tartrate 25 MG TABLET PO ×2 (09:38→19:36)
[2024-11-14] MEDS: Benzonatate 100 MG CAPSULE 200 MG PO (09:38)
[2024-11-14] MEDS: Apixaban 5 MG TABLET 10 MG PO ×2 (09:38→19:36)
[2024-11-14] MEDS: Metoprolol Tartrate 5 MG/5 ML VIAL IVPUSH (09:39)
--- NOTE | 2024-11-14 10:05 | PC.NURSE ---
Addendum entered by Katheryn Leblanc RN 11/14/24 10:43: hold dilt per MD Addendum entered by Katheryn Leblanc RN 11/14/24 10:38: pt back in NSR HR mid 60s- low 70s. TT Dr. Melendez regarding new med orders. Original Note: on monitor pt 140s SVT. Dr. Melendez at bedside, see new med orders, medicated per MAR
--- NOTE | 2024-11-14 12:03 | PM.PNCARD ---
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 No 12 lead EKG was performed. Patient responded initially to IV adenosine but had recurrent episode. Was subsequently given IV metoprolol and p.o. metoprolol but then had recurrent episodes. She was symptomatic with palpitations. Today patient was oxygenation has improved. Review of Systems Constitutional: Reports fatigue Eyes: Reports no additional eye complaints Cardiovascular: Denies chest pain, Denies lightheadedness, Denies Loss of Consciousness, Reports palpitations and Reports dyspnea Respiratory: Reports no additional respiratory complaints and Reports dyspnea Gastrointestinal: Reports no additional gastrointestinal complaints Psychiatric: Reports no additional psychiatric complaints Endocrine: Reports fatigue and Reports palpitations Physical Exam Vital Signs: Last Vital Signs Temp 97.9 F 11/14/24 11:41 Pulse 69 11/14/24 11:41 Resp 18 11/14/24 11:41 BP 118/59 L 11/14/24 11:41 Pulse Ox 94 11/14/24 11:41 O2 Del Method Room Air 11/14/24 11:41 O2 Flow Rate 1 11/14/24 09:24 Oxygen Flow Rate 1 11/14/24 09:24 BMI result Body Mass Index 28.6 Const General: cooperative, comfortable, alert, awake and in distress mild and respiratory Nutritional Appearance: overweight Orientation/consciousness: patient oriented x3 Limitations: no limitations HEENT Head: Yes normocephalic and Yes atraumatic Neck Neck: Yes trachea midline, Yes supple and Yes no JVD Resp Effort & Inspection: normal respiratory effort Auscultation: diminished lung sounds on the right Cardio Jugular venous distension: no JVD Palpation: normal PMI Rate: regular rate Rhythm: regular rhythm Heart sounds: S1 normal heart sound present, S2 normal heart sound present, no click, no gallops and no murmurs GI Auscultation: normal bowel sounds Skin General skin exam: no rashes or lesions noted Neuro General: patient oriented x3 and no focal motor deficits Extrem General: Yes no clubbing, cyanosis or edema Objective Labs and Meds 11/14/24 07:16 11/14/24 07:16 Lab results: Laboratory Results - last 24 hr 11/13/24 11/13/24 11/13/24 11:26 11:42 11:51 WBC RBC Hgb Hct MCV MCH MCHC RDW Plt Count MPV Absolute Nucleated RBC Nucleated RBC % (auto) aPTT Heparin Protocol Activated Clotting Time 134 186 H 247 H Hold Blue Top Sodium Potassium Chloride Carbon Dioxide Anion Gap BUN Creatinine Estim Creat Clear Calc Estimated GFR Random Glucose Calcium 11/13/24 11/14/24 11/14/24 19:25 00:37 01:46 WBC RBC Hgb Hct MCV MCH MCHC RDW Plt Count MPV Absolute Nucleated RBC Nucleated RBC % (auto) aPTT Heparin Protocol 75.8 D 65.6 Activated Clotting Time Hold Blue Top SEE NOTE Sodium Potassium Chloride Carbon Dioxide Anion Gap BUN Creatinine Estim Creat Clear Calc Estimated GFR Random Glucose Calcium 11/14/24 07:16 WBC 5.2 RBC 3.35 L Hgb 10.4 L Hct 30.8 L MCV 91.9 MCH 31.0 MCHC 33.8 RDW 13.6 Plt Count 215 MPV 9.4 Absolute Nucleated RBC 0.000 Nucleated RBC % (auto) 0.0 aPTT Heparin Protocol Activated Clotting Time Hold Blue Top Sodium 142 Potassium 3.7 Chloride 112 H Carbon Dioxide 24 Anion Gap 10 L BUN 7 L Creatinine 0.67 Estim Creat Clear Calc 74.9 Estimated GFR > 60 Random Glucose 85 Calcium 8.6 Progress Note: A&P Assessment and plan (1) SVT (supraventricular tachycardia): Status: Acute Assessment and Plan: 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 Twelve lead EKG during these episodes. Patient has had prior episode of fast heart rate under stressful situation although never been worked up in the past. For now given recurrent SVT I would suggest that I would start on Cardizem drip till she stabilizes and response to oral drugs. If she persists with significant SVT episodes, consider ablation although this is highly unusual. (2) Pulmonary emboli: Status: Acute Assessment and Plan: Submassive pulmonary embolism with no RV strain on echocardiogram from yesterday. Oxygenation has improved and status post percutaneous pulmonary thrombectomy. Oral anticoagulation therapy should be initiated. Will follow with you Time Spent With Patient Time: Total time managing care of this patient today ____ minutes. Progress Note: Quality Stroke Does the patient have a stroke diagnosis?: No Procedures Date of Service Date of Service: 11/14/24
--- NOTE | 2024-11-14 12:32 | PC.NURSE ---
This RN and PT at bedside. pt was able to ambulate to bathroom with steady gait standby assist. HR sustained 70s-80s NSR during this time. no episodes of SVT. notified. pt also weaned to RA with good success, o2 94%
[2024-11-14] MEDS: 0.9 % Sodium Chloride Flush 3 ML SYRINGE IVFLUSH (16:31)
[2024-11-14] MEDS: dilTIAZem HCL 125 MG in 0.9 % Sodium Chloride 100 ML IVCONT (17:13)
--- NOTE | 2024-11-14 17:24 | PC.NURSE ---
Addendum entered by Katheryn Leblanc RN 11/14/24 18:01: pts back in NSR with HR in 80s. per dr. kraus decrease dilt gtt to 5mg/hr, see MAR Original Note: 1700 on monitor pt back in SVT HR 150s-160s. reporting palpations, no SOB, CP or chest pressure. Dr kraus notified. per start dilt drip, see MAR
[2024-11-14] MEDS: Atorvastatin Calcium 20 MG TABLET PO (19:37)
[2024-11-15] VITALS (15 sets, daily range): BP systolic 106–137; BP diastolic 51–72; PULSE 56–146; RESP 16–20; TEMP 36.1–36.9; O2SAT 88–98
--- NOTE | 2024-11-15 02:59 | PC.NURSE ---
Patient with x2 episodes of non sustained SVT at start of shift. HR up to 170s. Patient symptomatic with chest pain and pressure. Patient back to SR in the 90s with no intervention. MD notified. PO Metoprol given. Cardizem gtt increased to max 15mg/hr rate. Within a few hours, patients HR in the high 50s. Cardizem gtt stopped. MD notified. Patients bp WNL.
[2024-11-15] MEDS: Piperacillin Sodium/Tazobactam 4.5 GM in 0.9 % Sodium Chloride 100 ML IV ×2 (03:28→09:03)
[2024-11-15 08:19] LABS: Hematocrit 30.6 % (37.0-47.0); Hemoglobin 10.5 g/dl (12.0-16.0); Mean Corpuscular HGB Conc 34.3 g/dl (31.0-35.0); Mean Corpuscular Hemoglobin 31.5 pg (27.0-33.0); Mean Corpuscular Volume 91.9 fL (80.0-98.0); Mean Platelet Volume 9.2 fL (9.4-12.3); Platelet Count 224 X10*3/uL (160-400); Red Blood Count 3.33 X10*6/uL (4.20-5.50); Red Cell Distribution Width 13.5 % (11.0-16.0); White Blood Count 4.9 X10*3/uL (4.8-10.8)
[2024-11-15 08:34] LABS: Anion Gap 12 (12-20); Blood Urea Nitrogen 8 mg/dL (9-16); Calcium 8.6 mg/dL (8.4-10.2); Carbon Dioxide 24 mmol/L (22-29); Chloride 111 mmol/L (96-108); Creatinine Clr Calc Pharmacy 71.7; Estimated Glomerular Filt Rate > 60; Glucose Random 97 mg/dL (60-115); Potassium 3.5 mmol/L (3.3-5.1); Sodium 143 mmol/L (135-145)
[2024-11-15 08:50] LABS: Procalcitonin 0.04 ng/mL
[2024-11-15] MEDS: Metoprolol Tartrate 25 MG TABLET PO ×4 (09:00→22:11)
[2024-11-15] MEDS: Apixaban 5 MG TABLET 10 MG PO ×2 (09:00→21:23)
[2024-11-15] MEDS: Benzonatate 100 MG CAPSULE 200 MG PO ×2 (09:03→17:55)
[2024-11-15] MEDS: 0.9 % Sodium Chloride Flush 3 ML SYRINGE IVFLUSH ×2 (09:05→17:58)
--- NOTE | 2024-11-15 09:57 | PM.PNCARD ---
Subjective Subjective Date of Service: 11/15/24 Principal diagnosis: PE, SVT Interval history: patient says since last night her cardiac arrhythmias as subsided and she is not having much palpitations. Her breathing is much improved and she was breathing well without oxygen. Hemodynamically stable. Review of Systems Constitutional: Reports weakness Eyes: Reports no additional eye complaints Cardiovascular: Denies chest pain, Denies palpitations and Denies orthopnea Respiratory: Reports cough Gastrointestinal: Reports no additional gastrointestinal complaints Reports weakness Psychiatric: Reports no additional psychiatric complaints Endocrine: Denies palpitations Physical Exam Vital Signs: Last Vital Signs Temp 96.9 F 11/15/24 07:08 Pulse 67 11/15/24 09:00 Resp 17 11/15/24 07:08 BP 128/61 11/15/24 09:00 Pulse Ox 96 11/15/24 07:08 O2 Del Method Nasal Cannula 11/15/24 07:08 O2 Flow Rate 1 11/15/24 07:08 Oxygen Flow Rate 1 11/14/24 09:24 BMI result Body Mass Index 28.6 Const General: cooperative, comfortable, alert, awake and in distress mild and respiratory Nutritional Appearance: overweight Orientation/consciousness: patient oriented x3 Limitations: no limitations HEENT Head: Yes normocephalic and Yes atraumatic Neck Neck: Yes trachea midline, Yes supple and Yes no JVD Resp Effort & Inspection: normal respiratory effort Auscultation: diminished lung sounds on the right Cardio Jugular venous distension: no JVD Palpation: normal PMI Rate: regular rate Rhythm: regular rhythm Heart sounds: S1 normal heart sound present, S2 normal heart sound present, no click, no gallops and no murmurs GI Auscultation: normal bowel sounds Skin General skin exam: no rashes or lesions noted Neuro General: patient oriented x3 and no focal motor deficits Extrem General: Yes no clubbing, cyanosis or edema Objective Labs and Meds 11/15/24 08:03 11/15/24 08:03 Lab results: Laboratory Results - last 24 hr 11/15/24 08:03 WBC 4.9 RBC 3.33 L Hgb 10.5 L Hct 30.6 L MCV 91.9 MCH 31.5 MCHC 34.3 RDW 13.5 Plt Count 224 MPV 9.2 L Absolute Nucleated RBC 0.000 Nucleated RBC % (auto) 0.0 Sodium 143 Potassium 3.5 Chloride 111 H Carbon Dioxide 24 Anion Gap 12 BUN 8 L Creatinine 0.70 Estim Creat Clear Calc 71.7 Estimated GFR > 60 Random Glucose 97 Calcium 8.6 Procalcitonin 0.04 Progress Note: A&P Assessment and plan (1) SVT (supraventricular tachycardia): Status: Acute Assessment and Plan: SVT which is finally controlled on IV Cardizem. Continue p.o. metoprolol and overlap p.o. dosing with IV Cardizem drip and gradually withdraw Cardizem drip. I would increase metoprolol 25 mg q.6 hours. Continues full disclosure cardiac telemetry. Avoidance of stimulants. If needed bronchodilators should be pulmonary specific such as Xopenex. (2) Pulmonary emboli: Status: Acute Assessment and Plan: Pulmonary emboli status post pulmonary thrombectomy. Patient was doing well oxygen requirement is significantly improved. Continue full oral anticoagulation. Will sign of the case and follow with you and reconsult if needed. Time Spent With Patient Time: Total time managing care of this patient today ____ minutes. Progress Note: Quality Stroke Does the patient have a stroke diagnosis?: No Procedures Date of Service Date of Service: 11/15/24
--- NOTE | 2024-11-15 10:52 | HO.PM.IMPN ---
Subjective Subjective Date of Service: 11/15/24 Interval History: yesterday morning diltiazem never started as pt converted on own from SVT back to NSR had another episode of SVT at 17:00 and got started on diltiazem drip; converted to NSR around 18:00 and had 1 more episode around 20:00 off diltiazem drip now in NSR in 60s weaned off O2 coughing 2 episodes diarrhea this AM Review of Systems Review of Systems: Yes all other systems are reviewed and are negative Physical Exam Vital Signs: Vital Signs: Last Vital Signs Temp 96.9 F 11/15/24 07:08 Pulse 67 11/15/24 09:00 Resp 17 11/15/24 07:08 BP 128/61 11/15/24 09:00 Pulse Ox 96 11/15/24 07:08 O2 Del Method Nasal Cannula 11/15/24 07:08 O2 Flow Rate 1 11/15/24 07:08 Oxygen Flow Rate 1 11/14/24 09:24 BMI result Body Mass Index 28.6 Gen: in no acute distress HEENT: sclera anicteric, moist mucus membranes Neck: supple Lungs: a few rhonchi R base Heart: regular, no murmurs Abd: soft, non-tender, non-distended Ext: no edema Skin: warm/well-perfused Neuro: alert and oriented x3, no focal findings Psych: appropriate affect Objective Data Active Medications Acetaminophen (Acetaminophen 325 Mg Tablet) 650 mg PO Q6H PRN PRN Reason: Pain, Mild 1-3,fever,headache Apixaban (Apixaban 5 Mg Tablet) 10 mg PO BID NADIA Stop: 11/20/24 21:01 Last Admin: 11/15/24 09:00 Dose: 10 mg Documented By: ROSS Atorvastatin Calcium (Atorvastatin Calcium 20 Mg Tablet) 20 mg PO BEDTIME NADIA Last Admin: 11/14/24 19:37 Dose: 20 mg Documented By: CHEYANNE Benzonatate (Benzonatate 100 Mg Capsule) 200 mg PO TID PRN PRN Reason: Cough Last Admin: 11/15/24 09:03 Dose: 200 mg Documented By: ROSS Calcium Carbonate (Calcium Carbonate 750 Mg Tab.Chew) 750 mg PO Q4H PRN PRN Reason: Heartburn Guaifenesin (Guaifenesin La 600 Mg Tab.Er.12h) 600 mg PO Q12H PRN PRN Reason: Cough Guaifenesin/Dextromethorphan (Guaifenesin Dm 100/10/5 Ml 5 Ml Syrup) 5 ml PO Q4H PRN PRN Reason: Cough Piperacillin Sod/Tazobactam (Sod 4.5 gm/ Sodium Chloride) 100 mls @ 200 mls/hr IV Q6H [facility] Last Infusion: 11/15/24 10:07 Dose: Infused Documented By: ROSS Diltiazem HCl 125 mg/ Sodium (Chloride) 125 mls @ 0 mls/hr IVCONT .Q0M [facility]; Protocol Last Titration: 11/14/24 21:04 Dose: 0 mg/hr, 0 mls/hr Documented By: CHEYANNE Magnesium Hydroxide (Milk Of Magnesia 30 Ml Oral.Susp) 30 ml PO DAILY PRN PRN Reason: Constipation Melatonin (Melatonin 3 Mg Tablet) 6 mg PO BEDTIME PRN PRN Reason: Insomnia Metoprolol Tartrate (Metoprolol Tartrate 25 Mg Tablet) 25 mg PO BID [facility]; Protocol Last Admin: 11/15/24 09:00 Dose: 25 mg Documented By: ROSS Morphine Sulfate (Morphine Sulfate 4 Mg/Ml Cartridge) 4 mg IVPUSH Q2H PRN; Protocol PRN Reason: Pain, Severe (Pain Scale 7-10) Ondansetron HCl (Ondansetron Hcl 4 Mg/2 Ml Vial) 4 mg IVPUSH Q8H PRN PRN Reason: Nausea and Vomiting Oxycodone HCl (Oxycodone Hcl Immed Release 5 Mg Tablet) 5 mg PO Q4H PRN PRN Reason: Pain, Moderate(Pain Scale 4-6) Sodium Chloride (0.9 % Sodium Chloride Flush 3 Ml Syringe) 3 ml IVFLUSH QSHIFT [facility] Last Admin: 11/15/24 09:05 Dose: 3 ml Documented By: ROSS Labs 11/15/24 08:03 11/15/24 08:03 Labs: Laboratory Results - last 24 hr 11/15/24 08:03 MCV 91.9 MCH 31.5 MCHC 34.3 RDW 13.5 Plt Count 224 MPV 9.2 L Absolute Nucleated RBC 0.000 Nucleated RBC % (auto) 0.0 Anion Gap 12 Estim Creat Clear Calc 71.7 Estimated GFR > 60 Random Glucose 97 Calcium 8.6 Procalcitonin 0.04 Microbiology Microbiology Results: Microbiology 11/12/24 13:31 Blood Culture - Preliminary Blood - Venous No growth after 48 hours. 11/12/24 13:24 Blood Culture - Preliminary Blood - Venous No growth after 48 hours. Assessment and Plan (1) Pulmonary emboli: Status: Acute Plan [id number] 74yo F with HLD, recent influenza and post-influenza PNA, presenting with acute dyspnea and found to be hypoxic from submassive PE submassive PE acute L popliteal/posterior tibial DVT - POD #2 mechanical pulmonary embolectomy - transitioned from heparin drip to apixaban 10 mg bid x7d then 5 mg bid for life - outpt Hematology consult for thrombophilia workup - Cardiology consulted; TTE 11/13: 1. Normal biventricular function with grade 1 LV diastolic dysfunction 2. Normal cardiac valvular Dopplers 3. Mildly elevated right ventricular systolic pressure 4. No gross pericardial effusion SVT - multiple episodes 11/14 requiring adenosine, IV/PO metoprolol, then ultimately IV diltiazem drip - off IV diltiazem drip now; increase PO metoprolol to 25 mg q6h - likely due to pulmonary issues; monitor on telemetry while ambulating acute hypoxic respiratory failure - resolved; encourage IS pneumonia - MRSA negative; d/c'ed linezolid; piperacillin-tazobactam 11/12-11/15, amoxicillin-clavulanate 11/15-11/19, BCx negative, PCT low; urinary antigens for Legionella and pneumococcus pending diarrhea - check GI panel + Cdiff PCR HLD - statin dispo - home O2 eval prior to d/c In my clinical judgment, the patient requires continued inpatient hospitalization for the following reasons: hypoxia, SVT Total time managing care of this patient today: 45 minutes. Quality Stroke Does the patient have a stroke diagnosis?: No VTE Prior VTE?: No VTE Risk Level:: Medical - moderate - high VTE Device Contraindication: Treatment Not Indicated VTE Drug Contraindication: N/A - Med Ordered
[2024-11-15] MEDS: Amoxicillin/Potassium Clav 875 MG TABLET PO ×2 (11:56→22:11)
[2024-11-15 12:24] LABS: CDiff Gene PCR NEGATIVE (Negative)
[2024-11-15] MEDS: dilTIAZem HCL 50 MG/10 ML VIAL 10 MG IVPUSH (12:46)
[2024-11-15 13:23] LABS: Adenovirus F 40/41 Not Detected (Not Detect.); Astrovirus Not Detected (Not Detect.); Campylobacter Not Detected (Not Detect.); Cryptosporidium Not Detected (Not Detect.); Cyclospora cayetanensis Not Detected (Not Detect.); E. coli EAEC Not Detected (Not Detect.); E. coli EPEC Not Detected (Not Detect.); E. coli ETEC Not Detected (Not Detect.); E. coli STEC Not Detected (Not Detect.); Entamoeba histolytica Not Detected (Not Detect.); Giardia lamblia Not Detected (Not Detect.); Norovirus GI/GII Not Detected (Not Detect.); Plesiomonas shigelloides Not Detected (Not Detect.); Rotavirus A Not Detected (Not Detect.); Salmonella Not Detected (Not Detect.); Sapovirus Not Detected (Not Detect.); Shigella sp./EIEC Not Detected (Not Detect.); Vibrio Not Detected (Not Detect.); Vibrio Cholerae Not Detected (Not Detect.); Yersinia enterocolitica Not Detected (Not Detect.)
--- NOTE | 2024-11-15 14:00 | PC.NURSE ---
on monitor pt in SVT HR 150s-160s at 1240. reporting SOB and palpations. O2 high 90s on RA. no CP or chest pressure. no repsonse to vagal maneuver. Dr recinos at bedside. medicated per OCT. dilt gtt restarted at 10mg/hr. pt back in NSR at 1246, HR in to 60s sustaining. per dr. recinos gtt decreased to 5mg/hr, stop gtt if HR continues sustaining. gtt paused per OCT.
[2024-11-15] MEDS: Loperamide HCl 2 MG CAPSULE PO (17:55)
[2024-11-15] MEDS: Melatonin 3 MG TABLET 6 MG PO (21:22)
[2024-11-15] MEDS: Atorvastatin Calcium 20 MG TABLET PO (21:23)
[2024-11-16 03:12] VITALS: BP 115/58; PULSE 65; RESP 20; TEMP 36.2; O2SAT 97
[2024-11-16 05:08] VITALS: BP 110/60; PULSE 62
[2024-11-16] MEDS: Metoprolol Tartrate 25 MG TABLET PO ×2 (05:08→11:59)
[2024-11-16 07:45] VITALS: BP 112/74; PULSE 63; RESP 17; TEMP 36.9; O2SAT 97
[2024-11-16] MEDS: Apixaban 5 MG TABLET 10 MG PO (08:20)
[2024-11-16] MEDS: Loperamide HCl 2 MG CAPSULE PO (08:21)
[2024-11-16] MEDS: 0.9 % Sodium Chloride Flush 3 ML SYRINGE IVFLUSH (08:22)
--- NOTE | 2024-11-16 09:51 | PM.PNCARD ---
Subjective Subjective Date of Service: 11/16/24 Principal diagnosis: PE, SVT Interval history: She states she feels okay. Also discussed with family at the bedside. No new cardiac concerns. Review of Systems Review of Systems Yes all other systems are reviewed and are negative Constitutional: Reports as per HPI and Reports no additional constitutional complaints Eyes: Reports as per HPI and Denies no additional eye complaints Denies system reviewed and no additional complaints, except as documented and Reports as per HPI Cardiovascular: Reports as per HPI, Reports no additional cardiovascular complaints, Denies acrocyanosis, Denies cool extremities, Denies chest pain, Denies leg edema, Denies lightheadedness, Denies palpitations and Denies dyspnea Respiratory: Reports as per HPI, Denies no additional respiratory complaints and Denies dyspnea Gastrointestinal: Reports as per HPI and Denies no additional gastrointestinal complaints Genitourinary: Reports as per HPI Musculoskeletal: Reports no additional musculoskeletal complaints and Reports as per HPI Skin/Breast: Reports system reviewed and no additional complaints, except as docu Reports system reviewed and no additional complaints, except as documented and Reports as per HPI Psychiatric: Reports no additional psychiatric complaints and Reports as per HPI Endocrine: Reports no additional endocrine complaints, Reports as per HPI and Denies palpitations Hematologic/Lymphatic: Reports no additional hematologic/lymphatic complaints and Reports as per HPI Allergic/Immunologic: Reports no additional allergic/immunologic complaints and Reports as per HPI Physical Exam Vital Signs: Last Vital Signs Temp 98.4 F 11/16/24 07:45 Pulse 63 11/16/24 07:45 Resp 17 11/16/24 07:45 BP 112/74 11/16/24 07:45 Pulse Ox 97 11/16/24 07:45 O2 Del Method Room Air 11/16/24 07:45 O2 Flow Rate 2 11/16/24 03:12 Oxygen Flow Rate 1 11/14/24 09:24 BMI result Body Mass Index 28.6 Const General: comfortable and no acute distress Orientation/consciousness: patient oriented x3 HEENT Other: Unremarkable Head: Yes normal to inspection Neck Neck: Yes normal visual inspection Chest Chest palpation & inspection: normal inspection of the chest Resp Auscultation: clear to auscultation bilaterally Cardio Palpation: normal PMI Heart sounds: S1 normal heart sound present, S2 normal heart sound present, no gallops, no murmurs and no rubs GI Palpation (GI): Soft to palpation Back/Spine/Pelvis Other: unremarkable Skin General skin exam: no rashes or lesions noted Neuro General: patient oriented x3 Extrem General: Yes normal to inspection Psych Mental Status: mental status grossly normal Objective Labs and Meds 11/15/24 08:03 11/15/24 08:03 Lab results: Laboratory Results - last 24 hr 11/15/24 11/15/24 11:28 11:29 Stl C. cayetanensis PCR Not Detected Stool Rotavirus A PCR Not Detected Stl Adenov F 40/41 PCR Not Detected Stool Astrovirus (PCR) Not Detected Stool Campylobacter PCR Not Detected Stool Cryptosporidium PCR Not Detected Stl Sh Tox Pr E STEC PCR Not Detected Stool E coli O157 PCR Not applicable Stl Enterotoxigenic E PCR Not Detected Stool EPEC (PCR) Not Detected Stool EAEC (PCR) Not Detected Stl E. histolytica PCR Not Detected Stool Giardia Lamblia PCR Not Detected Stl P. shigelloides PCR Not Detected Stool Salmonella PCR Not Detected Stool Sapovirus (PCR) Not Detected Stl Shigella/EIEC PCR Not Detected St Y.enterocolitica PCR Not Detected Stool Vibrio (PCR) Not Detected Stl Vibrio cholerae PCR Not Detected Stl Norovirus GI/GII PCR Not Detected C. difficile Tox B Gene NEGATIVE Progress Note: A&P Assessment and plan (1) SVT (supraventricular tachycardia): Status: Acute (2) Pulmonary emboli: Status: Acute Plan Supraventricular tachycardia in the context of pulmonary embolism requiring thrombectomy. Also recent influenza. She has been free of any arrhythmias on telemetry for the last 24-36 hours. Continue beta-blockers but frequency can be twice a day. Anticoagulation for pulmonary embolism. We will need to schedule follow-up appointment in clinic. Subsequently, can plan a Holter monitor. Family questioning how long she needs to continue beta-blockers and my recommendation is to take it at least for the foreseeable future and then we can decide if she needs long-term. Time Spent With Patient Time: Total time managing care of this patient today ____ minutes. Progress Note: Quality Stroke Does the patient have a stroke diagnosis?: No Procedures Date of Service Date of Service: 11/16/24
[2024-11-16 11:40] VITALS: BP 108/55; PULSE 73; RESP 17; TEMP 36.7; O2SAT 93
[2024-11-16] MEDS: Amoxicillin/Potassium Clav 875 MG TABLET PO (11:59)
--- NOTE | 2024-11-16 13:03 | P.DS_ITS ---
DS: Providers Provider Date of Service: 11/16/24 Date of admission: 11/12/24 15:55 Date of discharge: 11/16/24 Primary care physician: Marjorie Viveros MD Consults: 11/12/24 17:00 Consult to Vascular Surgery Routine Consulting Provider: [facility] Vascular Services Reason for consultation: Submassive bilateral PE 11/12/24 17:05 Consult to Cardiology Routine Consulting Provider: [facility] Cardiovascular Specialists Reason for consultation: Submassive PE with right heart strain DS: Diagnosis Discharge Diagnosis (1) SVT (supraventricular tachycardia): Status: Acute (2) Pulmonary emboli: Status: Acute DS: Summary Hospital Course Hospital Course: 74-year-old female with a PMH significant for?HLD who presents to the ED with?worsening SOB and difficulty breathing since this morning. Pt was recently admitted to the hospital on 10/26-10/29 where she was treated for pneumonia in the setting of recent influenza type a infection (diagnosed on 10/16/2024). Pt was treated with IV azithromycin and ceftriaxone in the hospital and sent home on cefpodoxime 200 mg b.i.d. x4 days. Pt reports felt better the week after discharge and had uneventful one-week follow-up with PCP. This week pt sates thought was getting better but might have plateaued, until this morning when she awoke with significantly worsened SOB and difficulty breathing. Also complains of occasional productive cough, palpitations, and chest tightness associated with cough and deep breathing. Denies chest pain or pressure. Pt denies any lower leg edema or calf tenderness. No fever, chills, nausea, vomiting, abdominal pain. In the ED pt was tachycardic up to 125, tachypneic up to 24, and hypertensive up to 157/79, satting at 81% on RA. Labs were significant for troponin 254.0 and D-dimer 5488, otherwise grossly unremarkable and around baseline for pt. No leukocytosis. Stable H&H. No significant electrolyte abnormalities. Renal function WNL. Lactic acid WNL. Liver function largely WNL. Tested negative for flu, COVID, RSV. CXR showed progression of right lower lobe pneumonia with improvement on the left. EKG demonstrated sinus tachycardia of [address] de pressions in inferolateral leads, similar to prior. Pt was treated with IVF, hydrocortisone, vancomycin, Zosyn, and doxy. Pt will be admitted to the hospital for treatment and further evaluation of acute hypoxic respiratory failure in the setting of worsening right lower lobe pneumonia with sepsis that failed outpatient therapy. CTA of chest positive for bilateral pulmonary emboli with moderate to heavy clot burden, right heart strain, and findings meeting criteria for submassive PE. Also showed right lower lobe consolidation suspicious for pneumonia, and with bilateral endobronchial mucous airway plugging. Will start pt on heparin drip, echocardiogram demonstrated normal RV function normal RV size on admission. Ultrasound of right lower extremity failed to demonstrate any acute thrombosis. Left popliteal vein demonstrated acute DVT. Hospital Course Patient admitted to telemetry and seen in consultation by vascular surgery. On 11/13/2024 patient underwent mechanical thrombectomy of pulmonary artery embolisms of bilateral pulmonary arteries without issue. She was subsequently transitioned off the heparin drip to oral Eliquis. And immediate postprocedure. Patient developed a SVT of AVNRT type. Seen in consultation by Cardiology and placed on a Cardizem drip. Eventually Cardizem drip was weaned off in favor of oral metoprolol. At the time of discharge patient has with been without episodes of SVT for greater than 36 hours. Discussed with Cardiology. Plan is to DC home on metoprolol 25 q.6 hours and follow up as outpatient in office to discuss possibility of ablation. She will be continued on the Eliquis load and then Eliquis daily and follow up with the PCP for further treatment and diagnostic. At this point in time she is medically acceptable for discharge Time Attestation Discharge Coordination Time (in mins): 35 Quality: Safe Use of Opioids Does Pt have an Active Cancer Diagnosis on the Problem List?: No Quality: Stroke Does the patient have a stroke diagnosis?: No Physical Exam Vital Signs: Vital Signs: Last Vital Signs Temp 98.0 F 11/16/24 11:40 Pulse 73 11/16/24 11:40 Resp 17 11/16/24 11:40 BP 108/55 L 11/16/24 11:40 Pulse Ox 93 11/16/24 11:40 O2 Del Method Room Air 11/16/24 11:40 O2 Flow Rate 2 11/16/24 03:12 Oxygen Flow Rate 1 11/14/24 09:24 BMI result Body Mass Index 28.6 Const: Other: Awake alert no acute distress Resp: Other: Clear to auscultation bilaterally no rales rhonchi or wheezes Cardio: Other: No S4; positive S1-S2; no S3 murmurs rubs or gallops GI: Other: Soft nontender nondistended normoactive bowel sounds Extrem: Other: No edema bilaterally DS: Data Data Completed and Pending Labs on day of discharge: Laboratory Results - last 24 hr 11/15/24 11:28 Stl C. cayetanensis PCR Not Detected Stool Rotavirus A PCR Not Detected Stl Adenov F 40/41 PCR Not Detected Stool Astrovirus (PCR) Not Detected Stool Campylobacter PCR Not Detected Stool Cryptosporidium PCR Not Detected Stl Sh Tox Pr E STEC PCR Not Detected Stool E coli O157 PCR Not applicable Stl Enterotoxigenic E PCR Not Detected Stool EPEC (PCR) Not Detected Stool EAEC (PCR) Not Detected Stl E. histolytica PCR Not Detected Stool Giardia Lamblia PCR Not Detected Stl P. shigelloides PCR Not Detected Stool Salmonella PCR Not Detected Stool Sapovirus (PCR) Not Detected Stl Shigella/EIEC PCR Not Detected St Y.enterocolitica PCR Not Detected Stool Vibrio (PCR) Not Detected Stl Vibrio cholerae PCR Not Detected Stl Norovirus GI/GII PCR Not Detected Preliminary micro results at discharge 11/12/24 13:31 Blood Culture - Preliminary Blood - Venous No growth after 48 hours. 11/12/24 13:24 Blood Culture - Preliminary Blood - Venous No growth after 48 hours. Discharge Plan Discharge Anticipated Discharge Date/Time: 11/16/24 12:51 Patient Disposition: Home, Self-Care Discharge Diagnosis: Right lower lobe pneumonia Referrals: Marjorie Viveros MD [Primary Care Provider] - 1 Week Discharge Medications: New amoxicillin-pot clavulanate 875-125 mg Tablet 1 tab PO Q12H Qty: 20 0RF Eliquis 5 mg tablet 5 mg PO BID Qty: 60 3RF Rx Instructions: To start a.m. 11/21/2024 metoprolol tartrate 25 mg Tablet 25 mg PO Q6H Qty: 120 0RF Protocol: Hold for SBP/HR < HOLD for SBP < : 90 HOLD for HR < : 60 Eliquis 5 mg tablet 10 mg PO BID Qty: 18 0RF Continued calcium carbonate-vitamin D3 600 mg-5 mcg (200 unit) Tablet 1 tab PO DAILY guaifenesin [Mucinex] 600 mg Tablet Extended Release 12hr 600 mg PO Q12H PRN (Reason: Cough) dextromethorphan HBr 10 mg/15 mL Syrup 10 mg PO Q4H PRN (Reason: Cough) atorvastatin 20 mg tablet 20 mg PO BEDTIME Discharge Orders: Discharge Order (Routine); Ordered 11/16/24 Ordered By: Henri Dimas Diet: Advance to usual diet Activity on Discharge: As tolerated Stand Alone Forms: Patient Portal Discharge page Print Language: Slovenian Care Plan Goals: Take Eliquis 2 tabs twice a day for 5 days then 1 tab twice daily starting November 21. Complete course of Augmentin as ordered. Add metoprolol 25 mg every 6 hours until seen by Cardiology Health Concerns: Follow up with Cardiology. Dr. Kamara's office will call with an appointment Plan of Treatment: Continue all other medicines as taken prior to hospitalization Assessment: See discharge summary
--- NOTE | 2024-11-16 13:13 | MHC.CM.PN ---
Pt has been medically cleared for DC, She will go home via family transport, plan is self care.
--- NOTE | 2024-11-16 13:15 | HO.VASCPN ---
Subjective Subjective Date of Service: 11/16/24 Interval history: Viji is doing well today. She is OOB in the chair. She does not require oxygen. She denies any shortness of breath, diff breathing, and CP. She states she is feeling much better since Saturday. She states she has been continuing with runs of SVT, but denies any concerns today. Physical Exam Vital Signs: Vital Signs: Last Vital Signs Temp 98.0 F 11/16/24 11:40 Pulse 73 11/16/24 11:40 Resp 17 11/16/24 11:40 BP 108/55 L 11/16/24 11:40 Pulse Ox 93 11/16/24 11:40 O2 Del Method Room Air 11/16/24 11:40 O2 Flow Rate 2 11/16/24 03:12 Oxygen Flow Rate 1 11/14/24 09:24 BMI result Body Mass Index 28.6 Const: General: comfortable and no acute distress Orientation/consciousness: patient oriented x3 HEENT: Ears: hearing grossly normal bilaterally Resp: Effort & Inspection: normal respiratory effort and able to speak in complete sentences Auscultation: clear to auscultation bilaterally Cardio: Rate: regular rate Rhythm: regular rhythm Heart sounds: S1 normal heart sound present and S2 normal heart sound present Bruits: no abdominal aortic bruits, no carotid bruits, no femoral bruits and no renal bruits GI: Palpation (GI): No Abdominal aortic bruit present : Other: Right groin wound: C/D/I. Suture in place. No erythema noted, slight bruise noted, not tender to palpation. Neuro: General: patient oriented x3 Cranial nerves: Yes CN's II-XII intact bilaterally Progress Note: A&P Assessment and plan (1) Pulmonary emboli: Status: Acute Assessment and Plan: Viji is post op day 3 s/p pulmonary embolectomy. She has been doing much better with no complaints of shortness of breath, diff breathing, or CP. She continues to have runs of SVT, which is being controlled by medications. From a vascular standpoint, she is doing well. She continues on Eliquis and is on Diltiazem for the heart rate control. We will have her continue on Eliquis and follow up with us outpatient. Her suture will need to be removed in 2 weeks. We will continue to monitor. If there are any questions or concerns, please do not hesitate to reach out to us. Time Spent With Patient Time: Total time managing care of this patient today ____ minutes. Procedures Date of Service Date of Service: 11/16/24 Quality Stroke Does the patient have a stroke diagnosis?: No VTE Prior VTE?: No VTE Risk Level:: Medical - moderate - high VTE Device Contraindication: Treatment Not Indicated VTE Drug Contraindication: N/A - Med Ordered
[2024-11-16 13:52] VITALS: BP 108/55; PULSE 73; O2SAT 93
[2024-11-17 21:14] LABS: Strep Pneumo Ag urine Not Detected (Not Detected)
[2024-11-19 01:38] LABS: Legionella Ag Urine Not Detected (Not Detected)
== END 2024-11-16 15:10 | disposition home or self-care (01) | DRG 163 ==
LOC: HO.ED 16:01 → HO.EDOVER 16:31 → HO.IMC 11-13 07:32
PROVIDERS: Family Medicine; Registered Nurse Emergency; Surgery Vascular Surgery; Admitting Provider Student in an Organized Health Care Education/Training Program; Emergency Provider Emergency Medicine; PCP Internal Medicine; Visit Provider Hospitalist
PROC: 02CR3ZZ Extirpation of Matter from Left Pulmonary Artery, Percutaneous Approach (ICD-10-PCS; principal; 2024-11-13 10:00)
DX: I26.09 Other pulmonary embolism with acute cor pulmonale (principal); J18.9 Pneumonia, unspecified organism; J96.01 Acute respiratory failure with hypoxia; I82.432 Acute embolism and thrombosis of left popliteal vein; I82.442 Acute embolism and thrombosis of left tibial vein; I47.10 Supraventricular tachycardia, unspecified; E78.5 Hyperlipidemia, unspecified; Z20.822 Contact with and (suspected) exposure to COVID-19; Z79.899 Other long term (current) drug therapy
CPT/HCPCS: 0241U; 36415; 37187; 71046; 71275; 80048; 80053; 82248; 82803; 83605; 83880; 84145; 84484; 85025; 85027; 85347; 85379; 85610; 85730; 87040; 87449; 87493; 87507; 87640; 87641; 87899; 93005; 93306; 93970; 94799; 97116; 97162; 99152; 99153; 99285; C1757; C1760; C1769; C1887; C1894; J0153; J1644; J1720; J2020; J2250; J2543; J3010; J3370; J7120; Q9957; Q9967

== ENCOUNTER → 2024-11-12 12:44 | Outpatient (BNV) | payer OTHER, SELFPAY | PROVIDERS: Emergency Provider Emergency Medicine; PCP Internal Medicine; Visit Provider Internal Medicine Cardiovascular Disease | DX: R00.0 Tachycardia, unspecified (principal) | CPT/HCPCS: 93010 ==

== ENCOUNTER → 2024-11-12 12:44 | Outpatient (BNV) | payer OTHER, SELFPAY | PROVIDERS: Emergency Provider Emergency Medicine; PCP Internal Medicine; Visit Provider Radiology Diagnostic Radiology | DX: I26.99 Other pulmonary embolism without acute cor pulmonale (principal); I82.432 Acute embolism and thrombosis of left popliteal vein; J18.9 Pneumonia, unspecified organism | CPT/HCPCS: 71046; 71275; 93970 ==

== ENCOUNTER 2024-11-12 15:55 | Outpatient (BNV) | payer OTHER, SELFPAY | END 2024-11-13 07:00 | PROVIDERS: Admitting Provider Student in an Organized Health Care Education/Training Program; Emergency Provider Emergency Medicine; PCP Internal Medicine; Visit Provider Internal Medicine Cardiovascular Disease | DX: I27.20 Pulmonary hypertension, unspecified (principal); I34.81 Nonrheumatic mitral (valve) annulus calcification; I51.89 Other ill-defined heart diseases | CPT/HCPCS: 93306 ==

== ENCOUNTER 2024-11-12 15:55 | Outpatient (BNV) | payer OTHER, SELFPAY | END 2024-11-14 08:19 | PROVIDERS: Admitting Provider Student in an Organized Health Care Education/Training Program; Emergency Provider Emergency Medicine; PCP Internal Medicine; Visit Provider Internal Medicine Cardiovascular Disease | DX: I45.10 Unspecified right bundle-branch block (principal) | CPT/HCPCS: 93010 ==

== ENCOUNTER → 2024-11-12 15:55 | Outpatient (BNV) | payer OTHER, SELFPAY | PROVIDERS: Admitting Provider Student in an Organized Health Care Education/Training Program; Emergency Provider Emergency Medicine; PCP Internal Medicine; Visit Provider Internal Medicine Cardiovascular Disease | DX: I47.10 Supraventricular tachycardia, unspecified (principal); I26.09 Other pulmonary embolism with acute cor pulmonale | CPT/HCPCS: 99223; 99233 ==

== ENCOUNTER → 2024-11-12 15:55 | Outpatient (BNV) | payer OTHER, SELFPAY | PROVIDERS: Admitting Provider Student in an Organized Health Care Education/Training Program; Emergency Provider Emergency Medicine; PCP Internal Medicine; Visit Provider Surgery Vascular Surgery | DX: I26.09 Other pulmonary embolism with acute cor pulmonale (principal) | CPT/HCPCS: 99223 ==

== ENCOUNTER → 2024-11-12 15:55 | Outpatient (BNV) | payer OTHER, SELFPAY | PROVIDERS: Admitting Provider Student in an Organized Health Care Education/Training Program; Emergency Provider Emergency Medicine; PCP Internal Medicine; Visit Provider Student in an Organized Health Care Education/Training Program | DX: I26.09 Other pulmonary embolism with acute cor pulmonale (principal) | CPT/HCPCS: 99232; 99233 ==

== ENCOUNTER 2024-11-30 09:28 | Outpatient (AMB) | payer OTHER, SELFPAY ==
[2024-11-30 09:36] VITALS: BP 100/72; PULSE 61; BMI 25.1
--- NOTE | 2024-11-30 09:36 | MHC.OFFVIS ---
Vital Signs 11/30/24 09:36 Height 5 ft 5 in Weight 150 lb 12.739 oz BMI 25.1 BP 100/72 Blood Pressure Location Lt brachial Position Sitting Pulse 61 Pulse Source Pulse Oximeter Intake Visit Reasons: [facility]/11-16/Hypoxia, pneumonia,elevated trops(NS) Net Application Architect Required: No Certified Wellness Program Coordinator: Certified Wellness Program Coordinator Present Allergies No Known Allergies Allergy (Verified 11/30/24 09:38) Medication List - Last Reconciled 11/30/24 by Shelia Robledo NP-C apixaban (Eliquis) 5 mg PO BID atorvastatin 20 mg PO BEDTIME calcium carbonate-vitamin D3 600 mg-5 mcg (200 unit) 1 tab PO DAILY metoprolol tartrate 50 mg See Protocol PO BID HPI HPI [facility]/11-16/Hypoxia, pneumonia,elevated trops(NS): Details: Viji is a 74 yo female with past medical history of hyperlipidemia who was recently admitted to [facility] with shortness of breath and found to have submassive, bilateral pulmonary embolism. On 11/13/2024 she underwent a mechanical thrombectomy bilaterally. Echocardiogram showed normal EF, and mildly elevated RV systolic pressures. She initially was on heparin then discharged on Eliquis. During her admission she had SVT and was initially on diltiazem drip. She was transitioned over to metoprolol prior to discharge. Today she presents for post hospital follow-up. She reports having some mild shortness of breath with exertion. No PND, orthopnea or edema. No calf discomfort. No chest discomfort at rest or with activity. She has been noticing some heart palpitations lasting a few minutes. She believes she may have had some palpitations like this prior to her hospital admission time as well. No sustained rapid rates. No dizziness, presyncope, syncope, falls. Taking meds as directed. No bleeding issues reported. Significant other present. [facility] Medical History (Updated 11/30/24 @ 11:49 by Shelia Robledo NP-C) SVT (supraventricular tachycardia) Pulmonary emboli Right lower lobe pneumonia HLD (hyperlipidemia) Social History Household Members: Significant Other Household Members Other:: 2 Housing: House Do you presently have visiting nurse or other home services: No Alcohol intake: current Alcohol intake frequency: holidays/special occasions only Patient Tobacco Use Status: Never used Tobacco Second Hand Smoke Exposure: No service: No Review of Systems Const All systems reviewed & are unremarkable except as noted in HPI and below ENT Denies dizziness Card Details: palpitations Denies chest pain, Denies chest pain at rest, Denies chest pain with activity, Reports rapid heart rate, Denies pedal edema, Denies edema, Denies leg edema, Denies lightheadedness, Denies palpitations, Denies dyspnea, Denies dyspnea on exertion and Denies orthopnea Resp Details: mild sob with exertion Denies cough, Denies dyspnea and Denies dyspnea on exertion GI Denies hematochezia and Denies change in stool character Musc Denies abnormal gait, Denies limited range of motion, Denies muscle cramps, Denies muscle weakness, Denies numbness, Denies radiating pain into limb, Denies stiffness and Denies tingling Neuro Denies abnormal gait, Denies dizziness, Denies numbness and Denies tingling Endo Denies palpitations Physical Exam Vital Signs: Last Vital Signs Pulse 61 11/30/24 09:36 BP 100/72 11/30/24 09:36 BMI result Body Mass Index 25.1 Const General: cooperative, healthy appearing, comfortable and no acute distress Orientation/consciousness: patient oriented x3 Neck Neck: Yes normal visual inspection and Yes no JVD Resp Effort & Inspection: normal respiratory effort Auscultation: clear to auscultation bilaterally, no rales, no rhonchi and no wheezes Cardio Rate: regular rate Rhythm: regular rhythm Heart sounds: S1 normal heart sound present, S2 normal heart sound present, no gallops, no murmurs and no rubs Neuro General: patient oriented x3 Extrem General: Yes normal to inspection, No no pedal edema and No calf tenderness Psych Appearance: grossly normal Mental Status: mental status grossly normal Speech and movement: Normal speech and movement present Assessment & Plan Assessment & Plan (1) Pulmonary emboli: Code(s): I26.99 - Other pulmonary embolism without acute cor pulmonale Category: Medical Qualifiers: Pulmonary embolism type: other Chronicity: acute Acute cor pulmonale presence: with acute cor pulmonale Qualified Code(s): I26.09 - Other pulmonary embolism with acute cor pulmonale Plan: [facility] admission last month with shortness of breath, found to have submassive bilateral PE. She did undergo vascular intervention, thrombectomy. Her echocardiogram showed normal EF and mildly elevated RV systolic pressure. Currently reporting only mild shortness of breath with exertional activities. No clinical signs of heart failure on examination. She tells me she does have an upcoming evaluation with hematology. Continue Eliquis. (2) SVT (supraventricular tachycardia): Code(s): I47.10 - Supraventricular tachycardia, unspecified Category: Medical Plan: Episodes of SVT noted during hospitalization and was sent home with metoprolol. Outpatient Holter monitor recommended however not completed as of yet. She does report some intermittent heart palpitations. Will order Holter monitor. Continue metoprolol at current dose. Instructed on avoidance of caffeine, maintain good hydration, adequate rest. Vagal maneuvers reviewed. (3) Hospital discharge follow-up: Code(s): Z09 - Encounter for follow-up examination after completed treatment for conditions other than malignant neoplasm Category: Medical Plan: Hospital discharge reviewed Plan Time spent on chart review, documentation, interview and assessment Orders: Orders ECG 3 day holter monitor Today Shelia Robledo, ADMITTED ATTORNEYS-C I47.10 - Supraventricular tachycardia, unspecified Medications: Changed From metoprolol tartrate 25 mg See Protocol PO Q6H 120 tabs 0RF To metoprolol tartrate 50 mg See Protocol PO BID Henri Dimas DO Coding Level of Care Code Est Pt Level 4 (28775) Complex EM visit Add On G2211 Diagnoses Other acute pulmonary embolism with acute cor pulmonale I26.09 Pulmonary embolism type: other Chronicity: acute Acute cor pulmonale presence: with acute cor pulmonale SVT (supraventricular tachycardia) I47.10 Hospital discharge follow-up Z09 Time Spent (min) 28
--- OUTSIDE RECORDS SUMMARY | 2024-11-30 10:31 | XMS_ITS | Clinical Summary ---
Author Organization [facility] Address [address], [place] Phone Care Team Providers Care Contact Center Assistant Name Role Phone Marjorie Viveros MD Primary Care Provider Allergies No known active allergies Medications cholecalciferol [...] by mouth at bedtime. 90 each 1 4 Active metoprolol tartrate (LOPRESSOR) 25 mg tablet Take 2 tablets (50 mg total) by mouth 2 (two) times a day. 360 tablet 1 5 Active Eliquis 5 mg tablet Take 1 tablet (5 mg total) by mouth 2 (two) times a day. 180 tablet 1 5 Active Eliquis 5 mg tablet Take 1 tablet (5 mg total) by mouth 2 (two) times a day. 5 11/25/19 25 Discontinu ed(Reorder ) metoprolol tartrate (LOPRESSOR) 25 mg tablet Take 2 tablets (50 mg total) by mouth 2 (two) times a day. 5 11/25/19 25 Discontinu ed(Reorder ) Active Problems Problem Noted Date Diagnosed Date Pulmonary emboli (CMS/HCC V24, CMS/HCC V28) 04/0 03/2025 Overview (11/24/2024): Submassive, bilateral with left popliteal DVT, thrombectomy SVT (supraventricular tachycardia) ([facility] V24) 11/24/2024 Hypercholesterolemia 06/29/2024 Osteopenia 06/29/2024 Vitamin D deficiency 06/29/2024 Overweight (BMI 25.0-29.9) 06/29/2024 Encounters Date Type Department Care Team Description 11/24/2024 10:30 AM EDT Office Visit Adult [address] [phone] Marjorie Viveros MD Multiple subsegmental pulmonary emboli without acute cor pulmonale ([facility] V24, [facility] V28) (Primary Dx); SVT (supraventricular tachycardia) ([facility] V24); Hypercholesterolemia; Pneumonia of right lower lobe due to infectious organism 11/17/2024 Telephone Adult Medicine [address] [phone] Yari Sen RN 11/17/2024 Telephone Adult [address] [phone] Alexia White MA Hospital Follow-up 11/12/[address] [phone] Alexia White MA Shortness of Breath 11/06/2024 10:30 AM EDT Office Visit [address] [phone] Marjorie Viveros MD Pneumonia of right lower lobe due to infectious organism (Primary Dx); Influenza A; Acute respiratory failure with hypoxia ([facility] V24, [facility] V28) 10/30/2024 Telephone Adult [address] [phone] Marjorie Viveros MD Hospital Follow-up 10/26/2024 1:00 PM EDT Office Visit Adult Medicine [address] [phone] Lucila Garcia PA Shortness of breath (Primary Dx); Tachycardia 10/26/2024 Nurse Triage Adult Medicine [address] [phone] Marjorie Viveros MD Fever; Flu Symptoms from Last 3 Months Immunizations Name Administration [...] 12 & older) Biv alent, COVID-19 05/17/2023,06/24/2022 [employer] Covid-19 Bivalent, Or iginal + Ba.1 (Non-US Trademark COMIRNATY Bivalent) 06/24/2022 [employer] SARS-CoV-2 COVID-19, mRNA, LNP-S, preservative free 05/23/2021 Pneumococcal conjugate 13 va lent (Prevnar 13, PCV13) 2mo and older 03/29/2016 Pneumococcal polysaccharide 23 valent (Pneumovax 23) 2yo and older 12/23/2014 Respiratory Syncytial Virus Monoclonal Antibody (palivizumab), Intramuscular 06/08/2024 Td Tetanus diptheria (Tdvax) 7yo and older 07/31/2023 Td Tetanus diptheria, preser vative free (Tenivac) 7yo and older 12/05/2022 Tdap Tetanus diptheria acell ular pertussis (Boostrix; Adacel) 7yo and older 12/01/2012 Zoster recombinant (Shingrix ) 19yo and older 06/23/2020,04/21/2020 Surgical History Surgery Date Site/Laterality Comments TUBAL LIGATION TONSILLECTOMY COLONOSCOPY 04/01/2014 SCREENING MAMMOGRAM 02/26/2024 Bilateral Medical History Medical History Date Comments Osteopenia 08/01/2022 Vitamin D deficiency 08/01/2022 Hypercholesterolemia 06/29/2024 Pulmonary emboli ([facility] V2 4, [facility] V28) 11/24/2024 Submassive, bilateral with l eft popliteal DVT, thrombectomy SVT (supraventricular tachyc ardia) ([facility] V24) 11/24/2024 Family History Medical History Relation Name Comments Breast cancer Aunt mat 44 Coronary artery disease Mother age 70 ca [...] ed Within the last 3 months, sonu roberts many times did you visit the emergency [...] care for your loved ones. For example, childcare center director or elderly care for an older adult? [...] Sign Reading Time Taken Comments Blood Pressure 116/62 11/24/2024 10:25 AM EDT Pulse 71 11/24/2024 10:25 AM EDT Temperature 35.8 ??C (96.4 ??F) 11/24/2024 10:25 AM E DT Respiratory Rate 14 11/24/2024 10:25 AM EDT Oxygen Saturation 96% 11/24/2024 10:25 AM EDT Inhaled Oxygen Concentration - - Weight 67 kg (147 lb 12.8 oz) 11/24/2024 10:25 A M EDT Height 165.1 cm (5' 5 ) 11/24/2024 10:25 AM EDT Body Mass Index 24.6 11/24/2024 10:25 AM EDT Plan of Treatment Upcoming Encounters Date Type Department Care Team (Late st Contact Info) Description 01/05/2025 11:30 AM EDT Office Visit [facility] Hematology Oncology [address] [place] [phone] Jorge Gómez MD [address] [place] [address] 02/02/2025 11:00 AM EDT Office Visit Adult Medicine [place] - [address] [phone] Marjorie Viveros MD [address] [place] [address] 03/04/2025 10:30 AM EDT Appointment Radiology Department - [address] [phone] Health Maintenance Due Date Last Done Comments Colorectal Cancer Screening: Colonoscopy 07/28/2022 Medicare Annual Wellness Visit 07/28/2022 RSV Immunization Adult Patients (1 - 1-dose 75+ series) 2024 COVID-19 Vaccine ( season) 2024 04/28/2024, 05/17/2023, 05/17/2023, Additional history exists Depression Screening 07/27/2025 07/27/2024 Social Influencers of [...] 02/26/20 24, 02/26/2024, 02/06/2023, Additional history exists Influenza Vaccine Completed 04/28/2024, [...] age to complete this topic Meningococcal B Vaccine Aged Out No l onger eligible based on patient's age to complete this topic RSV Immunization Patients Under 20 months Aged Out No longer eligible based on patient's age to complete this topic Varicella Vaccines Aged Out No longer eligible based on patient's age to complete this topic Procedures Procedure Name Priority Date/Time Associated Diagnosis Comments LIPID PANEL WITH REFLEX TO DIRECT LDL Routine 08/05/2024 9:17 AM EST Hypercholesterolemia SCREENING MAMMOGRAPHY BI 2-VIEW BREAST INC CAD [...] LAB CHEMISTRY METHOD 08/05/2024 12:17 PM EST [facility] Triglycerides 193(H) 0 - 150 mg/dL LAB CHEMISTRY METHOD 08/05/2024 12:17 PM EST [facility] HDL 75 >=40 mg/dL LAB CHEMISTRY METHOD 08/05/2024 12:17 PM EST [facility] LDL Calculated 93 0 - 100 mg/dL LAB CHEMISTRY METHOD 08/05/2024 12:17 PM EST [facility] VLDL Cholesterol Rolando 38.6 mg/dL LAB CHEMISTRY METHOD 08/05/2024 12:17 PM EST [facility] Non HDL Chol. (LDL+VLDL) 132 <145 mg/dL LAB CHEMISTRY METHOD 08/05/2024 12:17 PM EST [facility] Chol/HDL Ratio 2.8 0.0 - 4.4 LAB CHEMISTRY METHOD 08/05/2024 12:17 PM EST [facility] Blood Venous blood specimen / Unknown Venipuncture / Unknown 08/05/2024 9:17 AM EST 08/05/2024 9:17 AM EST us Lauryn ORTEGA LAB BLOOD ORDERABLES Final Re sult [facility] [address] [place] [address], * SCREENING MAMMOGRAPHY BI 2-VIEW BREAST INC [...] Breast cancer risk not assessed Procedure Note Elias Bean MD - 06/03/2024 This is a [...] Result * DXA BONE DENSITY STUDY 1+ [facility] AXIAL [facility] (10/03/2023 2:37 PM EST) Anatomical Region Laterality [...] (World Health Organization Fracture Risk Assessment) [facility] Department of Internal Medicine recommends using National [...] (World Health Organization Fracture Risk Assessment) [facility] Department of Internal Medicine recommendsusing National Osteoporosis [...] Resu lt * Hepatitis C Screening (12/31/2013) [facility] Hepatitis C Screening abstracted Historical Provider HEALTH MAINTENANCE Final Result from Last 3 Months or Most Recently Relevant to Health Maintenance Insurance MEDICARE [facility] Care Teams Contact Center Assistant Relationship Specialty Start Date End Date Marjorie Viveros MD [address] [place] [address] PCP - General Internal Medicine 01/13/21
--- OUTSIDE RECORDS SUMMARY | 2024-11-30 10:31 | XMS_ITS | Encounter Summary ---
Author Organization [facility] Address [address] [place] [address] Care Team Providers Care Rf Technician Name Role Phone Marjorie Viveros MD Primary Care Provider [phone] Reason for Visit * Reason Onset Date Comments Mychart Rx Refill 01/15/2024 Encounter Details Date Type Department Care Team Description 01/15/2024 Refill Adult Medicine [facility] [address] [place] [address] Lauryn Fernández PA-C [address] [place] [address] Mychart Rx Refill Social History Tobacco Use Types Packs/Day Years Used Date Smoking Tobacco: Never Smokeless Tobacco: Never Alcohol Use Standard Drinks/Week Comments Yes 0 (1 standard drink = 0.6 oz pure alcohol) 1-2 glasses of wine with dinner Physical Activity Answer Date Recorded On average, how many days pe r week do you engage in moderate to strenuous exercise (like walking fast, running, jogging, dancing, swimming, biking, or other activities that cause a light or heavy sweat)? 6 days 07/19/2020 On average, how many minutes do you engage in exercise at this level? 60 min 07/19/2020 Intimate Partner Violence Answer Date R ecorded Within the last year, have y ou been afraid of your partner or ex-partner? No 07/19/2020 Within the last year, have y ou been humiliated or emotionally abused in other ways by your partner or ex-partner? No Within the last year, have y ou been kicked, hit, slapped, or otherwise physically hurt by your partner or ex-partner? No 07/19/2020 Within the last year, have y ou been raped or forced to have any kind of sexual activity by your partner or ex-partner? No 07/19/2020 Sex Assigned at Date Recorded Not on file Job Start Date Occupation Industry Not on file Not on file Not on file documented as of this encounter Miscellaneous Notes * Telephone Encounter - Elisabet Campbell M.A. - 01/15/2024 9:00 AM EDT Lab Results Component Value Date CHOL 200 07/25/2023 LDL 100 07/25/2023 HDL 67 07/25/2023 TRIG 168 07/25/2023 SGOT 15 07/25/2023 SGPT 31 07/25/2023 Pending appt 01/31/24 Last appt 07/31/23 documented in this encounter Plan of Treatment Not on file documented as of this encounter Visit Diagnoses Not on filedocumented in this encounter Care Teams Rf Technician Relationship Specialty Start Date End Date Marjorie Viveros MD [address] [place] [address] PCP - General Internal Medicine 01/13/21 documented as of this encounter
--- OUTSIDE RECORDS SUMMARY | 2024-11-30 10:31 | XMS_ITS | Encounter Summary ---
Author Organization [facility] Address [address] [place] [address] Care Team Providers Care Director Of Institutional Giving Name Role Phone Marjorie Viveros MD Primary Care Provider Reason for Visit * Reason Onset Date Comments Provider Call Back 10/30/2022 Encounter Details Date Type Department Care Team Description 10/30/2022 Telephone OBGYN - [place] [address] [place] [address] Jacklyn Musa, [facility] [address] [place] [address] Provider Call Back Social History Tobacco Use Types Packs/Day Years [...] encounter Miscellaneous Notes * Telephone Encounter - Pau Coello - 11/08/2022 11:18 AM EDT Patient calling on status * Telephone Encounter - Haritha Dhillon - 10/30/2022 11:09 AM EDT Pt came to see Jacklyn Musa on 09/03/22 for AG. Has learned from [facility] that Jacklyn is not credentialed with them so she has a bill. They have suggested that we resubmit in one of the Doctor's names then the bill will be paid. documented in this encounter Plan of Treatment Not on file documented as of this encounter Visit Diagnoses Not on filedocumented in this encounter Care Teams Director Of Institutional Giving Relationship Specialty Start Date End Date Marjorie Viveros MD [address] [place] [phone] PCP - General Internal Medicine 01/13/21 documented as of this encounter
--- OUTSIDE RECORDS SUMMARY | 2024-11-30 10:31 | XMS_ITS | Encounter Summary ---
Author Organization [facility] Address [address] [place] [address] Care Team Providers Care Equipment Detailer Name Role Phone Marjorie Viveros MD Primary Care Provider [phone] Encounter Details Date Type Department Care Team Description 03/05/2023 Pt. Non Urgent Medical Question Adult Medicine [facility] [address] [place] [phone] Marjorie Viveros MD [address] [place] [address] [phone] Social History Tobacco Use Types Packs/Day Years [...] file Not on file Not on file COVID-19 Exposure Response Date Recorded In the last 10 days, have yo u been in contact with someone who was confirmed or suspected to have Coronavirus/COVID-19? No / Unsure 02/06/2023 11:11 AM EDT documented as of this encounter Plan of Treatment Not on file documented as of this encounter Visit Diagnoses Not on filedocumented in this encounter Care Teams Equipment Detailer Relationship Specialty Start Date End Date Marjorie Viveros MD [address] [place] [address] PCP - General Internal Medicine 01/13/21 documented as of this encounter
--- OUTSIDE RECORDS SUMMARY | 2024-11-30 10:31 | XMS_ITS | Encounter Summary ---
Author Organization [facility] Address [address] [place] [address] Care Team Providers Care Granulator Operator Name Role Phone Pebbles Landry MD Primary Care Provider Marjorie Good MD Primary Care Provider [phone] Encounter Details Date Type Department Care Team Description 02/11/2013 Pt. Referral Request [facility] [place] [address] [place] [id number] [place] Ashlee Social History Tobacco Use Types Packs/Day Years [...] on file documented as of this encounter Plan of Treatment Not on file documented as of this encounter Visit Diagnoses Not on filedocumented in this encounter Care Teams Granulator Operator Relationship Specialty Start Date End Date Pebbles Landry MD PCP - General Internal Medicine 04/01/12 01/12/21 Marjorie Viveros MD [address] [place] [address] PCP - General Internal Medicine 01/13/21 documented as of this encounter
--- OUTSIDE RECORDS SUMMARY | 2024-11-30 10:31 | XMS_ITS | Encounter Summary ---
Author Organization [facility] Address [address] [place] [address] Care Team Providers Care Digital Composer Name Role Phone Pebbles Landry MD Primary Care Provider Marjorie Good MD Primary Care Provider [phone] Reason for Visit * Reason Onset Date Comments REFERRAL 12/02/2012 Encounter Details Date Type Department Care Team Description 12/02/2012 Telephone Ophthalmology-[address] [address] Issa Nash, JORDY REFERRAL Social History Tobacco Use Types Packs/Day Years [...] Miscellaneous Notes * Telephone Encounter - Elisabet Jung - 12/02/2012 9:[address] Landry put a referral in for: ophthalmology. Reason for referral: routine exam Priority: Next Available FYI Patient wanted to see Dr. Nash in [place]. Eye dept is moving to [place] 01/19/2013. No openings in [place]. Patient does not want to go to [place] for an eye exam. She states she will look for a local eye doctor. I took the referral off the report. Thank you documented in this encounter Plan of Treatment Not on file documented as of this encounter Visit Diagnoses Not on filedocumented in this encounter Care Teams Digital Composer Relationship Specialty Start Date End Date Pebbles Landry MD PCP - General Internal Medicine 04/01/12 01/12/21 Marjorie Viveros MD [address] [place] [address] PCP - General Internal Medicine 01/13/21 documented as of this encounter
--- OUTSIDE RECORDS SUMMARY | 2024-11-30 10:31 | XMS_ITS | Clinical Summary ---
Author Organization [facility] Address [address] [place] [address] Care Team Providers Care Software Systems Engineer Name Role Phone Marjorie Viveros MD Primary Care Provider [phone] Allergies No known active allergies Medications Medication Sig Dispensed Refills Start Date End Date Status Cholecalciferol (Vitamin D3) 1000 units Cap Take 1 Capsule by mouth daily. 0 01/31/2024 Active Calcium Carb-Cholecalciferol (Calcium + Vitamin D3) 600-10 MG-MCG Tab Take 1 Tablet by mouth 2 times daily. 0 01/31/2024 Active atorvastatin (LIPITOR) 20 MG tablet Take 1 Tablet by mouth at bedtime. 90 Tablet 1 04/02/2024 Active Active Problems Problem Noted Date Overweight (BMI 25.0-29.9) 07/31/2023 Osteopenia 08/01/2022 Vitamin D deficiency 08/01/2022 Hypercholesterolemia 04/03/2017 Resolved Problems Problem Noted Date Resolved Date Hyperlipidemia LDL goal < 160 08/05/2012 Overview: IMO update Immunizations Name Administration Dates Next Due COVID-19 (Pfizer) 05/23/2021,10/05/2020,09/14/19 21 Covid-19 Bivalent (Pfizer) 06/24/2022 Covid-19 Pfizer Omicron (Pt Reported)-Comirnaty 05/17/2023 Influenza (> 6 Months) 04/29/2023,2020,06/21/2016,07/07,06/16/2014,07/02/2013,06/13/2012 Influenza Flu (PT Reported) 05/03/2021 Influenza vaccine high dose age 65 and over 04/29/2023,06/04/2022,05/08/2021,04/21,05/26/2019,05/13/2018 Pneumoccoccal(Adult) Polysac charide PPSV23 12/23/2014 Pneumococcal Conjugate PCV-13 03/29/2016 Shingrix (Patient reported) 06/23/2020, 0 Shingrix (Recombinant zoster vaccine) 06/23/2020 ,04/21/2020 TD (STATE SUPPLIED FOR ADULT S AND CHILDREN) 07/31/2023 Tdap 12/01/2012 Family History Medical History Relation Name Comments CA Breast Aunt mat 44 CA Breast Mother age 70 CAD Mother age 70 ca breast CA Colon Negative Hx CA Ovarian Negative Hx Uterine Cancer Negative Hx Relation Name Status Comments Aunt mat [...] file Not on file Not on file Last Filed Vital Signs Vital Sign Reading Time Taken Comments Blood Pressure 100/60 01/31/2024 11:12 AM EDT Pulse 68 01/31/2024 11:12 AM EDT Temperature 36.6 ??C (97.9 ??F) 01/31/2024 11:12 AM E DT Respiratory Rate 14 01/31/2024 11:12 AM EDT Oxygen Saturation 98% 12/10/2013 1:41 PM EDT Inhaled Oxygen Concentration - - Weight 72.1 kg (159 lb) 01/31/2024 11:12 AM EDT Height 165.1 cm (5' 5 ) 01/31/2024 11:12 AM EDT Body Mass Index 26.46 01/31/2024 11:12 AM EDT Plan of Treatment Health Maintenance Due Date Last Done Comments Covid-19 Vaccine (7 2022- 4 season) 2024 05/17/2023, 06/24/2022, 06/24/2022, Additional history exists BMI CHECK/ADVISE 08/19/2024 01/31/2024, , 09/03/2022, Additional history exists MAMMOGRAM 02/25/2025 02/26/2024, 01/18, 12/20/2021, Additional history exists INFLUENZA (Season Ended) 2025 023, 04/29/2023, 06/04/2022, Additional history exists BONE DENSITY SCREENING 10/03/2025 , 12/14/2020, 04/29/2017, Additional history exists CHOLESTEROL SCREENING 07/25/2028 07/25/2023 , 08/01/2022, 01/21/2021, Additional history exists DTAP/TDAP/TD (3 - Td or Tdap) 07/31/2033 07/31/2023, 12/01/2012 HEPATITIS C SCREENING Completed 12/31/2013 PNEUMOCOCCAL VACCINE Completed 03/29/2016, 12/24/19 15 SHINGLES VACCINE Completed 06/23/2020, 12/2019, 06/23/2020 (External Completion), Additional history exists Care Teams Software Systems Engineer Relationship Specialty Start Date End Date Marjorie Viveros MD [address] [place] [id number] PCP - General Internal Medicine 01/13/21
== END 2024-11-30 10:15 | disposition home or self-care (01) ==
LOC: HO.HCS 09:28
PROVIDERS: PCP Internal Medicine; Visit Provider Nurse Practitioner Family
DX: I26.09 Other pulmonary embolism with acute cor pulmonale (principal); I47.10 Supraventricular tachycardia, unspecified; Z09 Encounter for follow-up examination after completed treatment for conditions other than malignant neoplasm
CPT/HCPCS: 99214

== ENCOUNTER → 2024-11-30 09:28 | Outpatient (BNVA) | payer OTHER, SELFPAY | PROVIDERS: PCP Internal Medicine; Visit Provider Nurse Practitioner Family | DX: Z09 Encounter for follow-up examination after completed treatment for conditions other than malignant neoplasm (principal); I26.09 Other pulmonary embolism with acute cor pulmonale; I47.10 Supraventricular tachycardia, unspecified | CPT/HCPCS: 99212 ==

== ENCOUNTER 2024-12-01 11:09 | Outpatient (AMB) | payer OTHER, SELFPAY ==
[2024-12-01 11:10] VITALS: BMI 25.0
--- NOTE | 2024-12-01 11:10 | MHC.OFFVIS ---
Vital Signs 12/01/24 11:10 Height 5 ft 5 in Weight 150 lb BMI 25.0 Intake Visit Reasons: 2 week follow up suture removal Intake Note: 2 week follow up PE 11/13/24, Pt states she is feeling great, no complaints. Fire Code Inspector Required: No Accompanied by: Spouse Allergies No Known Allergies Allergy (Verified 12/01/24 11:14) HPI HPI 2 week follow up suture removal: Details: The patient is a 74-year-old female presenting with pulmonary embolism and bacterial pneumonia. Initially assessed for symptoms of pneumonia, her condition led to the identification of an underlying pulmonary embolism. Treatment involved direct intervention to manage the embolism and appropriate antibiotic therapy for pneumonia. Following intervention, her breathing capacity improved, and the pneumonia symptoms subsided. The patient reports complete resolution of her primary presenting symptoms and an overall better quality of life. She now presents for postprocedure follow-up [facility] Medical History SVT (supraventricular tachycardia) Pulmonary emboli Right lower lobe pneumonia HLD (hyperlipidemia) Social History Household Members: Significant Other Household Members Other:: 2 Housing: House Do you presently have visiting nurse or other home services: No Alcohol intake: current Alcohol intake frequency: holidays/special occasions only Patient Tobacco Use Status: Never used Tobacco Second Hand Smoke Exposure: No service: No Review of Systems Const All systems reviewed & are unremarkable except as noted in HPI and below Reports no additional complaints ENT Reports Normal hearing present Card Denies chest pain, Denies chest pain at rest, Denies chest pain with activity and Denies pedal edema Resp Denies cough GI Denies abdominal pain Musc Denies abnormal gait, Denies muscle cramps and Denies radiating pain into limb Skin/Breast Denies skin ulcer and Denies wounds Neuro Reports Normal hearing present and Denies abnormal gait Psych Reports no additional complaints Physical Exam Vital Signs: BMI result Body Mass Index 25.0 Const General: cooperative, healthy appearing and comfortable Orientation/consciousness: oriented to person, oriented to place and oriented to time HEENT Head: Yes normal to inspection Neck Neck: Yes normal visual inspection Carotids: no bruits Chest Chest palpation & inspection: normal inspection of the chest Resp Effort & Inspection: normal respiratory effort and able to speak in complete sentences Auscultation: clear to auscultation bilaterally, no crackles, no rales, no rhonchi and no wheezes Cardio Rate: regular rate Rhythm: regular rhythm Heart sounds: S1 normal heart sound present and S2 normal heart sound present Bruits: no carotid bruits Peripheral pulses: Peripheral pulses 2+ throughout GI Inspection: Yes normal to inspection Skin Wounds: no wounds Hair: normal Neuro General: oriented to person, oriented to place and oriented to time Cranial nerves: Yes CN's II-XII intact bilaterally and Yes Normal hearing present Cognition (Neuro): normal cognition Motor exam (neuro): 5/5 motor strength present throughout Extrem Other: venous exam: No significant superficial varicosities or spider telangiectasias, minimal edema General: No clubbing, No cyanosis and No edema Psych Appearance: grossly normal Mental Status: mental status grossly normal Speech and movement: Normal speech and movement present Assessment & Plan Assessment & Plan (1) Pulmonary emboli: Comment: 11/13/2024 pulmonary embolectomy Code(s): I26.99 - Other pulmonary embolism without acute cor pulmonale Category: Medical Qualifiers: Pulmonary embolism type: other Chronicity: acute Acute cor pulmonale presence: with acute cor pulmonale Qualified Code(s): I26.09 - Other pulmonary embolism with acute cor pulmonale Plan: I discussed with the patient the successful outcome of her pulmonary intervention and resolution of pneumonia, emphasizing the importance of adherence to anticoagulant therapy and upcoming hematological assessments. The risks of recurrent embolism and potential long-term anticoagulation were addressed, with benefits outweighing risks. Available studies, the rationale for current treatment path, and the necessity for vigilance in monitoring any prodromal symptoms were reviewed. Continual dialogue indicated mutual understanding that if no new issues arise, no further appointments are needed immediately. The patient expressed relief at the improved health status and satisfaction with care provided. Plan Patient was informed and verbally consented to the use of an ambient scribe for clinic note documentation during this visit. Patient Instructions: - Continue blood thinner medications as prescribed. - Follow up with hematology as scheduled. - Monitor for any symptoms of recurrence or complications such as sudden shortness of breath, chest pain, or unusual leg swelling. - Reach out immediately if such symptoms occur. - Share procedural pictures with family for their understanding. - No immediate follow-up required unless symptoms change. Coding Level of Care Code Est Pt Level 4 (35027) Diagnoses Other acute pulmonary embolism with acute cor pulmonale I26.09 Pulmonary embolism type: other Chronicity: acute Acute cor pulmonale presence: with acute cor pulmonale
--- OUTSIDE RECORDS SUMMARY | 2024-12-01 13:46 | XMS_ITS | Encounter Summary ---
Author Organization [facility] Address [address] [place] [address] Care Team Providers Care Labor Trainer Name Role Phone Marjorie Viveros MD Primary Care Provider [phone] Reason for Visit * Reason Onset Date Comments Provider Call Back 10/30/2022 Encounter Details Date Type Department Care Team Description 10/30/2022 Telephone OBGYN - [facility] [address] [place] [address] Jacklyn Musa, [facility] [address] [place] [address] Provider Call Back Social History Tobacco Use [...] on 09/03/22 for AG. Has learned from [facility] that Jacklyn is not credentialed with them so she has a bill. They have suggested that we resubmit in one of the Doctor's names then the bill will be paid. documented in this encounter Plan of Treatment Not on file documented as of this encounter Visit Diagnoses Not on filedocumented in this encounter Care Teams Labor Trainer Relationship Specialty Start Date End Date Marjorie Viveros MD [address] [place] [id number] PCP - General Internal Medicine 01/13/21 documented as of this encounter
--- OUTSIDE RECORDS SUMMARY | 2024-12-01 13:46 | XMS_ITS | Encounter Summary ---
Author Organization [facility] Address [address] [place] [address] Care Team Providers Care Reamer Hand Name Role Phone Marjorie Viveros MD Primary Care Provider [phone] Encounter Details Date Type Department Care Team Description 07/22/2023 Orders Only Adult Medicine [facility] [address] [place] [address] Lauryn Fernández PA-C [address] [place] [id number] Vitamin D deficiency (Primary Dx); Hypercholesterolemia; Osteopenia, unspecified location Social History Tobacco Use Types Packs/Day Years [...] on file documented as of this encounter Results * CHG 25 HYDROXY INCLUDES FRACTIONS IF PERFORMED (07/25/2023 9:18 AM EST) Pathologist [facility] VITAMIN D, 25-HYDROXY 32 30 - 80 ng/mL 07/25/2023 12:39 PM EST [facility] 07/25/2023 9:18 AM EST 07/25/2023 9:18 AM EST Narrative [facility] - 07/25/2023 12:39 PM EST Release to patient->Immediate Lauryn Fernández PA-C LAB [facility] * (ABNORMAL) CHG BLOOD COUNT COMPLETE AUTO&AUTO DIFRNTL WBC (07/25/2023 9:18 AM EST) Pathologist [facility] WHITE BLOOD COUNT 4.9 4.8 - 10.8 x10-3/uL 07/25/2023 12:21 PM EST [facility] RED BLOOD COUNT 4.5 3.8 - 4.8 x10-6/uL 07/25/2023 12:21 PM EST [facility] Hemoglobin 14.9 11.5 - 16.0 g/dL 07/25/2023 12:21 PM EST [facility] Hematocrit 43.9 35 - 47 % 07/25/2023 12:21 PM EST [facility] MEAN CORPUSCULAR VOLUME 96.9 79 - 98 fL 07/25/2023 12:21 PM EST [facility] MEAN CORPUSCULAR HEMOGLOBIN 32.9(H) 27 - 32 pg 07/25/2023 12:21 PM EST [facility] MEAN CORPUSCULAR HGB CONC 33.9 32 - 37 g/dL 07/25/2023 12:21 PM EST [facility] RED CELL DISTRIBUTION WIDTH 12.4 11 - 15 % 07/25/2023 12:21 PM EST [facility] PLT COUNT 225 130 - 400 x10-3/uL 07/25/2023 12:21 PM EST [facility] MEAN PLATELET VOLUME 10.7 7 - 11 fL 07/25/2023 12:21 PM EST [facility] NRBC % AUTO 0.0 <1 % 07/25/2023 12:21 PM EST [facility] NEUTROPHILS % 59.6 % 07/25/2023 12:21 PM EST [facility] LYMPH % 30.8 % 07/25/2023 12:21 PM EST [facility] MONO % 7.6 % 07/25/2023 12:21 PM EST [facility] EOS % 1.4 % 07/25/2023 12:21 PM EST [facility] BASO % 0.4 % 07/25/2023 12:21 PM EST [facility] IMMATURE GRANULOCYTES % 0.2 % 07/25/2023 12:21 PM EST [facility] NRBC # AUTO 0.00 <0.1 x10-3/uL 07/25/2023 12:21 PM EST [facility] NEUT # 2.90 1.5 - 7.0 x10-3/uL 07/25/2023 12:21 PM EST [facility] LYMPH # 1.50 1 - 5.0 x10-3/uL 07/25/2023 12:21 PM EST [facility] MONO # 0.37 0.2 - 1.0 x10-3/uL 07/25/2023 12:21 PM EST [facility] EOS # 0.07 0 - 0.5 x10-3/uL 07/25/2023 12:21 PM EST [facility] BASO # 0.02 0 - 0.2 x10-3/uL 07/25/2023 12:21 PM EST [facility] IMMATURE GRANULOCYTES # 0.01 0 - 0.03 x10-3/uL 07/25/2023 12:21 PM EST [facility] 07/25/2023 9:18 AM EST 07/25/2023 9:18 AM EST Narrative [facility] - 07/25/2023 12:21 PM EST Release to patient->Immediate Lauryn Fernández PA-C LAB [facility] * (ABNORMAL) CHG LIPID PANEL (07/25/2023 9:18 AM EST) Cholesterol 200 0 - 200 mg/dL 07/25/2023 12:31 PM EST [facility] TRIGLYCERIDES 168(H) 0 - 150 mg/dL 07/25/2023 12:31 PM EST [facility] HDL CHOLESTEROL 67 >40 mg/dL 12:31 PM EST [facility] LDL CALCULATED 100 0 - 100 mg/dL 07/25/2023 12:31 PM EST [facility] TC-HDLC RATIO 3.0 0 - 4.4 mg/dL 07/25/2023 12:31 PM EST [facility] 07/25/2023 9:18 AM EST 07/25/2023 9:18 AM EST Narrative [facility] - 07/25/2023 12:31 PM EST Release to patient->Immediate aLuryn Fernández PA-C LAB [facility] * (ABNORMAL) CHG COMPREHENSIVE METABOLIC PANEL (07/25/2023 9:18 AM EST) GLUCOSE 101(H) 70 - 100 mg/dL 07/25/2023 12:31 PM EST [facility] Comment:Reference range appl icable to fasting specimens only Blood Urea Nitrogen 13 5 - 25 mg/dL 07/25/2023 12:31 PM EST [facility] CREAT 0.85 0.5 - 1.1 mg/dL 07/25/2023 12:31 PM EST [facility] GLOMERULAR FILTRATION RATE 72 >60 07/25/2023 12:31 PM EST [facility] Comment: This eGFR result was calculated using the CKD-EPI 2020 Creatinine Equation NA 141 135 - 145 mEq/L 07/25/2023 12:31 PM EST [facility] K 4.3 3.5 - 5.5 mmol/L 07/25/2023 12:31 PM EST [facility] CL 106 96 - 110 mmol/L 07/25/2023 12:31 PM EST [facility] CARBON DIOXIDE (CO2) 29 21 - 32 mmol/L 07/25/2023 12:31 PM EST [facility] ANION GAP 6 3 - 11 07/25/2023 12:31 PM EST [facility] CALCIUM 9.5 8.5 - 10.5 mg/dL 07/25/2023 12:31 PM EST [facility] TOTAL PROTEIN (TP) 7.3 6.0 - 8.0 G/dL 07/25/2023 12:31 PM EST [facility] Albumin 4.2 3.2 - 5.0 G/dL 07/25/2023 12:31 PM EST [facility] BILIRUBIN TOTAL 0.7 0.0 - 1.4 mg/dL 07/25/2023 12:31 PM EST [facility] SGOT 15 10 - 42 U/L 07/25/2023 12:31 PM EST [facility] SGPT 31 10 - 60 U/L 07/25/2023 12:31 PM EST [facility] ALK PHOS 79 42 - 121 U/L 07/25/2023 12:31 PM EST [facility] 07/25/2023 9:18 AM EST 07/25/2023 9:18 AM EST Narrative [facility] - 07/25/2023 12:31 PM EST Release to patient->Immediate Lauryn Fernández PA-C LAB [facility] documented in this encounter Visit Diagnoses Diagnosis Vitamin D deficiency- Primary Unspecified vitamin D deficiency Hypercholesterolemia Pure hypercholesterolemia Osteopenia, unspecified location Vitamin D deficiency Unspecified vitamin D deficiency Osteopenia, unspecified location Hypercholesterolemia Pure hypercholesterolemia documented in this encounter Care Teams Reamer Hand Relationship Specialty Start Date End Date Marjorie Viveros MD [address] [place] [id number] PCP - General Internal Medicine 01/13/21 documented as of this encounter
--- OUTSIDE RECORDS SUMMARY | 2024-12-01 13:46 | XMS_ITS | Clinical Summary ---
Author Organization [facility] [address] [facility] Address [address] [place], [place] Phone Care Team Providers Care Calcine Furnace Loader Name Role Phone Marjorie Viveros MD Primary Care Provider [phone] Allergies No known active allergies Medications cholecalciferol [...] left popliteal DVT, thrombectomy SVT (supraventricular tachycardia) ([facility]) 11/24/2024 Hypercholesterolemia 06/29/2024 Osteopenia 06/29/2024 Vitamin D deficiency 06/29/2024 Overweight (BMI 25.0-29.9) 06/29/2024 Encounters Date Type Department Care Team Description 11/30/[address] [phone] Marjorie Viveros MD Referral 11/24/2024 10:30 AM EDT Office Visit [address] [phone] Marjorie Viveros MD Multiple subsegmental pulmonary emboli without acute cor pulmonale ([facility], [facility]28) (Primary Dx); SVT (supraventricular tachycardia) ([facility] [place]); Hypercholesterolemia; Pneumonia of right lower lobe due to infectious organism 11/17/[address] [phone] Yari Sen RN 11/17/[address] [phone] Alexia White [place] Hospital Follow-up 11/12/[address] [phone] Alexia White [place] Shortness of Breath 11/06/2024 10:30 AM EDT Office Visit [address] [phone] Marjorie Viveros MD Pneumonia of right lower lobe due to infectious organism (Primary Dx); Influenza A; Acute respiratory failure with hypoxia ([facility] [place], [facility]) 10/30/2024 Telephone Adult [address] [phone] Marjorie Viveros MD Hospital Follow-up 10/26/2024 1:00 PM EDT Office Visit [address] [phone] Lucila Garcia PA Shortness of breath (Primary Dx); Tachycardia 10/26/2024 Nurse Triage [address] [phone] Marjorie Viveros MD Fever; Flu Symptoms from [...] 12 & older) Biv alent, COVID-19 05/17/2023,06/24/2022 Pfizer Covid-19 Bivalent, Or iginal + Ba.1 (Non-US [employer]adem[employer] Bivalent) 06/24/2022 Problemsolutions24 SARS-CoV-2 COVID-19, mRNA, LNP-S, preservative free 05/23/2021 [...] D deficiency 08/01/2022 Hypercholesterolemia 06/29/2024 Pulmonary emboli ([facility] V2 4, [facility] V28) 11/24/2024 Submassive, bilateral with l eft popliteal DVT, thrombectomy SVT (supraventricular tachyc ardia) ([facility] V24) 11/24/2024 Family History Medical History Relation [...] your loved ones. For example, early childhood teacher or elderly care for an older [...] Description 01/05/2025 11:30 AM EDT Office Visit [facility] Hematology Oncology [address] [place] [phone] Jorge Gómez MD [address] [place] [address] 02/02/2025 11:00 AM EDT Office Visit Adult Medicine [facility] - [address] [phone] Marjorie Viveros MD [address] [place] [address] 03/04/2025 10:30 AM EDT Appointment Radiology Department - [address] [phone] Health Maintenance Due Date Last Done Comments [...] LAB CHEMISTRY METHOD 08/05/2024 12:17 PM EST [facility] Triglycerides 193(H) 0 - 150 mg/dL LAB CHEMISTRY METHOD 08/05/2024 12:17 PM EST [facility] HDL 75 >=40 mg/dL LAB CHEMISTRY METHOD 08/05/2024 12:17 PM EST [facility] LDL Calculated 93 0 - 100 mg/dL LAB CHEMISTRY METHOD 08/05/2024 12:17 PM EST [facility] VLDL Cholesterol Rolando 38.6 mg/dL LAB CHEMISTRY METHOD 08/05/2024 12:17 PM EST [facility] Non HDL Chol. (LDL+VLDL) 132 <145 mg/dL LAB CHEMISTRY METHOD 08/05/2024 12:17 PM EST [facility] Chol/HDL Ratio 2.8 0.0 - 4.4 LAB CHEMISTRY METHOD 08/05/2024 12:17 PM EST [facility] Blood Venous blood specimen / Unknown Venipuncture / Unknown 08/05/2024 9:17 AM EST 08/05/2024 9:17 AM EST us Lauryn ORTEGA LAB BLOOD ORDERABLES Final Re sult [facility] [address] [place] [address], * SCREENING MAMMOGRAPHY BI 2-VIEW BREAST INC [...] (World Health Organization Fracture Risk Assessment) [facility] Department of Internal Medicine recommends using [...] (World Health Organization Fracture Risk Assessment) [facility] Department of Internal Medicine recommendsusing National [...] Resu lt * Hepatitis C Screening (12/31/2013) [facility] Hepatitis C Screening abstracted Historical Provider HEALTH MAINTENANCE Final Result from Last 3 Months or Most Recently Relevant to Health Maintenance Insurance MEDICARE [facility] Care Teams Calcine Furnace Loader Relationship Specialty Start Date End Date Marjorie Viveros MD [address] [place] [address] PCP - General Internal Medicine 01/13/21
--- OUTSIDE RECORDS SUMMARY | 2024-12-01 13:46 | XMS_ITS | Encounter Summary ---
Author Organization [facility] Address [address] [place] [address] Care Team Providers Care Risk Manager Name Role Phone Marjorie Viveros MD Primary Care Provider [phone] Reason for Referral * Consultation (Routine) - Closed Specialty Diagnoses / Procedures Referred By Contac t Referred To Contact Cardiology Diagnoses Other pulmonary embolism without acute cor pulmonale (CMS/HCC V24, CMS/HCC V28) Marjorie Viveros MD [address] [place] [address] Phone: tel: fax: Shelia Robledo, GEOVANY [address] [place] [phone] Phone: tel: Referral ID Status Reason Start Date Expiration Date V isits Requested Visits Authorized [id number] Closed Specialty Services Required 11/30/2024 11/30/2025 6 6 Reason for Visit * Reason Onset Date Comments Referral 11/30/2024 Encounter Details Date Type Department Care Team (Late st Contact Info) Description 11/30/2024 Telephone Adult Medicine [address] [phone] Marjorie Viveros MD [address] [place] [address] Referral Social History Tobacco Use Types Packs/Day Years [...] your loved ones. For example, early childhood coordinator or elderly care for an older adult? [...] as of this encounter Progress Notes * Anay Lee - 11/30/2024 12:59 PM EDT What insurance does the patient have today? Payor: [facility]/@[facility]@ Referrals cannot be processed if the insurance is not accurate. If the insurance listed above is NO BILLING INFORMATION FOUND FOR THIS ENCOUNTER then the patients correct insurance must be obtainedand registered in [facility] or their referral can not be processed. Name of person calling to request this referral? Fax - [facility] Referred To Provider (Include first and last name): Shelia Robledo NPI (if known): [id number] Order/Specialty requested cardiology Chief Complaint (Note: This is not a body part or a procedure): I26.99 Has the patient seen provider for this problem/Dx before? N/A Referred To Provider Address: Referred To Provider Referred To Provider Does patient have an appointment scheduled?: yes If yes, what is the date of the appointment?: 11/30/24 Is this a retro request? Not at the time of request Number of visits requested: 6 Is this appointment related to: MVA or worker compensation? no documented in this encounter Plan of Treatment Upcoming Encounters Date Type Department Care Team (Late st Contact Info) Description 01/05/2025 11:30 AM EDT Office Visit [facility] Hematology Oncology [address] [place] [phone] Jorge Gómez MD [address] [place] [address] 02/02/2025 11:00 AM EDT Office [address], [place] [phone] Marjorie Viveros MD [address] [place] [address] 03/04/2025 10:30 AM EDT Appointment Radiology Department - [address] [phone] Scheduled Referrals Name Type Priority Associated Diagnoses Order Schedule Ambulatory referral to Cardiology Outpatient Referral Routine Other pulmonary embolism without acute cor pulmonale ([facility] V24, [facility] V28) Expected: 11/30/2024, Expires: 11/30/2025 documented as of this encounter Visit Diagnoses Diagnosis Other pulmonary embolism without acute cor pulmonale ([facility] V24, [facility] V28)- Primary Encounter for screening mammogram for breast cancer documented in this encounter Additional Health Concerns Assessment Noted Time PHQ-9 Depression Total Score: 0 07/27/20 24 8:10 PM EST documented as of this encounter Care Teams Risk Manager Relationship Specialty Start Date End Date Marjorie Viveros MD [address] [place] [address] PCP - General Internal Medicine 01/13/21 documented as of this encounter
--- OUTSIDE RECORDS SUMMARY | 2024-12-01 13:46 | XMS_ITS | Encounter Summary ---
Author Organization [facility] Address [address] [place] [address] Care Team Providers Care Deployment Technician Name Role Phone Pebbles Landry MD Primary Care Provider Marjorie Good MD Primary Care Provider [phone] Reason for Visit * Reason Onset Date Comments REFERRAL 12/02/2012 Encounter Details Date Type Department Care Team Description 12/02/2012 Telephone Ophthalmology-[address] [address] Issa Nash, JORDY REFERRAL Social History Tobacco [...] Patient wanted to see Dr. Nash in [place]. Eye dept is moving to [place] 01/19/2013. No openings in [place]. Patient does not want to go to [place] for an eye exam. She states she will look for a local eye doctor. I took the referral off the report. Thank you documented in this encounter Plan of Treatment Not on file documented as of this encounter Visit Diagnoses Not on filedocumented in this encounter Care Teams Deployment Technician Relationship Specialty Start Date End Date Pebbles Landry MD PCP - General Internal Medicine 04/01/12 01/12/21 Marjorie Viveros MD [address] [place] [address] PCP - General Internal Medicine 01/13/21 documented as of this encounter
--- OUTSIDE RECORDS SUMMARY | 2024-12-01 13:46 | XMS_ITS | Encounter Summary ---
Author Organization [facility] Address [address] [place] [address] Care Team Providers Care Electrocardiograph Repairer Name Role Phone Pebbles Landry MD Primary Care Provider Marjorie Good MD Primary Care Provider [phone] Encounter Details Date Type Department Care Team Description 12/17/2013 Storage Garage Attendant Report Medical Records [address] [place] [address] Adrianna Weir Social History Tobacco Use Types Packs/Day Years [...] on filedocumented in this encounter Care Teams Electrocardiograph Repairer Relationship Specialty Start Date End Date Pebbles Landry MD PCP - General Internal Medicine 04/01/12 01/12/21 Marjorie Viveros MD [address] [place] [address] PCP - General Internal Medicine 01/13/21 documented as of this encounter
--- OUTSIDE RECORDS SUMMARY | 2024-12-01 13:46 | XMS_ITS | Encounter Summary ---
Author Organization [facility] Address [address] [place] [address] Care Team Providers Care Logistics Tech Name Role Phone Marjorie Viveros MD Primary Care Provider [phone] Reason for Referral * EXTERNAL (Routine) - Authorized/Booked Specialty Diagnoses / Procedures Referred By Contac t Referred To Contact Ophthalmology Procedures REFERRAL TO EXTERNAL OPHTHALMOLOGY Marjorie Viveros MD [address] [place] [address] [address] [place] [address] Referral ID Status Reason Start Date Expiration Date V isits Requested Visits Authorized [id number] Authorized/B ooked 02/26/2023 06/05/2023 1 1 Reason for Visit * Reason Onset Date Comments REFERRAL 02/25/2023 Encounter Details Date Type Department Care Team Description 02/25/2023 Pt. Non Urgent Medical Question Adult Medicine [address] [address] Marjorie Viveros MD [address] [place], [place] [phone] Social History Tobacco Use Types Packs/Day Years [...] AM EDT documented as of this encounter Miscellaneous Notes * Telephone Encounter - Elisabet Campbell M.A. - 02/25/2023 12:05 PM EDTFrom: Viji Valencia To: Sally Viveros Sent: 02/25/2023 11:46 AM EDT Subject: Referral Request I would like a referral for an ophthalmology appointment with Dr Juju Britton Apr.25. This is an annual exam and cataract follow up. The information for her office: [address] [place] [phone] Thank You documented in this encounter Plan of Treatment Not on file documented as of this encounter Visit Diagnoses Not on filedocumented in this encounter Care Teams Logistics Tech Relationship Specialty Start Date End Date Marjorie Viveros MD [address] [place] [address] PCP - General Internal Medicine 01/13/21 documented as of this encounter
--- OUTSIDE RECORDS SUMMARY | 2024-12-01 13:46 | XMS_ITS | Encounter Summary ---
Author Organization [facility] Address [address] [place] [address] Care Team Providers Care Textile Machine Maintenance Mechanic Name Role Phone Pebbles Landry MD Primary Care Provider Marjorie Good MD Primary Care Provider [phone] Encounter Details Date Type Department Care Team Description 12/26/2012 Orders Only Mammography - [address] [address] Pebbles Landry MD Social History Tobacco Use Types Packs/Day Years [...] on filedocumented in this encounter Care Teams Textile Machine Maintenance Mechanic Relationship Specialty Start Date End Date Pebbles Landry MD PCP - General Internal Medicine 04/01/12 01/12/21 Marjorie Viveros MD [address] [place] [address] PCP - General Internal Medicine 01/13/21 documented as of this encounter
--- OUTSIDE RECORDS SUMMARY | 2024-12-01 13:46 | XMS_ITS | Encounter Summary ---
Author Organization [facility] Address [address] [place] [address] Care Team Providers Care Hot Tar Roofer Helper Name Role Phone Pebbles Landry MD Primary Care Provider Marjorie Good MD Primary Care Provider [phone] Encounter Details Date Type Department Care Team Description 01/11/2021 Pt. Referral Request [facility] Ashlee [address] [place] [address] Md Ashlee Social History Tobacco Use Types [...] Exposure Response Date Recorded In the last month, have you been in contact with someone who was confirmed or suspected to have Coronavirus / COVID-19? No / Unsure 12/14/2020 9:53 AM EDT documented as of this encounter Plan of Treatment Not on file documented as of this encounter Visit Diagnoses Not on filedocumented in this encounter Care Teams Hot Tar Roofer Helper Relationship Specialty Start Date End Date Pebbles Landry MD PCP - General Internal Medicine 04/01/12 01/12/21 Marjorie Viveros MD [address] [place] [address] PCP - General Internal Medicine 01/13/21 documented as of this encounter
== END 2024-12-01 11:43 | disposition home or self-care (01) ==
LOC: HO.HVS 11:09
PROVIDERS: PCP Internal Medicine; Visit Provider Surgery Vascular Surgery
DX: I26.09 Other pulmonary embolism with acute cor pulmonale (principal)
CPT/HCPCS: 99214

== ENCOUNTER → 2024-12-01 11:09 | Outpatient (BNVA) | payer OTHER, SELFPAY | PROVIDERS: PCP Internal Medicine; Visit Provider Surgery Vascular Surgery | DX: I26.09 Other pulmonary embolism with acute cor pulmonale (principal) | CPT/HCPCS: 99212 ==

== ENCOUNTER → 2024-12-10 10:55 | Outpatient (REF) | payer OTHER, SELFPAY ==
--- OUTSIDE RECORDS SUMMARY | 2024-12-10 12:51 | XMS_ITS | Encounter Summary ---
Author Organization [facility] Address [address] [place] [address] Care Team Providers Care Oil Furnace Installer Name Role Phone Pebbles Landry MD Primary Care Provider Marjorie Good MD Primary Care Provider [phone] Encounter Details Date Type Department Care Team Description 12/26/2012 Orders Only Mammography - [address] [address] Pebbles Landry MD Social History Tobacco Use [...] on filedocumented in this encounter Care Teams Oil Furnace Installer Relationship Specialty Start Date End Date Pebbles Landry MD PCP - General Internal Medicine 04/01/12 01/12/21 Marjorie Viveros MD [address] [place] [address] PCP - General Internal Medicine 01/13/21 documented as of this encounter
--- OUTSIDE RECORDS SUMMARY | 2024-12-10 12:51 | XMS_ITS | Encounter Summary ---
Author Organization [facility] Address [address] [place] [address] Care Team Providers Care School Guard Name Role Phone Marjorie Viveros MD Primary Care Provider [phone] Encounter Details Date Type Department Care Team Description 07/22/2023 Orders Only Adult Medicine [facility] [address] [place] [address] Lauryn Fernández PA-C [address] [place] [address] Vitamin D deficiency (Primary Dx); Hypercholesterolemia; Osteopenia, [...] IF PERFORMED (07/25/2023 9:18 AM EST) Pathologist [facility] VITAMIN D, 25-HYDROXY 32 30 - 80 ng/mL 07/25/2023 12:39 PM EST [facility] 07/25/2023 9:18 AM EST 07/25/2023 9:18 AM EST Narrative [facility] - 07/25/2023 12:39 PM EST Release to patient->Immediate Lauryn Fernández PA-C LAB [facility] * (ABNORMAL) CHG BLOOD COUNT COMPLETE AUTO&AUTO DIFRNTL WBC (07/25/2023 9:18 AM EST) Pathologist [facility] WHITE BLOOD COUNT 4.9 4.8 - 10.8 x10-3/uL 07/25/2023 12:21 PM EST [facility] RED BLOOD COUNT 4.5 3.8 - 4.8 [...] to patient->Immediate Lauryn Fernández PA-C LAB [facility] * (ABNORMAL) CHG LIPID PANEL (07/25/2023 9:18 [...] to patient->Immediate Lauryn Fernández PA-C LAB [facility] * (ABNORMAL) CHG COMPREHENSIVE METABOLIC PANEL (07/25/2023 [...] hypercholesterolemia documented in this encounter Care Teams School Guard Relationship Specialty Start Date End Date Marjorie Viveros MD [address] [place] [address] PCP - General Internal Medicine 01/13/21 documented as of this encounter
--- OUTSIDE RECORDS SUMMARY | 2024-12-10 12:51 | XMS_ITS | Encounter Summary ---
Author Organization [facility] Address [address] [place] [address] Care Team Providers Care Incinerator Plant Laborer Name Role Phone Marjorie Viveros MD Primary Care Provider [phone] Reason for Referral * Consultation (Routine) - Closed Specialty Diagnoses / Procedures Referred By Contac t Referred To Contact Cardiology Diagnoses Other pulmonary embolism without acute cor pulmonale (CMS/HCC V24, CMS/HCC V28) Marjorie Viveros MD [address] [place] [address] Phone: tel: fax: Shelia Robledo, GEOVANY [address] [place] [phone] Phone: tel: Referral ID Status Reason Start Date Expiration Date V isits Requested Visits Authorized [id number] Closed Specialty Services Required 11/30/2024 11/30/2025 6 6 Reason for Visit * Reason Onset Date Comments Referral 11/30/2024 Encounter Details Date Type Department Care Team (Late st Contact Info) Description 11/30/2024 Telephone Adult Medicine [address] [address] Marjorie Viveros MD [address] [place] [address] Referral Social History Tobacco Use Types Packs/Day [...] for your loved ones. For example, child life therapist or elderly care for an older adult? [...] insurance does the patient have today? Payor: [facility]/@[facility]@ Referrals cannot be processed if the insurance is not accurate. If the insurance listed above is NO BILLING INFORMATION FOUND FOR THIS ENCOUNTER then the patients correct insurance must be obtainedand registered in [facility] or their referral can not be processed. Name of person calling to request this referral? Fax - [facility] Referred To Provider (Include first and last name): Shelia Robledo NPI (if known): [phone] Order/Specialty requested cardiology Chief Complaint (Note: This [...] Description 01/05/2025 11:30 AM EDT Office Visit Hematology Oncology [address] [place] [phone] Jorge Gómez MD [address] [place] [address] 02/02/2025 11:00 AM EDT Office [address], [place] [phone] Marjorie Viveros MD [address] [place] [address] 03/04/2025 10:30 AM EDT Appointment Radiology Department - [address] [phone] Scheduled Referrals Name Type Priority Associated Diagnoses Order Schedule Ambulatory referral to Cardiology Outpatient Referral Routine Other pulmonary embolism without acute cor pulmonale ([facility] V24, [facility] V28) Expected: 11/30/2024, Expires: 11/30/2025 documented as of this encounter Visit Diagnoses Diagnosis Other pulmonary embolism without acute cor pulmonale ([facility] V24, [facility] V28)- Primary Encounter for screening mammogram for breast cancer documented in this encounter Additional Health Concerns Assessment Noted Time PHQ-9 Depression Total Score: 0 07/27/20 24 8:10 PM EST documented as of this encounter Care Teams Incinerator Plant Laborer Relationship Specialty Start Date End Date Marjorie Viveros MD [address] [place] [address] PCP - General Internal Medicine 01/13/21 documented as of this encounter
--- OUTSIDE RECORDS SUMMARY | 2024-12-10 12:51 | XMS_ITS | Encounter Summary ---
Author Organization [facility] Address [address] [place] [address] Care Team Providers Care County [place] City Auditor Name Role Phone Pebbles Landry MD Primary Care Provider Marjorie Good MD Primary Care Provider [phone] Encounter Details Date Type Department Care Team Description 12/17/2013 Jewelry Drilling Machine Operator Report Medical Records [address] [place] [address] Adrianna Weir Social History Tobacco Use Types [...] on filedocumented in this encounter Care Teams [place] Auditor Relationship Specialty Start Date End Date Pebbles Landry MD PCP - General Internal Medicine 04/01/12 01/12/21 Marjorie Viveros MD [address] [place] [address] PCP - General Internal Medicine 01/13/21 documented as of this encounter
--- OUTSIDE RECORDS SUMMARY | 2024-12-10 12:51 | XMS_ITS | Encounter Summary ---
Author Organization [facility] Address [address] [place] [address] Care Team Providers Care Dehydrator Operator Name Role Phone Pebbles Landry MD Primary Care Provider aMrjorie Good MD Primary Care Provider [phone] Encounter Details Date Type Department Care Team Description 01/11/2021 Pt. Referral Request [facility] Ashlee [address] [place] [address] Md Ashlee Social History Tobacco Use Types [...] on filedocumented in this encounter Care Teams Dehydrator Operator Relationship Specialty Start Date End Date Pebblse Landry MD PCP - General Internal Medicine 04/01/12 01/12/21 Marjorie Viveros MD [address] [place] [address] PCP - General Internal Medicine 01/13/21 documented as of this encounter
--- OUTSIDE RECORDS SUMMARY | 2024-12-10 12:51 | XMS_ITS | Encounter Summary ---
Author Organization [facility] Address [address] [place] [address] Care Team Providers Care Rubber Heel And Sole Press Tender Name Role Phone Marjorie Viveros MD Primary Care Provider [phone] Reason for Visit * Reason Onset Date Comments Provider Call Back 10/30/2022 Encounter Details Date Type Department Care Team Description 10/30/2022 Telephone OBGYN - [place] [address] [place] [address] Jacklyn Musa, [facility] [address] [place] [address] Provider Call Back Social History Tobacco Use [...] for AG. Has learned from [facility] that Jacklyn is not credentialed with them so she has a bill. They have suggested that we resubmit in one of the Doctor's names then the bill will be paid. documented in this encounter Plan of Treatment Not on file documented as of this encounter Visit Diagnoses Not on filedocumented in this encounter Care Teams Rubber Heel And Sole Press Tender Relationship Specialty Start Date End Date Marjorie Viveros MD [address] [place] [address] PCP - General Internal Medicine 01/13/21 documented as of this encounter
--- OUTSIDE RECORDS SUMMARY | 2024-12-10 12:51 | XMS_ITS | Encounter Summary ---
Author Organization [facility] Address [address] [place] [address] Care Team Providers Care Heavy Forging Machine Operator Name Role Phone Marjorie Viveros MD Primary Care Provider [phone] Reason for Visit * Reason Onset Date Comments Mychart Rx Refill 01/15/2024 Encounter Details Date Type Department Care Team Description 01/15/2024 Refill Adult Medicine [facility] [address] [place] [address] Lauryn Fernández PA-C [address] [place] [address] Mychart Rx Refill Social History Tobacco Use [...] on filedocumented in this encounter Care Teams Heavy Forging Machine Operator Relationship Specialty Start Date End Date Marjorie Viveros MD [address] [place] [address] PCP - General Internal Medicine 01/13/21 documented as of this encounter
--- OUTSIDE RECORDS SUMMARY | 2024-12-10 12:52 | XMS_ITS | Clinical Summary ---
Author Organization [facility] Address [address] [place] [address] Care Team Providers Care Vp Communications Name Role Phone Marjorie Viveros MD Primary Care Provider [phone] Allergies No known active allergies Medications Medication [...] (External Completion), Additional history exists Care Teams Vp Communications Relationship Specialty Start Date End Date Marjorie Viveros MD [address] [place] [address] PCP - General Internal Medicine 01/13/21
--- OUTSIDE RECORDS SUMMARY | 2024-12-10 12:52 | XMS_ITS | Clinical Summary ---
Author Organization [facility] [address] [facility] Address [address] [place], [place] Phone Care Team Providers Care City Bailiff Name Role Phone Marjorie Viveros MD Primary Care Provider [phone] Allergies No known active allergies Medications cholecalciferol [...] left popliteal DVT, thrombectomy SVT (supraventricular tachycardia) ([facility] V24) 11/24/2024 Hypercholesterolemia 06/29/2024 Osteopenia 06/29/2024 Vitamin D deficiency 06/29/2024 Overweight (BMI 25.0-29.9) 06/29/2024 Encounters Date Type Department Care Team Description 11/30/[address] [phone] Marjorie Viveros MD Referral 11/24/2024 10:30 AM EDT Office Visit [address] [phone] Marjorie Viveros MD Multiple subsegmental pulmonary emboli without acute cor pulmonale ([facility] V24, [facility] V28) (Primary Dx); SVT (supraventricular tachycardia) ([facility] V24); Hypercholesterolemia; Pneumonia of right lower lobe due to infectious organism 11/17/[address] [phone] Yari Sen RN 11/17/[address] [phone] Alexia White [place] Hospital Follow-up 11/12/[address] [phone] Alexia White [place] Shortness of Breath 11/06/2024 10:30 AM EDT Office Visit [address] [phone] Marjorie Viveros MD Pneumonia of right lower lobe due to infectious organism (Primary Dx); Influenza A; Acute respiratory failure with hypoxia ([facility] V24, [facility] V28) 10/30/2024 Telephone Adult [address] [phone] Marjorie Viveros MD Hospital Follow-up 10/26/2024 1:00 PM EDT Office Visit [address] [phone] Lucila Garcia PA Shortness of breath (Primary Dx); Tachycardia 10/26/2024 Nurse Triage [address] [phone] Marjorie Viveros MD Fever; Flu Symptoms from [...] Bivalent, Or iginal + Ba.1 (Non-US [employer]adem[employer] B[employer]) 06/24/2022 [email or web address] SARS-CoV-2 COVID-19, mRNA, LNP-S, preservative free 05/23/2021 [...] D deficiency 08/01/2022 Hypercholesterolemia 06/29/2024 Pulmonary emboli ([facility] V2 4, [facility] V28) 11/24/2024 Submassive, bilateral with l eft popliteal DVT, thrombectomy SVT (supraventricular tachyc ardia) ([facility] V24) 11/24/2024 Family History Medical History Relation [...] for your loved ones. For example, child study team director or elderly care for an older [...] Description 01/05/2025 11:30 AM EDT Office Visit [facility] Hematology Oncology [address] [place] [phone] Jorge Gómez MD [address] [place] [address] 02/02/2025 11:00 AM EDT Office Visit Adult Medicine [facility] - [address] [phone] Marjorie Viveros MD [address] [place] [phone] 03/04/2025 10:30 AM EDT Appointment Radiology Department - [address] [phone] Health Maintenance Due Date Last Done Comments [...] LAB CHEMISTRY METHOD 08/05/2024 12:[address] [facility] Triglycerides 193(H) 0 - 150 mg/dL LAB CHEMISTRY METHOD 08/05/2024 12:[address] [facility] HDL 75 >=40 mg/dL LAB CHEMISTRY METHOD 08/05/2024 12:[address] [facility] LDL Calculated 93 0 - 100 mg/dL LAB CHEMISTRY METHOD 08/05/2024 12:[address] [facility] VLDL Cholesterol Rolando 38.6 mg/dL LAB CHEMISTRY METHOD 08/05/2024 12:[address] [facility] Non HDL Chol. (LDL+VLDL) 132 <145 mg/dL LAB CHEMISTRY METHOD 08/05/2024 12:[address] [facility] Chol/HDL Ratio 2.8 0.0 - 4.4 LAB CHEMISTRY METHOD 08/05/2024 12:[address] [facility] Blood Venous blood specimen / Unknown Venipuncture / Unknown 08/05/2024 9:17 AM EST 08/05/2024 9:17 AM EST us Lauryn ORTEGA LAB BLOOD ORDERABLES Final Re sult [facility] [address] [place] [address], * SCREENING MAMMOGRAPHY BI 2-VIEW BREAST INC [...] (World Health Organization Fracture Risk Assessment) [facility] Department of Internal Medicine recommends using [...] (World Health Organization Fracture Risk Assessment) [facility] Department of Internal Medicine recommendsusing National [...] Resu lt * Hepatitis C Screening (12/31/2013) [facility] Hepatitis C Screening abstracted Historical Provider HEALTH MAINTENANCE Final Result from Last 3 Months or Most Recently Relevant to Health Maintenance Insurance MEDICARE [facility] Care Teams City Bailiff Relationship Specialty Start Date End Date Marjorie Viveros MD [address] [place] [address] PCP - General Internal Medicine 01/13/21
== END ==
LOC: HO.CARD 10:55
PROVIDERS: PCP Internal Medicine; Visit Provider Nurse Practitioner Family
DX: I47.10 Supraventricular tachycardia, unspecified (principal)
CPT/HCPCS: 93242

== ENCOUNTER → 2024-12-10 11:01 | Outpatient (BNV) | payer OTHER, SELFPAY | PROVIDERS: PCP Internal Medicine; Visit Provider Internal Medicine | DX: I47.10 Supraventricular tachycardia, unspecified (principal) | CPT/HCPCS: 93244 ==

== ENCOUNTER 2025-03-22 08:33 | Outpatient (AMB) | payer OTHER, SELFPAY ==
--- OUTSIDE RECORDS SUMMARY | 2025-03-22 08:55 | XMS_ITS | Clinical Summary ---
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 Active calcium carbonate-vitam in D 600 mg-10 mcg (400 unit) per tablet Take 1 tablet by mouth 2 (two) times a day. Active metoprolol tartrate (LOPRESSOR) 25 mg tablet Take 2 tablets (50 mg total) by mouth 2 (two) times a day. 360 tablet 1 11/24/2024 Active Eliquis 5 mg tablet Take 1 tablet (5 mg total) by mouth 2 (two) times a day. 180 tablet 1 11/24/2024 Active atorvastatin (LIPITOR) 20 mg tablet TAKE 1 TABLET BY MOUTH AT BEDTIME 90 each 1 01/05/2025 Active Active Problems Problem Noted Date Diagnosed Date Pulmonary emboli ([facility] V24, [facility] V28) 03/2025 Overview (11/24/2024): Submassive, bilateral with left popliteal DVT, thrombectomy SVT (supraventricular tachycardia) ([facility] V24) 11/24/2024 Hypercholesterolemia 06/29/2024 Osteopenia 06/29/2024 Vitamin D deficiency 06/29/2024 Overweight (BMI 25.0-29.9) 06/29/2024 Encounters Date Type Department Care Team Description 03/12/2025 2:50 PM EDT - 03/12/2025 11:59 PM EDT Hospital Encounter Radiology Department - [address] [phone] Encounter for screening mammogram for breast cancer Discharge Disposition: Home or Self Care 02/02/2025 11:00 AM EDT Office Visit Adult Medicine [address] [phone] Marjorie Viveros MD Hypercholesterolemia (Primary Dx); SVT (supraventricular tachycardia) ([facility] V24); Multiple subsegmental pulmonary emboli without acute cor pulmonale ([facility] V24, [facility] V28); Vitamin D deficiency; Osteopenia, unspecified location 01/27/2025 11:14 AM EDT - 01/27/2025 11:59 PM EDT Hospital Encounter XRAY - [address] [phone] Pneumonia of right lower lobe due to infectious organism Discharge Disposition: Home or Self Care 01/05/2025 11:30 AM EDT Office Visit [facility] Hematology Oncology [address] [place] [phone] Jorge Gómez MD Multiple subsegmental pulmonary emboli without acute cor pulmonale ([facility] V24, [facility] V28) 12/22/2024 11:45 AM EDT - 12/22/2024 11:59 PM EDT Hospital Encounter [address] [phone] Pneumonia of right lower lobe due to infectious organism Discharge Disposition: Home or Self Care from Last 3 Months Immunizations Name Administration [...] 12 & older) [employer], COVID-19 05/17/2023,06/24/2022 [facility] [place] Covid-19 Bivalent, Or iginal + Ba.1 (Non-US Trademark [employer] Bivalent) 06/24/2022 [place] [place] SARS-CoV-2 COVID-19, mRNA, LNP-S, preservative free 05/23/2021 [...] D deficiency 08/01/2022 Hypercholesterolemia 06/29/2024 Pulmonary emboli ([facility] V2 4, [facility] V28) 11/24/2024 Submassive, bilateral with l eft popliteal DVT, thrombectomy SVT (supraventricular tachyc ardia) ([facility] V24) 11/24/2024 Family History Medical History Relation [...] your loved ones. For example, child care specialist or elderly care for an older adult? [...] Sexual Orientation Not on file Obstetrics History Para Term AB IAB SAB Ectopic Multiple Livin g Live Births 3 3 3 3 Date Outcome GA Total Labor Labor/2nd/3rd Weight Sex Type Anes PTL Odrys A1 A5 Name Clin Term Term Term Last Filed Vital Signs Vital Sign Reading Time Taken Comments Blood Pressure 110/70 02/02/2025 11:14 AM EDT Pulse 56 02/02/2025 11:14 AM EDT Temperature 36.2 C (97.2 F) 02/02/2025 11:14 AM EDT Respiratory Rate 16 02/02/2025 11:1 4 AM EDT Oxygen Saturation 98% 02/02/2025 11: 14 AM EDT Inhaled Oxygen Concentration - - Weight 67.5 kg (148 lb 14.4 oz) 025 11:14 AM EDT Height 165.1 cm (5' 5 ) 02/02/2025 11:1 4 AM EDT Body Mass Index 24.78 02/02/2025 11:14 AM EDT Plan of Treatment Upcoming Encounters Date Type Department Care Team (Late st Contact Info) Description 08/04/2025 11:30 AM EST Office Visit Adult Medicine [facility] [address] [place] [phone] Lauryn Fernández PA [address] [place] [address] Health Maintenance Due Date Last Done Comments Colorectal Cancer Screening: Colonoscopy 07/28/2022 RSV Immunization Adult Patients (1 - 1-dose 75+ series) 2024 Depression Screening 08/19/2024 07/27/2024 COVID-19 Vaccine ( season) 2024 04/28/2024, 05/17/2023, 05/17/2023, Additional history exists Influenza Vaccine (#1) 2025 , 04/29/2023, 04/29/2023, Additional history exists Social Influencers of Health Screening 07/27/2025 07/27/2024 Falls Risk Assessment 08/03/2025 08/03/2024 Cholesterol Screening (Lipid Panel) 08/05/2029 08/05/2024, 07/25/2023 DTaP,Tdap,and Td Vaccines (4 - Td or Tdap) 07/31/2033 07/31/2023, 12/05/2022, 12/01/2012 Osteoporosis Screening (Bone Density Screening) 10/03/2033 10/03/2023, 12/14/2020, 04/29/2017 Hepatitis C Screening Completed 12/31/2013 Pneumococcal Vaccine: 50+ Years Completed 03/29/2016, 12/23/2014 Zoster Vaccines Completed 06/23/2020, 04/21/2020 Breast Cancer Screening Discontinued 03/12/20, 02/26/2024, 02/26/2024, Additional history exists HIB Vaccines Aged Out [...] Procedure Name Priority Date/Time Associated Diagnosis Comments MG MAMMO DIGITAL SCREENING W CHESTER BILAT Routine 03/12/2025 3:17 PM EDT Encounter for screening mammogram for breast cancer XR CHEST 2 VIEWS Routine 01/27/2025 11:2 5 AM EDT Pneumonia of right lower lobe due to infectious organism XR CHEST 2 VIEWS Routine 12/22/2024 11:5 8 AM EDT Pneumonia of right lower lobe due to infectious organism LIPID PANEL WITH REFLEX TO DIRECT LDL Routine 08/05/2024 9:17 AM EST Hypercholesterolemia DXA BONE DENSITY STUDY 1+ SITS AXIAL SKEL Routine 10/03/2023 2:37 PM EST Other specified disorders of bone density and structure, unspecified site HM HEPATITIS C SCREENING Routine 12/31/2013 from Last 3 Months or Most Recently Relevant to Health Maintenance Results * MG Mammo Digital Screening w Chester bilat (03/12/2025 3:17 PM EDT) Anatomical Region Laterality Modality Breast Bilateral Mammography 03/15/2025 1:31 PM EDT Impressions 03/15/2025 1:32 PM EDT No mammographic evidence for malignancy. BI-RADS CATEGORY: 1 - NEGATIVE RECOMMENDATION: Screening bilateral mammogram is recommended in 1 year. Mammo Location: [facility], [address] [place] [address], [id number], . -------- FINAL REPORT -------- Dictated By: Elisa Bean Dictated Date: 03/15/2025 13:31 ET Assigned Physician: Elisa Bean Reviewed and Electronically Signed By: Elisa Bean Signed Date: 03/15/2025 13:32 ET Workstation ID: [id number] Transcribed By: Self Edit Transcribed Date: 03/15/2025 13:31 ET Narrative 03/15/2025 1:32 PM EDT Bilateral screening mammogram. CLINICAL: 74 years old, Female, routine annual exam. COMPARISON: Prior mammograms, latest from 02/26/2024. TECHNIQUE: Bilateral MLO and CC views were obtained digitally with 2-D C views and 3-D mammogram (digital breast tomosynthesis). Computer-aided detection was utilized in evaluation of this exam (CAD). FINDINGS: There is no evidence of suspicious mass or architectural distortion. No worrisome calcifications are evident. There has been no significant change from prior exam(s). BREAST DENSITY: B - There are scattered areas of fibroglandular density. Procedure Note Elisa Bean MD - 03/15/2025 Bilateral screening mammogram. CLINICAL: 74 years old, Female, routine annual exam. COMPARISON: Prior mammograms, latest from 02/26/2024. TECHNIQUE: Bilateral MLO and CC views were obtained digitally with 2-D Cviews and 3-D mammogram (digital breast tomosynthesis). Computer-aideddetection was utilized in evaluation of this exam (CAD). FINDINGS: There is no evidence of suspicious mass or architectural distortion. Noworrisome calcifications are evident. There has been no significantchange from prior exam(s). BREAST DENSITY: B - There are scattered areas of fibroglandular density. IMPRESSION: No mammographic evidence for malignancy. BI-RADS CATEGORY: 1 - NEGATIVE RECOMMENDATION: Screening bilateral mammogram is recommended in 1 year. Mammo Location: [facility], [address] [place] [address], [id number], . -------- FINAL REPORT -------- Dictated By: Rokhlenko, Elisa Dictated Date: 03/15/2025 13:31 ET Assigned Physician: Elisa Bean Reviewed and Electronically Signed By: Elisa Bean Signed Date: 03/15/2025 13:32 ET Workstation ID: [id number] Transcribed By: Self Edit Transcribed Date: 03/15/2025 13:31 ET Marjorie Viveros MD IMG BI PROCEDURES Final Result * XR Chest 2 Views (01/27/2025 11:25 AM EDT) Only the most recent of2 resultswithin the time period is included. Anatomical Region Laterality Modality Body Radiographic Antionette ging 01/27/2025 11:3 1 AM EDT Impressions 01/27/2025 11:34 AM EDT Continued resolving right lower lobe infiltrate minimal residual scarring/atelectasis/infiltrate. -------- FINAL REPORT -------- Dictated By: Alesha Pepe Dictated Date: 01/27/2025 11:31 ET Assigned Physician: Alesha Pepe Reviewed and Electronically Signed By: Alesha Pepe Signed Date: 01/27/2025 11:34 ET Workstation ID: [id number] Transcribed By: Self Edit Transcribed Date: 01/27/2025 11:31 ET Narrative 01/27/2025 11:34 AM EDT CHEST, TWO VIEWS HISTORY: Follow-up pneumonia . TECHNIQUE: Frontal and lateral views of the chest. PRIOR: Chest x-ray 12/22/2024 and 11/12/2024. FINDINGS: There is minimal residual opacity at the lateral right lung base, and this has improved since the previous study. No pleural effusion is seen. No pneumothorax is seen. The cardiac diameter is within normal limits. No acute or aggressive appearing bony abnormalities are seen. Procedure Note Alesha Pepe MD - 01/27/2025 CHEST, TWO VIEWS HISTORY: Follow-up pneumonia . TECHNIQUE: Frontal and lateral views of the chest. PRIOR: Chest x-ray 12/22/2024 and 11/12/2024. FINDINGS: There is minimal residual opacity at the lateral right lung base, and thishas improved since the previous study. No pleural effusion is seen. No pneumothorax is seen. The cardiac diameter is within normal limits. No acute or aggressive appearing bony abnormalities are seen. IMPRESSION: Continued resolving right lower lobe infiltrate minimal residualscarring/atelectasis/infiltrate. -------- FINAL REPORT -------- Dictated By: Alesha Pepe Dictated Date: 01/27/2025 11:31 ET Assigned Physician: Alesha Pepe Reviewed and Electronically Signed By: Alesha Pepe Signed Date: 01/27/2025 11:34 ET Workstation ID: [id number] Transcribed By: Self Edit Transcribed Date: 01/27/2025 11:31 ET us Marjorie Viveros MD IMG XR PROCEDURES Final Result * (ABNORMAL) Lipid panel with reflex to direct LDL (08/05/2024 9:17 AM EST) Cholesterol 207(H) 0 - 200 mg/dL LAB CHEMISTRY METHOD 08/05/2024 12:17 PM [facility] Triglycerides 193(H) 0 - 150 mg/dL LAB CHEMISTRY METHOD 08/05/2024 12:17 PM [facility] HDL 75 >=40 mg/dL LAB CHEMISTRY METHOD 08/05/2024 12:17 PM [facility] LDL Calculated 93 0 - 100 mg/dL LAB CHEMISTRY METHOD 08/05/2024 12:17 PM [facility] VLDL Cholesterol Rolando 38.6 mg/dL LAB CHEMISTRY METHOD 08/05/2024 12:17 PM [facility] Non HDL Chol. (LDL+VLDL) 132 <145 mg/dL LAB CHEMISTRY METHOD 08/05/2024 12:17 PM [facility] Chol/HDL Ratio 2.8 0.0 - 4.4 LAB CHEMISTRY METHOD 08/05/2024 12:17 PM [facility] Blood Venous blood specimen / Unknown Venipuncture / Unknown 08/05/2024 9:17 AM EST 08/05/2024 9:17 AM EST us Lauryn ORTEGA LAB BLOOD ORDERABLES Final Re sult [facility] [address] [place] [address], * DXA BONE DENSITY STUDY 1+ SITS AXIAL SKEL (10/03/2023 2:37 PM EST) Anatomical Region Laterality Modality Bone Densitometr y 07/31/2023 11:3 1 AM EST Narrative 10/03/2023 6:24 PM EST BONE DENSITY Lumbar Spine T-score is -0.9 (SD relative to 20-29 y/o adult) Z-score is +1.5 (SD relative to age matched peers) This is normal by criteria defined by the WHO. Left Hip T-score is -1.5 Z-score is +0.5 This is consistent with osteopenia by criteria defined by the WHO. Comparison exam(s): significant increase in bone density of hip when compared to most recent bone density examination Confidence level is +/-95%. Impression: Based on the World Health Organization criteria, Rene Rosales should be classified as having osteopenia. This patient has a 11% risk of major osteoporotic fracture and a 2.1% risk of hip fracture over the next 10 years. (World Health Organization Fracture Risk Assessment) [facility] Department of Internal Medicine recommends [...] Based on the World Health Organization criteria, Rene Rosales should beclassified as having osteopenia. This patient has a 11% risk of majorosteoporotic fracture and a 2.1% risk of hip fracture over the next 10years. 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
--- NOTE | 2025-03-22 09:10 | MHC.OFFVIS ---
Vital Signs 03/22/25 09:29 Height 5 ft 5 in Weight 147 lb 11.355 oz BMI 24.6 BP 116/68 Blood Pressure Location Lt brachial Position Sitting Intake Visit Reasons: 3 mth f/up holter DC Intake Note: 3 month follow-up after holter c/o racing heart rate can last about 1/2 hour about 137 Vegetable Buncher Required: No Manager Systems: Manager Systems Present Accompanied by: Spouse Allergies No Known Allergies Allergy (Verified 12/01/24 11:14) Medication List - Last Reconciled 03/22/25 by Edwin Kamara MD apixaban (Eliquis) 5 mg PO BID atorvastatin 20 mg PO BEDTIME calcium carbonate-vitamin D3 600 mg-5 mcg (200 unit) 1 tab PO DAILY metoprolol tartrate 50 mg See Protocol PO BID HPI Comments Details: Viji comes for follow-up after Holter monitor that was done in November. The Holter monitor did confirmed presence of fast heart rate consistent with atrial tachycardia and atrial fibrillation. Patient has been taking metoprolol. She continues to have symptoms of rapid heart rate which happens without any clear triggers. Can happen at nighttime when she is trying to get into better when she wakes up. She feels her heart rate racing and she confirms that with a pulse ox at heart rate in the 140 range. She does have symptoms of not feeling well initially when she starts and then has rapid heart rate. She tries to do her Valsalva maneuvers but without any success. Symptoms last for about up to 30 minutes. Patient denies any lightheadedness, syncope. She has not had any worsening symptoms of shortness of breath, orthopnea, PND. She takes all her medications including Eliquis religiously. No excessive caffeine or alcohol intake. She does complain of exertional shortness of breath when she walks in humid weather. [facility] Medical History SVT (supraventricular tachycardia) Pulmonary emboli Right lower lobe pneumonia HLD (hyperlipidemia) Social History Household Members: Significant Other Household Members Other:: 2 Housing: House Do you presently have visiting nurse or other home services: No Alcohol intake: current Alcohol intake frequency: holidays/special occasions only Patient Tobacco Use Status: Never used Tobacco Second Hand Smoke Exposure: No service: No Review of Systems Const Denies chills, Denies fatigue, Denies fever(s), Denies frequent falls, Denies weakness, Denies weight gain and Denies weight loss ENT Denies dizziness Card Denies chest pain, Denies leg edema, Denies lightheadedness, Denies palpitations, Denies dyspnea, Denies dyspnea on exertion, Denies orthopnea and Denies other (loss of consciousness) Resp Denies cough, Denies dyspnea and Denies dyspnea on exertion GI Denies hematochezia and Denies change in stool character Musc Denies abnormal gait, Denies muscle weakness, Denies numbness, Denies radiating pain into limb and Denies tingling Neuro Denies abnormal gait, Denies dizziness, Denies frequent falls, Denies numbness, Denies tingling and Denies weakness Endo Denies fatigue and Denies palpitations Physical Exam Vital Signs: Last Vital Signs BP 116/68 03/22/25 09:29 BMI result Body Mass Index 24.6 Const General: cooperative, healthy appearing, comfortable and no acute distress Orientation/consciousness: patient oriented x3 Neck Neck: Yes normal visual inspection and Yes no JVD Resp Effort & Inspection: normal respiratory effort Auscultation: clear to auscultation bilaterally, no rales, no rhonchi and no wheezes Cardio Rate: regular rate Rhythm: regular rhythm Heart sounds: S1 normal heart sound present, S2 normal heart sound present, no gallops, no murmurs and no rubs Neuro General: patient oriented x3 Extrem General: Yes normal to inspection, No no pedal edema and No calf tenderness Psych Appearance: grossly normal Mental Status: mental status grossly normal Speech and movement: Normal speech and movement present Assessment & Plan Assessment & Plan (1) Paroxysmal atrial fibrillation: Code(s): I48.0 - Paroxysmal atrial fibrillation Category: Medical Plan: Highly symptomatic rapid heart rate which is most suggestive of on a Holter monitor to be paroxysmal atrial fibrillation. Patient is very symptomatic with it. At this point time patient will be needing further rhythm control approach with antiarrhythmic drug. Will start her on Multaq 400 mg b.i.d.. Discussed the efficacy and mechanism of action of the Multaq is supposed to metoprolol therapy. He had a long discussion about treatment plan for pursuing rhythm control approach and reducing her symptom burden as well as reducing risk of persistent atrial fibrillation. Will reduce metoprolol to 25 mg b.i.d.. Avoidance of stimulants was discussed. Given that high likelihood of atrial fibrillation suggestive of atrial fibrillation Holter monitor I would suggest a continue Eliquis lifelong given her age 1 for thromboembolic protection. She understands agrees. Follow-up EKG 1 week after starting Multaq therapy. Also obtain a Holter monitor in a month's time on Multaq therapy to assess response. Also suggested her to consider investing in smart phone based EKG device. She will look into it. Continue blood pressure control. Continue maintain activity level as tolerated. (2) Short of breath on exertion: Code(s): R06.02 - Shortness of breath Plan: She does have exertional shortness of breath especially when she walks any humid weather. At this point time need to rule out myocardial ischemia. Would suggest exercise myocardial perfusion imaging to evaluate for the same. However given her exposure to secondhand smoke that has likelihood of underlying COPD and if her stress test is normal suggest her to undergo pulmonary function test which will be pursued through your office. Continue rhythm control approach as above. Follow up in the clinic in 3 months time, sooner p.r.n.. Thank you for allowing me to partake in her care Orders: Orders ECG 7 day holter monitor 1 Month I48.0 - Paroxysmal atrial fibrillation Medications: New dronedarone (Multaq) must administer with a meal/food 400 mg PO BID 60 tabs 3RF Changed From metoprolol tartrate 50 mg See Protocol PO BID To metoprolol tartrate 25 mg See Protocol PO BID Coding Level of Care Code Est Pt Level 4 (35869) Complex EM visit Add On G2211 Diagnoses Paroxysmal atrial fibrillation I48.0 Short of breath on exertion R06.02
[2025-03-22 09:29] VITALS: BP 116/68; BMI 24.6
== END 2025-03-22 10:06 | disposition home or self-care (01) ==
LOC: HO.HCS 08:33
PROVIDERS: PCP Internal Medicine; Visit Provider Internal Medicine Cardiovascular Disease
DX: I48.0 Paroxysmal atrial fibrillation (principal); R06.02 Shortness of breath
CPT/HCPCS: 99214

== ENCOUNTER → 2025-03-22 08:33 | Outpatient (BNVA) | payer OTHER, SELFPAY | PROVIDERS: PCP Internal Medicine; Visit Provider Internal Medicine Cardiovascular Disease | DX: Z71.2 Person consulting for explanation of examination or test findings (principal); I48.0 Paroxysmal atrial fibrillation; R06.02 Shortness of breath | CPT/HCPCS: 99212 ==

== ENCOUNTER → 2025-04-22 13:06 | Outpatient (REF) | payer OTHER, SELFPAY ==
--- NOTE | 2025-04-22 13:09 | HM_ITS ---
* Total monitoring time 7 days. * Underlying rhythm is sinus with an average rate of 51/Min. About 92% of the time, rate < 60/Min. * Rare supraventricular ectopy. * Rare ventricular ectopy. * No significant pauses or high-grade AV blocks. * No patient markers or diary events. MTDD
--- OUTSIDE RECORDS SUMMARY | 2025-04-22 14:21 | XMS_ITS | Clinical Summary ---
Author Organization [facility] [address] [facility] Address [address] [place], [place] Phone Care Team Providers Care Accounts Payable Assistant Name Role Phone Marjorie Viveros MD Primary Care Provider [phone] Allergies No known active allergies Medications cholecalciferol [...] Problem Noted Date Diagnosed Date Pulmonary emboli ([facility] V24, [facility] V28) 03/2025 Overview (11/24/2024): Submassive, bilateral with left popliteal DVT, thrombectomy SVT (supraventricular tachycardia) ([facility] V24) 11/24/2024 Hypercholesterolemia 06/29/2024 Osteopenia 06/29/2024 Vitamin D deficiency 06/29/2024 Overweight (BMI 25.0-29.9) 06/29/2024 Encounters Date Type Department Care Team Description 03/12/2025 2:50 PM EDT - 03/12/2025 11:59 PM EDT Hospital Encounter Radiology Department - [address] [phone] Encounter for screening mammogram for breast cancer Discharge Disposition: Home or Self Care 02/02/2025 11:00 AM EDT Office Visit Adult Medicine [address] [phone] Marjorie Viveros MD Hypercholesterolemia (Primary Dx); SVT (supraventricular tachycardia) ([facility] V24); Multiple subsegmental pulmonary emboli without acute cor pulmonale (CMS/[facility] V24, CMS/[facility] V28); Vitamin D deficiency; Osteopenia, unspecified location 01/27/2025 11:14 AM EDT - 01/27/2025 11:59 PM EDT Hospital Encounter XRAY - [address] [phone] Pneumonia of right lower lobe due to [...] 12 & older) Biv alent, COVID-19 05/17/2023,06/24/2022 [employer] Covid-19 Bivalent, Or iginal + Ba.1 (Non-US Trademark [employer] Bivalent) 06/24/2022 [employer] SARS-CoV-2 COVID-19, mRNA, LNP-S, preservative free 05/23/2021 [...] D deficiency 08/01/2022 Hypercholesterolemia 06/29/2024 Pulmonary emboli ([facility] V2 4, CMS/HCC V28) 11/24/2024 Submassive, bilateral with l eft popliteal DVT, thrombectomy SVT (supraventricular tachyc ardia) (CMS/[facility] V24) 11/24/2024 Family History Medical History Relation [...] care for your loved ones. For example, residential child care counselor or elderly care for an older adult? [...] Labor Labor/2nd/3rd Weight Sex Type Anes PTL Dorys A1 A5 Name Clin Term Term Term [...] 11:30 AM EST Office Visit Adult Medicine [address] [phone] Lauryn Fernández PA [address] [place] [address] 03/16/2026 9:20 AM EDT Appointment Radiology Department - [address] [phone] Health Maintenance Due Date Last Done Comments Colorectal Cancer Screening: Colonoscopy 07/28/2022 RSV Immunization Adult Patients (1 - 1-dose 75+ series) 2024 Depression Screening 08/19/2024 07/27/2024 COVID-19 Vaccine (2023- season) 2025 04/28/2024, 05/17/2023, 05/17/2023, Additional history exists Influenza [...] is recommended in 1 year. Mammo Location: [facility], [address] [place] [address], [facility], . -------- FINAL REPORT -------- Dictated By: Elisa Bean Dictated Date: 03/15/2025 13:31 ET Assigned Physician: Elisa Bean Reviewed and Electronically Signed By: Elisa Bean Signed Date: 03/15/2025 13:32 ET Workstation ID: [id number] Transcribed By: Self Edit Transcribed Date: 03/15/2025 [...] is recommended in 1 year. Mammo Location: [facility], [address] [place] [address], [id number], . -------- FINAL REPORT -------- Dictated By: Elisa Bean Dictated Date: 03/15/2025 13:31 ET Assigned Physician: Elisa Bean Reviewed and Electronically Signed By: Elisa Bean Signed Date: 03/15/2025 13:32 ET Workstation ID: [id number] Transcribed By: Self Edit Transcribed Date: 03/15/2025 13:31 ET us Marjorie Viveros MD IMG BI PROCEDURES Final Result * XR Chest 2 Views (01/27/2025 11:25 AM EDT) Anatomical Region Laterality Modality Body Radiographic Antionette ging 01/27/2025 11:3 1 AM EDT Impressions 01/27/2025 11:34 AM EDT Continued resolving right lower lobe infiltrate minimal residual scarring/atelectasis/infiltrate. -------- FINAL REPORT -------- Dictated By: Alesha Pepe Dictated Date: 01/27/2025 11:31 ET Assigned Physician: Alesha Pepe Reviewed and Electronically Signed By: Alesha Pepe Signed Date: 01/27/2025 11:34 ET Workstation ID: [id number] Transcribed By: Self Edit Transcribed Date: 01/27/2025 [...] Signed Date: 01/27/2025 11:34 ET Workstation ID: [id number] Transcribed By: Self Edit Transcribed Date: 01/27/2025 11:31 ET Marjorie Viveros MD IMG XR PROCEDURES Final Result * (ABNORMAL) Lipid panel with reflex to direct LDL (08/05/2024 9:17 AM EST) Cholesterol 207(H) 0 - 200 mg/dL LAB CHEMISTRY METHOD 08/05/2024 12:17 PM EST [facility] Triglycerides 193(H) 0 - 150 mg/dL LAB CHEMISTRY METHOD 08/05/2024 12:17 PM EST [facility] HDL 75 >=40 mg/dL LAB CHEMISTRY METHOD 08/05/2024 12:17 PM EST [facility] LDL Calculated 93 0 - 100 mg/dL LAB CHEMISTRY METHOD 08/05/2024 12:17 PM EST [facility] VLDL Cholesterol Rolando 38.6 mg/dL LAB CHEMISTRY METHOD 08/05/2024 12:17 PM EST [facility] Non HDL Chol. (LDL+VLDL) 132 <145 mg/dL LAB CHEMISTRY METHOD 08/05/2024 12:17 PM EST [facility] Chol/HDL Ratio 2.8 0.0 - 4.4 LAB CHEMISTRY METHOD 08/05/2024 12:17 PM EST [facility] Blood Venous blood specimen / Unknown Venipuncture / Unknown 08/05/2024 9:17 AM EST 08/05/2024 9:17 AM EST us Lauryn ORTEGA LAB BLOOD ORDERABLES Final Re sult [facility] [address] [place] [address], [place] [phone] * DXA BONE DENSITY STUDY 1+ SITS [...] on the World Health Organization criteria, Viji Rosales should be classified as having osteopenia. This patient has a 11% risk of major osteoporotic fracture and a 2.1% risk of hip fracture over the next 10 years. (World Health Organization Fracture Risk Assessment) [facility] Department of Internal Medicine recommends using [...] on the World Health Organization criteria, Viji Rosales should beclassified as having osteopenia. This patient has a 11% risk of majorosteoporotic fracture and a 2.1% risk of hip fracture over the next 10years. (World Health Organization Fracture Risk Assessment) [facility] Department of Internal Medicine recommendsusing National [...] Resu lt * Hepatitis C Screening (12/31/2013) [facility] Hepatitis C Screening abstracted Historical Provider MD HEALTH MAINTENANCE Final Result from Last 3 Months or Most Recently Relevant to Health Maintenance Insurance [employer] Care Teams Accounts Payable Assistant Relationship Specialty Start Date End Date Marjorie Viveros MD [address] [place] [address] PCP - General Internal Medicine 01/13/21
== END ==
LOC: HO.CARD 13:06
PROVIDERS: PCP Internal Medicine; Visit Provider Internal Medicine Cardiovascular Disease
DX: I48.0 Paroxysmal atrial fibrillation (principal)
CPT/HCPCS: 93242

== ENCOUNTER → 2025-04-22 13:09 | Outpatient (BNV) | payer OTHER, SELFPAY | PROVIDERS: PCP Internal Medicine; Visit Provider Internal Medicine | DX: I49.3 Ventricular premature depolarization (principal); I49.49 Other premature depolarization | CPT/HCPCS: 93244 ==

== ENCOUNTER → 2025-05-20 09:00 | Outpatient (REF) | payer OTHER, SELFPAY ==
--- NOTE | ~2025-05-20 | NM_ITS ---
EXERCISE MYOCARDIAL PERFUSION STUDY INDICATION: Chest pain to evaluate for myocardial ischemia TECHNIQUE: The patient was brought in for an exercise perfusion study on 05/20/2025. Patient performed exercise as per Mac protocol and was injected 25 mCi of sestamibi once target heart rate was achieved. Images were obtained using the SPECT gamma camera interlaced with the gating device. Images were obtained in supine position. Resting perfusion study was performed on 05/25/2025. Patient was administered 25 mCi of sestamibi intravenously at rest. Images were then obtained in supine position. Images obtained without without CT attenuation. Total DLP 70 mGy-cm. Images were processed with the software and compared side to side in short axis, horizontal long axis and vertical long axis views. FINDINGS: Raw images were reviewed The stress perfusion study showed both attenuated as well as nonattenuated images show focal area of mildly reduced uptake in the mid anterior wall of the LV myocardium. Remainder of the LV myocardium is normally perfused. The gated study shows normal LV systolic function with calculated LVEF of 74%. LV cavity is normal in size. The gated study shows normal systolic wall thickening and contraction of segments. Resting study shows no change in perfusion pattern compared to stress perfusion study. Gating at rest reveals normal systolic wall motion with ejection fraction at greater than 70%. The findings are consistent with small area of focal fixed defect of the mid anterior wall of unclear significance. Normal wall motion suggests possible attenuation artifact. Clinical correlation suggested. NM/NM cardiolite stress test IMPRESSION: 1. Myocardial perfusion imaging study shows small area of focal fixed mild intensity defect of the mid anterior wall otherwise normal myocardial perfusion. 2. Gated LVEF is 74%. 3. Transient ischemic dilatation not present. EKG revealed negative for ischemia. Electronically signed by: Edwin Kamara MD 05/26/2025 03:30 PM EDT
--- NOTE | 2025-05-20 09:03 | CA_ITS ---
Acquisition Time: 2025-05-20 09:19:42 Total Exercise Time: 00:07:11 Test Indications: sob, afib, svt Medications: see h&p Protocol: JOYCE Max HR: 126 BPM 87% of Pred: 144 BPM Max BP: 154/74 mmHG Max Work Load: 7.8 METS Exercise stress test with exercise 7 min 11 sec of Joyce protocol, achieving 87% MPHR, with mild shortness of breath, no chest discomfort, with isolated PACs and one atrial cuplet, with normotensive response to exercise, with nondiagnostic EKG for ischemia due to baseline abnormality. Nuclear images pending. Test reviewed with Dr Hazel Referred By: Edwin Kamara Electronically Signed By: GARY ORTEGA
--- OUTSIDE RECORDS SUMMARY | 2025-05-20 09:43 | XMS_ITS | Clinical Summary ---
Author Organization [facility] [address] [facility] Address [address] [place] [address] Phone Care Team Providers Care Interior Design Project Manager Name Role Phone Marjorie Viveros MD Primary Care Provider [phone] Allergies No known active allergies Medications cholecalcifero l (VITAMIN D-3) 50 mcg (2,000 unit) tablet Take 1 capsule (1,000 Units total) by mouth 1 (one) time each day. Active calcium carbonate-dania min D 600 mg-10 mcg (400 unit) per tablet Take 1 tablet by mouth 2 (two) times a day. Active atorvastatin (LIPITOR) 20 mg tablet TAKE 1 TABLET BY MOUTH AT BEDTIME 90 each 1 5 Active Eliquis 5 mg tablet Take 1 tablet (5 mg total) by mouth every 12 (twelve) hours. 180 tablet 5 Active metoprolol tartrate (LOPRESSOR) 25 mg tablet Take 1 tablet (25 mg total) by mouth every 12 (twelve) hours. 180 tablet 5 Active metoprolol tartrate (LOPRESSOR) 25 mg tablet Take 2 tablets (50 mg total) by mouth 2 (two) times a day. 360 tablet 1 5 05/11/20 25 Discontinued Eliquis 5 mg tablet Take 1 tablet (5 mg total) by mouth 2 (two) times a day. 180 tablet 1 5 05/11/20 25 Discontinued Active Problems Problem Noted Date Diagnosed Date Pulmonary emboli (CMS/HCC V24, CMS/HCC V28) 03/2025 Overview (11/24/2024): Submassive, bilateral with left popliteal DVT, thrombectomy SVT (supraventricular tachycardia) ([facility] V24) 11/24/2024 Hypercholesterolemia 06/29/2024 Osteopenia 06/29/2024 Vitamin D deficiency 06/29/2024 Overweight (BMI 25.0-29.9) 06/29/2024 Encounters Date Type Department Care Team Description 03/12/2025 2:50 PM EDT - 03/12/2025 11:59 PM EDT Hospital Encounter Radiology Department - [address] [phone] Encounter for screening mammogram for breast cancer Discharge Disposition: Home or Self Care from Last 3 Months Immunizations Immunization Administration Dates Next Due COVID-19 ([employer]izer/Comirnaty) 11yo [...] Bivalent, Or iginal + Ba.1 (Non-US Trademark [employer] Bivalent) 06/24/2022 [employer] SARS-CoV-2 COVID-19, mRNA, LNP-S, preservative free 05/23/2021 [...] D deficiency 08/01/2022 Hypercholesterolemia 06/29/2024 Pulmonary emboli ([facility] V2 4, [facility] V28) 11/24/2024 Submassive, bilateral with l eft popliteal DVT, thrombectomy SVT (supraventricular tachyc ardia) ([facility] V24) 11/24/2024 Family History Medical [...] for your loved ones. For example, child welfare worker or elderly care for an older adult? [...] 11:30 AM EST Office Visit Adult Medicine [address] [phone] Laruyn Fernández PA [address] [place] [address] 03/16/2026 9:20 AM EDT Appointment Radiology Department - [address] [phone] Health Maintenance Due Date Last Done Comments RSV Immunization Adult Patients (1 - 1-dose 75+ series) 2024 Depression Screening 08/19/2024 07/27/2024 COVID-19 Vaccine ( season) 2025 04/28/2024, 05/17/2023, 05/17/2023, Additional history [...] Encounter for screening mammogram for breast cancer LIPID PANEL WITH REFLEX TO DIRECT LDL [...] is recommended in 1 year. Mammo Location: [facility], [address] [place] [address], [id number], . -------- FINAL REPORT -------- Dictated By: Elisa Bean Dictated Date: 03/15/2025 13:31 ET Assigned Physician: Elisa Bean Reviewed and Electronically Signed By: Elisa Bean Signed Date: 03/15/2025 13:32 ET Workstation ID: [id number] Transcribed By: Self Edit Transcribed Date: 03/15/2025 [...] is recommended in 1 year. Mammo Location: [facility], [address] [place] [address], [id number], . -------- FINAL REPORT -------- Dictated By: Elisa Bean Dictated Date: 03/15/2025 13:31 ET Assigned Physician: Elisa Bean Reviewed and Electronically Signed By: Elisa Bean Signed Date: 03/15/2025 13:32 ET Workstation ID: [id number] Transcribed By: Self Edit Transcribed Date: 03/15/2025 13:31 ET Marjorie Viveros MD IM BI PROCEDURES Final Result * (ABNORMAL) Lipid panel with reflex to direct LDL (08/05/2024 9:17 AM EST) Cholesterol 207(H) 0 - 200 mg/dL LAB CHEMISTRY METHOD 08/05/2024 12:17 PM [facility] Triglycerides 193(H) 0 - 150 mg/dL LAB CHEMISTRY METHOD 08/05/2024 12:17 PM EST [facility] HDL 75 >=40 mg/dL LAB CHEMISTRY METHOD 08/05/2024 12:17 PM [facility] LDL Calculated 93 0 - 100 mg/dL LAB CHEMISTRY METHOD 08/05/2024 12:17 PM [facility] VLDL Cholesterol Rolando 38.6 mg/dL LAB CHEMISTRY METHOD 08/05/2024 12:17 PM EST [facility] Non HDL Chol. (LDL+VLDL) 132 <145 mg/dL LAB CHEMISTRY METHOD 08/05/2024 12:17 PM EST [facility] Chol/HDL Ratio 2.8 0.0 - 4.4 LAB CHEMISTRY METHOD 08/05/2024 12:17 PM EST [facility] Blood Venous blood specimen / Unknown Venipuncture / Unknown 08/05/2024 9:17 AM EST 08/05/2024 9:17 AM EST us Lauryn ORTEGA LAB BLOOD ORDERABLES Final Re sult [facility] [address] [place] [address], [place] [phone] * DXA BONE DENSITY STUDY 1+ SITS [...] (World Health Organization Fracture Risk Assessment) [facility] Department of Internal Medicine recommends using [...] (World Health Organization Fracture Risk Assessment) [facility] Department of Internal Medicine recommendsusing National [...] Resu lt * Hepatitis C Screening (12/31/2013) [facility] Hepatitis C Screening abstracted Historical Provider MD HEALTH MAINTENANCE Final Result from Last 3 Months or Most Recently Relevant to Health Maintenance Insurance [employer] Care Teams Interior Design Project Manager Relationship Specialty Start Date End Date Marjorie Viveros MD [address] [place] [address] PCP - General Internal Medicine 01/13/21
== END ==
LOC: HO.CARD 09:00
PROVIDERS: PCP Internal Medicine; Visit Provider Internal Medicine Cardiovascular Disease
DX: I48.0 Paroxysmal atrial fibrillation (principal); I47.10 Supraventricular tachycardia, unspecified; R07.9 Chest pain, unspecified; R06.02 Shortness of breath
CPT/HCPCS: 78452; 93017; A9500

== ENCOUNTER → 2025-05-20 09:03 | Outpatient (BNV) | payer OTHER, SELFPAY | PROVIDERS: PCP Internal Medicine; Visit Provider Nurse Practitioner Family | DX: R07.9 Chest pain, unspecified (principal) | CPT/HCPCS: 78452; 93016; 93018 ==

== ENCOUNTER → 2025-06-07 10:52 | Outpatient (REF) | payer OTHER, SELFPAY ==
--- NOTE | 2025-06-07 10:54 | HM_ITS ---
* Total monitoring time 2 days. * Underlying rhythm is sinus with an average rate of 54/Min. * About 78% of the time, rate < 60/Min. * Rare supraventricular ectopy. * Rare ventricular ectopy. * Atrial fibrillation versus flutter noted. Overall burden 1.5%. Longest episode 44 minutes. Fastest 140/Min. * No significant pauses or high-grade AV blocks. * Heart racing described in patient diary correlates with atrial fibrillation/flutter with rapid rate. MTDD
== END ==
LOC: HO.CARD 10:52
PROVIDERS: Visit Provider Internal Medicine Cardiovascular Disease
DX: I47.10 Supraventricular tachycardia, unspecified (principal); I48.0 Paroxysmal atrial fibrillation
CPT/HCPCS: 93225

== ENCOUNTER → 2025-06-07 10:54 | Outpatient (BNV) | payer OTHER, SELFPAY | PROVIDERS: Visit Provider Internal Medicine | DX: I49.3 Ventricular premature depolarization (principal); I49.49 Other premature depolarization | CPT/HCPCS: 93227 ==

== ENCOUNTER 2025-06-24 12:37 | Outpatient (AMB) | payer OTHER, SELFPAY ==
[2025-06-24 12:44] VITALS: BP 110/70; PULSE 57; BMI 24.9
--- NOTE | 2025-06-24 12:44 | MHC.OFFVIS ---
Vital Signs 06/24/25 12:44 Height 5 ft 5 in Weight 149 lb 14.629 oz BMI 24.9 BP 110/70 Blood Pressure Location Lt brachial Position Sitting Pulse 57 Intake Visit Reasons: 3 mth f/up Intake Note: 3 month follow-up with ekg feeling good Outside [employer] Engineer Required: No Allergies No Known Allergies Allergy (Verified 12/01/24 11:14) Medication List - Last Reconciled 06/24/25 by Edwin Kamara MD apixaban (Eliquis) 5 mg PO BID ascorbic acid (vitamin C) mg PO atorvastatin 20 mg PO BEDTIME calcium carbonate-vitamin D3 600 mg-5 mcg (200 unit) 1 tab PO DAILY dronedarone (Multaq) 400 mg PO BID HPI Comments Details: Viji comes for follow-up. She is doing very well from cardiac perspective. On home monitoring her heart rate has remained stable. She has not had any significant bradycardia. She denies any prolonged palpitation irregular heartbeat. Taking all her medications. Denies any bleeding issues or neurologic events. No exertional chest pain or shortness of breath. No orthopnea, PND. Recent myocardial perfusion imaging was within normal limits with no evidence of ischemia and no significant suggestion of myocardial infarction from before. [facility] Medical History SVT (supraventricular tachycardia) Pulmonary emboli Right lower lobe pneumonia HLD (hyperlipidemia) Social History Household Members: Significant Other Household Members Other:: 2 Housing: House Do you presently have visiting nurse or other home services: No Alcohol intake: current Alcohol intake frequency: holidays/special occasions only Patient Tobacco Use Status: Never used Tobacco Second Hand Smoke Exposure: No service: No Review of Systems Const Denies chills, Denies fatigue, Denies fever(s), Denies frequent falls, Denies weakness, Denies weight gain and Denies weight loss ENT Denies dizziness Card Denies chest pain, Denies leg edema, Denies lightheadedness, Denies palpitations, Denies dyspnea, Denies dyspnea on exertion, Denies orthopnea and Denies other (loss of consciousness) Resp Denies cough, Denies dyspnea and Denies dyspnea on exertion GI Denies hematochezia and Denies change in stool character Musc Denies abnormal gait, Denies muscle weakness, Denies numbness, Denies radiating pain into limb and Denies tingling Neuro Denies abnormal gait, Denies dizziness, Denies frequent falls, Denies numbness, Denies tingling and Denies weakness Endo Denies fatigue and Denies palpitations Physical Exam Vital Signs: Last Vital Signs Pulse 57 06/24/25 12:44 BP 110/70 06/24/25 12:44 BMI result Body Mass Index 24.9 Const General: cooperative, healthy appearing, comfortable and no acute distress Orientation/consciousness: patient oriented x3 Neck Neck: Yes normal visual inspection and Yes no JVD Resp Effort & Inspection: normal respiratory effort Auscultation: clear to auscultation bilaterally, no rales, no rhonchi and no wheezes Cardio Rate: regular rate Rhythm: regular rhythm Heart sounds: S1 normal heart sound present, S2 normal heart sound present, no gallops, no murmurs and no rubs Neuro General: patient oriented x3 Extrem General: Yes normal to inspection, No no pedal edema and No calf tenderness Psych Appearance: grossly normal Mental Status: mental status grossly normal Speech and movement: Normal speech and movement present Office Procedures EKG Details: EKG shows sinus bradycardia with nonspecific STT wave changes representing most likely repolarization abnormality 90261-[id number], Complete Assessment & Plan Assessment & Plan (1) Paroxysmal atrial fibrillation: Code(s): I48.0 - Paroxysmal atrial fibrillation Category: Medical Plan: Highly symptomatic paroxysmal atrial fibrillation as well as SVT. Both of them are currently suppressed on current therapy with Multaq. She is doing extremely well with much improved symptoms and functionality. Continue Multaq therapy and continue to pursue rhythm control approach. Will need EKGs every 3 months and this was discussed with her. Avoidance of stimulants including in form of fhpz-qva-bznxcad medications as well as caffeine and alcohol was discussed. She understands agrees. Continue maintain activity level as tolerated. Continue full oral anticoagulation, currently on Eliquis 5 mg b.i.d.. Semi annual renal function test is recommended. Will follow up in the clinic in 3 months for EKG in in 6 months after echocardiogram. Thank you for allowing me to partake in her care Orders: Orders Basic Metabolic Panel Today I48.0 - Paroxysmal atrial fibrillation CA echo transthoracic complete 6 Months I48.0 - Paroxysmal atrial fibrillation Coding Level of Care Code Est Pt Level 4 (71148) Complex EM visit Add On G2211 Diagnoses Paroxysmal atrial fibrillation I48.0 CPT Codes EKG - CPT: 31804-[id number], Complete ([id number])
--- OUTSIDE RECORDS SUMMARY | 2025-06-24 15:26 | XMS_ITS | Clinical Summary ---
Author Organization [facility] [address] [facility] Address [address], [place] Phone Care Team Providers Care Undercollar Baster Name Role Phone Marjorie Viveros MD Primary Care Provider [phone] Allergies No known active allergies Medications cholecalcifero l (VITAMIN D-3) 50 mcg (2,000 unit) tablet Take 1 capsule (1,000 Units total) by mouth 1 (one) time each day. Active calcium carbonate-dania min D 600 mg-10 mcg (400 unit) per tablet Take 1 tablet by mouth 2 (two) times a day. Active Eliquis 5 mg tablet Take 1 tablet (5 mg total) by mouth every 12 (twelve) hours. 180 tablet 5 Active metoprolol tartrate (LOPRESSOR) 25 mg tablet Take 1 tablet (25 mg total) by mouth every 12 (twelve) hours. 180 tablet 5 Active atorvastatin (LIPITOR) 20 mg tablet TAKE 1 TABLET BY MOUTH AT BEDTIME 90 each 1 5 Active atorvastatin (LIPITOR) 20 mg tablet TAKE 1 TABLET BY MOUTH AT BEDTIME 90 each 1 5 06/21/20 25 Discontinued Active Problems Problem Noted Date Diagnosed Date Pulmonary emboli (CMS/HCC V24, CMS/HCC V28) 03/2025 Overview (11/24/2024): Submassive, bilateral with left popliteal DVT, thrombectomy SVT (supraventricular tachycardia) (CMS/HCC V24) 11/24/2024 Hypercholesterolemia 06/29/2024 Osteopenia 06/29/2024 Vitamin D deficiency 06/29/2024 Overweight (BMI 25.0-29.9) 06/29/2024 Immunizations Immunization Administration Dates Next Due COVID-19 [...] 12 & older) Biv alent, COVID-19 05/17/2023,06/24/2022 [employer] Covid-19 Bivalent, Or iginal + Ba.1 (Non-[place] Trademark COMIRNATY Bivalent) 06/24/2022 [employer] SARS-CoV-2 COVID-19, mRNA, LNP-S, preservative free 05/23/2021 [...] D deficiency 08/01/2022 Hypercholesterolemia 06/29/2024 Pulmonary emboli ([facility] V2 4, [facility] V28) 11/24/2024 Submassive, bilateral with l eft popliteal DVT, thrombectomy SVT (supraventricular tachyc ardia) ([facility] V24) 11/24/2024 Family History Medical History [...] care for your loved ones. For example, director of early childhood education or elderly care for an older adult? [...] AM EST Office [facility] [address] [phone] Lauryn Fernández PA [address], [place] 03/16/2026 9:20 AM EDT Appointment Radiology Department - [address] [phone] Health Maintenance Due Date Last Done Comments [...] is recommended in 1 year. Mammo Location: [facility], [address] [place] [address], [id number], . -------- FINAL REPORT -------- Dictated By: Elisa Bean Dictated Date: 03/15/2025 13:31 ET Assigned Physician: Elisa Bean Reviewed and Electronically Signed By: Elisa Bean Signed Date: 03/15/2025 13:32 ET Workstation ID: [id number] Transcribed By: Self Edit Transcribed Date: 03/15/2025 [...] is recommended in 1 year. Mammo Location: [facility], [address] [place] [address], [id number], . -------- FINAL REPORT -------- Dictated By: Elisa Bean Dictated Date: 03/15/2025 13:31 ET Assigned Physician: Elisa Bean Reviewed and Electronically Signed By: Elisa Bean Signed Date: 03/15/2025 13:32 ET Workstation ID: [id number] Transcribed By: Self Edit Transcribed Date: 03/15/2025 13:31 ET Marjorie Viveros MD IMG BI PROCEDURES Final Result * (ABNORMAL) Lipid panel with reflex to direct LDL (08/05/2024 9:17 AM EST) Cholesterol 207(H) 0 - 200 mg/dL LAB CHEMISTRY METHOD 08/05/2024 12:17 PM [facility] Triglycerides 193(H) 0 - 150 mg/dL LAB CHEMISTRY METHOD 08/05/2024 12:17 PM [facility] HDL 75 >=40 mg/dL LAB CHEMISTRY METHOD 08/05/2024 12:17 PM [facility] LDL Calculated 93 0 - 100 mg/dL LAB CHEMISTRY METHOD 08/05/2024 12:17 PM [facility] VLDL Cholesterol Rolando 38.6 mg/dL LAB CHEMISTRY METHOD 08/05/2024 12:17 PM [facility] Non HDL Chol. (LDL+VLDL) 132 <145 mg/dL LAB CHEMISTRY METHOD 08/05/2024 12:17 PM [facility] Chol/HDL Ratio 2.8 0.0 - 4.4 LAB CHEMISTRY METHOD 08/05/2024 12:17 PM [facility] Blood Venous blood specimen / Unknown Venipuncture / Unknown 08/05/2024 9:17 AM EST 08/05/2024 9:17 AM EST us Lauryn ORTEGA LAB BLOOD ORDERABLES Final Re sult [facility] [address] [facility] [place] [address], * DXA BONE DENSITY STUDY 1+ SITS [...] (World Health Organization Fracture Risk Assessment) [facility] Department of Internal Medicine recommends using [...] (World Health Organization Fracture Risk Assessment) [facility] Department of Internal Medicine recommendsusing National [...] or over-estimation of fracture risk by FRAX. us Lauryn ORTEGA IMG DXA PROCEDURES Final Resu lt * Hepatitis C Screening (12/31/2013) Pathologist [facility] Hepatitis C Screening abstracted Historical Provider HEALTH MAINTENANCE Final Result from Last 3 Months or Most Recently Relevant to Health Maintenance Insurance [employer] Care Teams Undercollar Baster Relationship Specialty Start Date End Date Marjorie Viveros MD [address] [place] [phone] PCP - General Internal Medicine 01/13/21
== END 2025-06-24 13:06 | disposition home or self-care (01) ==
LOC: HO.HCS 12:37
PROVIDERS: PCP Internal Medicine; Visit Provider Internal Medicine Cardiovascular Disease
DX: I48.0 Paroxysmal atrial fibrillation (principal)
CPT/HCPCS: 93010; 99214

== ENCOUNTER 2025-06-24 12:37 | Outpatient (REF) | payer OTHER, SELFPAY ==
[2025-06-24 14:43] LABS: Anion Gap 10 (12-20); Blood Urea Nitrogen 11 mg/dL (9-16); Calcium 10.1 mg/dL (8.4-10.2); Carbon Dioxide 30 mmol/L (22-29); Chloride 106 mmol/L (96-108); Estimated Glomerular Filt Rate > 60; Potassium 4.3 mmol/L (3.3-5.1); Sodium 142 mmol/L (135-145)
== END 2025-06-24 12:38 | disposition home or self-care (01) ==
LOC: HO.LAB 12:37
PROVIDERS: PCP Internal Medicine; Visit Provider Internal Medicine Cardiovascular Disease
DX: I48.0 Paroxysmal atrial fibrillation (principal)
CPT/HCPCS: 36415; 80048; 93005; 99212